=== PATIENT | female | born 1940 | race African-American/Black ===

== ENCOUNTER → 2016-06-04 | Outpatient (CLI) | payer OTHER, MEDICARE ==
[2015-01-16 18:00] VITALS: BP 141/81
[~2016-06-04] MED LIST: ASPI-482 PO; CLON0.1T PO; DILT120T3 PO; LOSA1TAB17 PO; METF10002 PO; METO200T3 PO; NIFE30TA7 PO; SULF1TAB24 PO
--- NOTE | 2016-06-04 10:54 | RAD ---
EXAM: MAMMO HEATH SCREENING BILATERAL. HISTORY: Screening. History of left breast cancer with lumpectomy and radiation 16 years earlier. COMPARISON: 05/17/2015 and 05/10/2014. FINDINGS: 2-D and 3-D tomosynthesis mammograms were obtained of both breasts in the CC and MLO projections. Computer-aided detection (CAD) was utilized. Postsurgical and posttreatment change can be seen involving the left breast, similar to previous study. The breast parenchyma demonstrate scattered fibroglandular densities (tissue density B). No dominant suspicious mass, suspicious microcalcifications, or new architectural distortion is identified. IMPRESSION: No mammographic evidence of malignancy. BI-RADS CATEGORY: 2 BENIGN FINDING RECOMMENDED FOLLOW-UP: 12M 12 MONTH FOLLOW-UP PQRS compliance statement: Patient information was entered into a reminder system with a target due date for the next mammogram. Mammography is a sensitive method for finding small breast cancers, but it does not detect them all and is not a substitute for careful clinical examination. A negative mammogram does not negate a clinically suspicious finding and should not result in delay in biopsying a clinically suspicious abnormality. "Our facility is accredited by the [employer] Mammography Program."
== END | disposition home or self-care (01) ==
LOC: MAMMO 08:52
PROVIDERS: ATTEND Physician Assistant
DX: Z12.31 Encounter for screening mammogram for malignant neoplasm of breast (principal); Z85.3 Personal history of malignant neoplasm of breast
CPT/HCPCS: 77063; G0202; 77067

== ENCOUNTER → 2016-06-17 | Outpatient (CLI) | payer OTHER, MEDICARE ==
[2015-01-16 18:00] VITALS: BP 141/81
--- NOTE | 2016-06-17 16:40 | RAD ---
Exam performed: Left fifth toe including foot 3 views. Clinical Indication: Pain in the left fifth toe while walking, no injury. Date of Service:06/17/16. Comparison :None available Findings: PA, oblique and lateral radiographs of the left fifth toe including x-ray foot reveal the osseous structures to be intact and well aligned. The joint spaces are well preserved and the articular margins are smooth. Impression: No acute abnormality seen in the left fifth toe.
== END | disposition home or self-care (01) ==
LOC: DXRAD 15:56
PROVIDERS: ATTEND Physician Assistant
DX: M79.675 Pain in left toe(s) (principal)
CPT/HCPCS: 73660

== ENCOUNTER → 2016-06-20 | Outpatient (CLI) | payer OTHER, MEDICARE ==
[2015-01-16 18:00] VITALS: BP 141/81
--- NOTE | 2016-06-20 10:09 | RAD ---
Exam performed: Complete abdominal ultrasound. History: Elevated amylase and weight loss. Date of service: 06/20/16. Comparison: None available Technique: Real-time grayscale imaging of the complete abdomen is performed and images are obtained. Findings: The liver is normal in size and echogenicity and measures 14.1 cm in length. There are punctate calcifications in the liver and spleen probably related to remote granulomatous infection. No intra or extrahepatic biliary ductal dilatation is seen. The common bile duct is nondilated and measures 3.7 mm. Bilateral kidneys and spleen appear normal. The right kidney measures 10.4 x 5.4 x 4.97 cm the left kidney measures 10.3 x 5.0 x 3.9 cm. The right kidney appears somewhat malrotated containing 2 simple cysts up to 2 cm. Pancreas, IVC and aorta appear normal. Mild dilation of the pancreatic duct is seen measuring up to 2.4 mm. No free fluid. Impression: 1. 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 2. Prominence of pancreatic duct measuring 2.4 mm. Given absence of additional findings, this is of unknown clinical significance. Further evaluation with CT or MRI of the abdomen with pancreatic protocol may be obtained if clinically indicated.
== END | disposition home or self-care (01) ==
LOC: US 07:53
PROVIDERS: ATTEND Physician Assistant
DX: N28.1 Cyst of kidney, acquired (principal); Q63.2 Ectopic kidney; R94.8 Abnormal results of function studies of other organs and systems
CPT/HCPCS: 76700

== ENCOUNTER 2016-06-27 16:36 | Emergency (ER) | payer OTHER, MEDICARE ==
[~2016-06-27] VITALS: Ht 160 cm; Wt 55.3 kg
[2016-06-27 17:01] VITALS: BP 143/71
--- NOTE | 2016-06-27 18:41 | RAD ---
PROCEDURE Single-view chest and bilateral ribs dated 06/27/2016. HISTORY Back and rib pain. TECHNIQUE Single view of chest performed along with single-view bilateral ribs. Flat. COMPARISON 11/19/2011. FINDINGS Heart and mediastinal contours are stable. There is scattered calcified granuloma, unchanged. Lungs are clear without focal consolidation. No pleural effusion or pneumothorax. Images of the bilateral ribs show no evidence of displaced right or left rib fracture. No acute bony abnormality. IMPRESSION - No acute radiographic abnormality. No evidence of displaced rib fracture. - Old granulomas disease. Electronically signed by: Hermilo Villarreal (June 27, 2016 18:40:49)
--- NOTE | 2016-06-27 18:46 | PHYS DOC ---
General Chief Complaint: BACK PAIN OR INJURY Stated Complaint: BACK PAIN Time Seen by MD: 18:18 Source: patient Exam Limitations: no limitations Problems: History of Present Illness Initial Comments Pt is 76/F to ED c/o b/l rib and upper back pain. Pt denies trauma/exertion, past few days nonspecific rib/back pain. No leg/ bowel/bladder/saddle sx, pain worse with certain movements/reproducible. No cp/ sob/n/v/d, OTC not helping. Sx described as mild to moderate, no midline or bony pain. Timing/Duration: unsure Severity: moderate Modifying Factors: worse with movement, improves with rest Associated Symptoms: other Allergies: Coded Allergies: No Known Drug Allergies (Unverified , 03/24/14) Past Medical History Medical History: diabetes, hypertension Surgical History: noncontributory Family History Significant Family History: hypertension Social History Smoker: non-smoker Alcohol: none Drugs: none Review of Systems Constitutional: denies chills, denies fever Respiratory: see HPI, denies cough, denies shortness of breath Cardiovascular: see HPI, denies chest pain, denies palpitations, denies syncope Gastrointestinal: denies nausea, denies vomiting Genitourinary: denies dysuria, denies frequency, denies hematuria Musculoskeletal: see HPI Psychiatric/Neurological: denies headache, denies numbness, denies paresthesia , denies weakness Physical Exam General Appearance: WD/WN, no apparent distress Ear, Nose, Throat: hearing grossly normal, normal ENT inspection Neck: non-tender, supple Respiratory: normal breath sounds, no respiratory distress, other (rib pain reproducible) Cardiovascular: normal peripheral pulses, regular rate, rhythm Gastrointestinal: non tender, soft Back: no CVA tenderness, no vertebral tenderness Extremities: non-tender, normal inspection Neurologic/Psychiatric: drapery head former II-XII nml as tested, no motor/sensory deficits, alert, normal mood/affect, oriented x 3 Skin: normal color, warm/dry Orders, Labs, Meds PATIENT: ERNA FRENCH ACCOUNT: [id number] : 1940 LOCATION: ER AGE: 76 SEX: F EXAM STATUS: REG ER ORD. PHYSICIAN: SHERIDAN PETERS DO REASON: back /rib pain PROCEDURE: RIBS BILAT & PA CXR 4+V PROCEDURE Single-view chest and bilateral ribs dated 06/27/2016. HISTORY Back and rib pain. TECHNIQUE Single view of chest performed along with single-view bilateral ribs. Flat. COMPARISON 11/19/2011. FINDINGS Heart and mediastinal contours are stable. There is scattered calcified granuloma, unchanged. Lungs are clear without focal consolidation. No pleural effusion or pneumothorax. Images of the bilateral ribs show no evidence of displaced right or left rib fracture. No acute bony abnormality. IMPRESSION - No acute radiographic abnormality. No evidence of displaced rib fracture. - Old granulomas disease. Electronically signed by: Hermilo Villarreal (June 27, 2016 18:40:49) DICTATED AND SIGNED BY: HERMILO VILLARREAL MD DATE: 06/27/16 1840 CC: SHERIDAN PETERS DO; KANCHAN MG; KHADIJAH AGUIRRE DO ~ UA negative Departure Time of Disposition: 19:18 Disposition: 01 HOME, SELF-CARE Diagnosis: costochondritis Condition: GOOD Patient Instructions: Costochondritis, [id number] Additional Instructions: Off work tomorrow. Keep activity to "pain-free." Heating pad to affected area 20 minutes, 4-6 times daily followed by gentle stretching. Follow up with your doctor in 1-2 weeks if no better. Return to ED with new or changing symptoms. KHADIJAH AGUIRRE DO June 27, 2016 18:46
[2016-06-27] MEDS ORDERED: HYDR-971 PO (19:18)
[2016-06-27] MEDS ORDERED: NAPR500T PO (19:18)
[2016-06-27 19:33] LABS: BILIRUBIN,URINE NEG (NEG); CLARITY,URINE CLEAR; COLOR,URINE YELLOW; NITRITE,URINE NEG (NEG); UROBILINOGEN,URINE 2 mg/dL (0.2 mg/dL)
[2016-06-27 19:34] LABS: GLUCOSE,URINE NEG (NEG)
== END 2016-06-27 19:35 | disposition home or self-care (01) ==
LOC: ER 16:36
DX: M94.0 Chondrocostal junction syndrome [Tietze] (principal); E11.9 Type 2 diabetes mellitus without complications; I10 Essential (primary) hypertension
CPT/HCPCS: 71111; 81003; 99284-25

== ENCOUNTER → 2016-07-11 | Outpatient (CLI) | payer OTHER, MEDICARE ==
[2016-06-27 17:01] VITALS: BP 143/71
[~2016-07-11] MED LIST changes: +HYDR-971 PO; +IOHEXOL 300 MG/ML 75 ML VIAL. IV ONE; +NAPR500T PO
[2016-07-11 09:02] LABS: CREATININE 0.8 mg/dL (0.6-1.0); GFR 84.8
--- NOTE | 2016-07-11 10:31 | RAD ---
Indication slightly prominent pancreatic duct. Multiphase imaging through the abdomen was performed. Initially noncontrast images were obtained. This was followed by arterial phase imaging, portal venous phase imaging and final delayed images. Approximately 75 cc of Omnipaque 300 was administered. No oral contrast was administered. Note is made of the abdominal ultrasound examination the accompanying report 06/20/2016. The lung bases are clear. There are scattered granulomas in the liver and spleen. No adrenal anomalies are seen. There are 2 right renal cysts. There is no significant adenopathy seen. No acute finding is apparent in the abdomen. The pancreas appears unremarkable. No pancreatic mass is seen. Atherosclerotic plaquing associated with the abdominal aorta is noted. A duodenal diverticulum is noted IMPRESSION: No acute finding seen in the abdomen. No pancreatic mass seen. Right renal cysts . PQRS Compliance Statement: One or more of the following individualized dose reduction techniques were utilized for this examination: 1. Automated exposure control 2. Adjustment of the mA and/or kV according to patient size 3. Use of iterative reconstruction technique
== END | disposition home or self-care (01) ==
LOC: CT 08:26
PROVIDERS: ATTEND Physician Assistant
DX: K86.89 Other specified diseases of pancreas (principal); N28.1 Cyst of kidney, acquired; J44.9 Chronic obstructive pulmonary disease, unspecified; I10 Essential (primary) hypertension; Z79.01 Long term (current) use of anticoagulants
CPT/HCPCS: 36415; 74170; 82565; Q9967

== ENCOUNTER 2017-01-09 14:55 | Inpatient (IN) | payer OTHER, MEDICARE ==
[~2017-01-09] VITALS: Ht 160 cm; Wt 52.2 kg
[~2017-01-09 14:55] MED LIST changes: -IOHEXOL 300 MG/ML 75 ML VIAL. IV ONE; -LOSA1TAB17 PO; +LOSA1TAB22 PO; -METO200T3 PO; +METO200T5 PO
--- NOTE | 2017-01-09 14:56 | PHYS DOC ---
Past History Past Medical History: Diabetes, Hypertension Past Surgical History: No Surgical History Smoking: Non-smoker Alcohol Use: None Drug Use: None Adult General Chief Complaint Chief Complaint: chest tightness HPI HPI Patient is a 76 year old female who presents with tightness since 3 AM this morning. She states it feels worse when she twists and turns and try to tile picker heavy objects, otherwise she states nothing makes the discomfort better or worse. She feels a little short of breath. She denies any fevers chills nausea or vomiting. She does have a history of diabetes, she is a previous smoker smoke for approximately 20 years and stopped about 20 years ago. 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 Review of Systems Review of Systems Constitutional: Denies fever or chills [] Eyes: Denies change in visual acuity, redness, or eye pain [] HENT: Denies nasal congestion or sore throat [] Respiratory: Denies cough or shortness of breath [] Cardiovascular: No additional information not addressed in HPI [] GI: Denies abdominal pain, nausea, vomiting, bloody stools or diarrhea [] : Denies dysuria or hematuria [] Musculoskeletal: Denies back pain or joint pain [] Integument: Denies rash or skin lesions [] Neurologic: Denies headache, focal weakness or sensory changes [] Endocrine: Denies polyuria or polydipsia [] All other systems were reviewed and found to be within normal limits, except as documented in this note. Allergies Allergies Allergies Coded Allergies Type Severity Reaction Last Updated Verified No Known Drug Allergies 03/24/14 No Physical Exam Physical Exam Constitutional: Well developed, well nourished, no acute distress, non-toxic appearance. [] HENT: Normocephalic, atraumatic, bilateral external ears normal, oropharynx moist, no oral exudates, nose normal. [] Eyes: PERRLA, EOMI, conjunctiva normal, no discharge. [] Neck: Normal range of motion, no tenderness, supple, no stridor. [] Cardiovascular:Heart rate regular rhythm, no murmur [] Lungs & Thorax: Bilateral breath sounds clear to auscultation [] Abdomen: Bowel sounds normal, soft, no tenderness, no masses, no pulsatile masses. [] Skin: Warm, dry, no erythema, no rash. [] Back: No tenderness, no CVA tenderness. [] Extremities: No tenderness, no cyanosis, no clubbing, ROM intact, no edema. [] Neurologic: Alert and oriented X 3, normal motor function, normal sensory function, no focal deficits noted. [] Psychologic: Affect normal, judgement normal, mood normal. [] EKG EKG EKG shows sinus rhythm with rate of [address] elevations, T-wave inversion in lead V3, normal axis, QTC 83 ms, as interpreted by me. Radiology/Procedures Radiology/Procedures [address] [address] IMAGING REPORT Signed PATIENT: ERNA FRENCH ACCOUNT: [id number] : 1940 LOCATION: ER AGE: 76 SEX: F EXAM STATUS: REG ER ORD. PHYSICIAN: JEFF ESCOBAR MD REASON: chest pain PROCEDURE: CHEST PA & LATERAL CHEST PA LATERAL Clinical Indication: chest pain Comparison: Chest radiograph and rib series dated 06/27/2016 Findings: Normal lung volume. Remote granulomatous disease. No focal consolidation. Normal pulmonary vasculature. No pleural effusion or pneumothorax. The cardiomediastinal silhouette and great vessels are normal. Left posterior rib fracture, new from prior exam. IMPRESSION: 1. No focal consolidation. 2. Left fourth posterior rib fracture, new from prior exam. These findings were discussed with Dr. Escobar at 4:15 PM on 01/09/2017. DICTATED AND SIGNED BY: KARI ANNE MD DATE: 01/09/17 9404 CC: JEFF ESCOBAR MD; KANCHAN MG ~ Impressions: Chest pain Left posterior rib fracture Course & Med Decision Making Course & Med Decision Making Pertinent Labs and Imaging studies reviewed. (See chart for details) EKG shows T-wave inversion in V3 which is isolated, chest x-ray shows fourth posterior left-sided rib fracture however this is not where she is having pain, her pain is on the right side. Her labs show slightly elevated CK and CK-MB. Her pain did improve somewhat with nitroglycerin. Her troponin is negative. D- dimer is pending at this time. She's being admitted to the hospitalist in stable condition. She did receive a full dose aspirin. Dragon Disclaimer Dragon Disclaimer This electronic medical record was generated, in whole or in part, using a voice recognition dictation system. Departure Departure: Impression: Primary Impression: Chest pain Disposition: ADMITTED INPATIENT Admitting Physician: Garrett Jung Condition: STABLE Referrals: KANCHAN MG (PCP) JEFF ESCOBAR MD Jan 09, 2017 14:56
[2017-01-09] MEDS ORDERED: NITROGLYCERIN SUBLINGUAL 0.4 MG BOTTLE OF 25. SL PRN (15:15)
[2017-01-09 15:33] LABS: BASO % 1 % (0-3); EOS # 0.1 x10^3/uL (0.0-0.7); EOS % 1 % (0-3); HEMATOCRIT 39.4 % (36.0-47.0); HEMOGLOBIN 13.3 g/dL (12.0-15.5); LYMPH # 1.3 x10^3/uL (1.0-4.8); LYMPH % 27 % (24-48); MEAN CORPUSCULAR HEMOGLOBIN 29 pg (25-35); MEAN CORPUSCULAR HGB CONC 34 g/dL (31-37); MEAN CORPUSCULAR VOLUME 85 fL (79-100); MONO # 0.3 x10^3/uL (0.0-1.1); MONO % 7 % (0-9); NEUT # 3.2 x10^3uL (1.8-7.7); NEUT % 65 % (31-73); PLATELET COUNT 201 x10^3/uL (140-400); RED BLOOD COUNT 4.67 x10^6/uL (3.50-5.40); RED CELL DISTRIBUTION WIDTH 14.6 % (11.5-14.5)
[2017-01-09 15:55] LABS: ALBUMIN 3.6 g/dL (3.4-5.0); CALCIUM 9.1 mg/dL (8.5-10.1); CREATININE 0.8 mg/dL (0.6-1.0); DIRECT BILIRUBIN 0.1 mg/dL (0.0-0.2); GFR 84.8; MAGNESIUM 1.8 mg/dL (1.8-2.4); POTASSIUM 3.9 mmol/L (3.5-5.1); TOTAL BILIRUBIN 0.2 mg/dL (0.2-1.0); TOTAL PROTEIN 7.5 g/dL (6.4-8.2)
[2017-01-09 16:06] LABS: BILIRUBIN,URINE NEG (NEG); CLARITY,URINE HAZY; COLOR,URINE YELLOW; GLUCOSE,URINE NEG (NEG)
[2017-01-09 16:07] LABS: BACTERIA,URINE 0 /HPF (0-FEW); NITRITE,URINE NEG (NEG); SQUAMOUS EPITHELIAL CELL,UR MOD /LPF; UROBILINOGEN,URINE 1 mg/dL (0.2 mg/dL)
--- NOTE | 2017-01-09 16:22 | RAD ---
CHEST PA LATERAL Clinical Indication: chest pain Comparison: Chest radiograph and rib series dated 06/27/2016 Findings: Normal lung volume. Remote granulomatous disease. No focal consolidation. Normal pulmonary vasculature. No pleural effusion or pneumothorax. The cardiomediastinal silhouette and great vessels are normal. Left posterior rib fracture, new from prior exam. IMPRESSION: 1. No focal consolidation. 2. Left fourth posterior rib fracture, new from prior exam. These findings were discussed with Dr. Oh at 4:15 PM on 01/09/2017.
--- NOTE | 2017-01-09 16:24 | EKG ---
[address] [address] Test Date: 2017-01-09 Test Time: 15:41:14 Pat Name: ERNA FRENCH Department: Room: Gender: F Music Video Director: BRANDI : 1940 Requested By: JEFF ESCOBAR Order Number: [id number] Reading MD: Drew Miller MD Measurements Intervals Reading Rate: 83 P: 51 MS: 134 QRS: 20 QRSD: 78 T: 36 QT: 350 QTc: 412 Interpretive Statements SINUS RHYTHM Electronically Signed On 01-14-2017 15:23:06 TICKET COLLECTOR OR USHER by Drew Miller MD
[2017-01-09] MEDS: MORPHINE SULFATE 2 MG/ML DISP.SYRIN. IV/SQ PRN ×2 (17:05→17:55)
[2017-01-09] MEDS ORDERED: ASPIRIN 325 MG TABLET PO ONE (17:30)
[2017-01-09] MEDS ORDERED: ONDANSETRON PF 4 MG/2 ML VIAL. IV PRN (17:30)
[2017-01-09] MEDS ORDERED: IOHEXOL 300 MG/ML 75 ML VIAL. IV ONE (17:45)
[2017-01-09] MEDS ORDERED: CONTRAST GIVEN MC PRN (17:45)
--- NOTE | 2017-01-09 18:19 | RAD ---
CTA Chest with contrast: Clinical History: SHORT OF AIR, ELEVATED D-DIMER
75MLS OMNI 300 IV CONTRAST
NO PRIORS Shortness of breath. Axial helical images of the chest were obtained after the administration of 75 cc of IV Omni 300 and timed appropriately for a pulmonary arterial study. Conventional axial reconstruction was performed in addition to coronal, sagittal and bilateral oblique MIP (maximum intensity projection). This study was ordered to detect possible pulmonary embolism. There are no filling defects to suggest pulmonary embolism. Description There is a compression fracture of the T5 vertebral body with mild loss of stature and with paravertebral soft tissue mass. Linear opacities lung bases are likely discoid atelectasis or scar. There is no mediastinal or hilar lymphadenopathy. There is a moderately large lymph node in the left axilla measures 1.8 cm in its short axis. The thoracic aorta appears normal. Impression: 1. No evidence of pulmonary embolism. 2. Compression fracture of T5 with a perivertebral process left worse than right. This suggests a pathologic fracture with hematoma or soft tissue extension. 3. Moderately large lymph node in the left axilla. Consider possible metastatic breast cancer. PQRS Compliance Statement: One or more of the following individualized dose reduction techniques were utilized for this examination: 1. Automated exposure control 2. Adjustment of the mA and/or kV according to patient size 3. Use of iterative reconstruction technique Electronically signed by: Dannie Guerra III, MD (01/09/2017 6:15 PM) [facility]
[2017-01-09 18:59] VITALS: BP 154/76
[2017-01-09] MEDS ORDERED: DILT240C32 PO (19:17)
[2017-01-09] MEDS ORDERED: LABE200T2 PO (19:17)
[2017-01-09] MEDS ORDERED: LOSA50TA6 PO (19:17)
[2017-01-09] MEDS ORDERED: MONT10TA9 PO (19:17)
[2017-01-09] MEDS ORDERED: CHOL10003 PO (19:18)
[2017-01-09] MEDS: MORPHINE SULFATE 2 MG/ML DISP.SYRIN. IV PRN (20:26)
[2017-01-09 20:37] VITALS: BP 135/69
[2017-01-09 23:01] VITALS: BP 131/66
[2017-01-09] MEDS ORDERED: ALBU8.5H8 IH (23:04)
[2017-01-10] MEDS: MORPHINE SULFATE 2 MG/ML DISP.SYRIN. IV PRN (00:24)
[2017-01-10 04:47] LABS: BASO % 1 % (0-3); EOS # 0.1 x10^3/uL (0.0-0.7); EOS % 1 % (0-3); HEMATOCRIT 39.3 % (36.0-47.0); HEMOGLOBIN 13.4 g/dL (12.0-15.5); LYMPH # 1.5 x10^3/uL (1.0-4.8); LYMPH % 27 % (24-48); MEAN CORPUSCULAR HEMOGLOBIN 29 pg (25-35); MEAN CORPUSCULAR HGB CONC 34 g/dL (31-37); MEAN CORPUSCULAR VOLUME 85 fL (79-100); MONO # 0.5 x10^3/uL (0.0-1.1); MONO % 8 % (0-9); NEUT # 3.4 x10^3uL (1.8-7.7); NEUT % 62 % (31-73); PLATELET COUNT 197 x10^3/uL (140-400); RED CELL DISTRIBUTION WIDTH 14.4 % (11.5-14.5); WHITE BLOOD COUNT 5.4 x10^3/uL (4.0-11.0)
[2017-01-10 04:55] LABS: CREATININE 0.8 mg/dL (0.6-1.0); GFR 84.8; POTASSIUM 4.3 mmol/L (3.5-5.1)
[2017-01-10 05:19] VITALS: BP 154/69
[2017-01-10] MEDS ORDERED: ALBUTEROL SULFATE 8GM INHALER. IH PRN (07:15)
--- NOTE | 2017-01-10 07:24 | PDOC1 ---
History of Present Illness Reason for Visit: Right chest pain History of Present Illness Pt came to ER last night due to chest pain. She reports that it was severe, right sided, and mostly posterior with some radiation around to the front. She denies SOA, dizziness, radiation to arm/neck. Denies MILLAN. Normally sees Dr. Lewis for cardiology. Denies n/v, abd pain, rash, fever, cough. No recent travel. 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 Has a hx of DM, HTN, osteoporosis, and left breast cancer treated w/ lumpectomy and radiation in 2000. Last mammogram was May 2016, was benign. Denies recent night sweats or gland swelling. Pt states she feels about the same. Pain worsens with certain trunk movements, and improves w/ lying still as well as IV morphine. Was able to eat fried chicken last night without problems. Chief Complaint: CHEST PAIN Allergies: Coded Allergies: No Known Drug Allergies (Unverified , 03/24/14) Past Medical History Cardiac: HTN Endocrine: Diabetes, Osteoporosis Past Surgical History: Other (Left breast lumpectomy) Family History: No pertinent hx Past Social History Smoke: No Alcohol: none Drugs: None Lives: with Family Review of Systems Review Of Systems Fourteen system , review of systems has been reviewed. See HPI for pertinent positives and negative responses, other mendez all other systems are negative, non pertinent or non contributory Allergies: Coded Allergies: No Known Drug Allergies (Unverified , 03/24/14) Medications Current Medications Nitroglycerin (Nitrostat) 0.4 mg PRN Q5MIN PRN SL CP RATING > 1/10 Last administered on 01/09/17 15:29; Start 01/09/17 at 15:15; Stop 01/10/17 at 15: 14 Morphine Sulfate (Morphine 2mg Syringe) 2 mg PRN Q15MIN PRN IV/SQ PAIN GREATER THAN 3/10 Last administered on 01/09/17 17:55; Start 01/09/17 at 17:00; Stop 01/09/17 at 18:39; Status DC Aspirin (Manju Aspirin) 325 mg 1X ONCE PO Last administered on 01/09/17 18: 07; Start 01/09/17 at 17:30; Stop 01/09/17 at 17:31; Status DC Ondansetron HCl (Zofran) 4 mg PRN Q4HRS PRN IV NAUSEA/VOMITING; Start at 17:30; Stop 01/10/17 at 17:29 Morphine Sulfate (Morphine 2mg Syringe) 2 mg PRN Q2HR PRN IV PAIN Last administered on 01/10/17 00:24; Start 01/09/17 at 17:30; Stop 01/10/17 at 17: 29 Iohexol (Omnipaque 300 Mg/ml) 75 ml 1X ONCE IV Last administered on 17:44; Start 01/09/17 at 17:45; Stop 01/09/17 at 17:46; Status DC Info (Do NOT chart on this entry -- for MONITORING) 1 each PRN DAILY PRN MC SEE COMMENTS; Start 01/09/17 at 17:45; Stop 01/11/17 at 17:44 Albuterol Sulfate (Ventolin Hfa) 2 puff PRN Q6HRS PRN IH WHEEZING; Start at 07:15; Status UNV Aspirin (Aspirin Enteric Coated) 81 mg DAILY PO ; Start 01/10/17 at 09:00; Status UNV Vitamin D (Vitamin D3) 2,000 unit DAILY PO ; Start 01/10/17 at 09:00; Status UNV Diltiazem HCl (Cardizem 24hr Cd) 480 mg DAILY PO ; Start 01/10/17 at 09:00; Status UNV Labetalol HCl (Trandate) 200 mg BID PO ; Start 01/10/17 at 09:00; Status UNV Losartan Potassium (Cozaar) 50 mg DAILY PO ; Start 01/10/17 at 09:00; Status UNV Montelukast Sodium (Singulair) 10 mg DAILY PO ; Start 01/10/17 at 09:00; Status UNV Active Scripts Active Reported Proair Hfa Inhaler (Albuterol Sulfate) 8.5 Gm Hfa.aer.ad 2 Puff IH PRN Q6HRS PRN Vitamin D3 (Cholecalciferol (Vitamin D3)) 1,000 Unit Tablet 2,000 Unit PO DAILY Losartan Potassium 50 Mg Tablet 50 Mg PO DAILY Montelukast Sodium Tablet (Montelukast Sodium) 10 Mg Tablet 10 Mg PO DAILY Labetalol Hcl 200 Mg Tablet 200 Mg PO BID Diltiazem 24HR Cd (Diltiazem Hcl) 240 Mg Cap.er.24h 2 Cap PO DAILY Aspir 81 (Aspirin) 81 Mg Tablet.dr 81 Mg PO DAILY Metformin Hcl 1,000 Mg Tablet 1,000 Mg PO BIDWMEALS Exam Vital Signs Vital Signs Date Time Temp Pulse Resp B/P (MAP) Pulse Ox O2 Delivery O2 Flow Rate FiO2 01/10/17 05:19 97.8 68 20 154/69 (97) 98 Room Air General Appearance: Alert, Oriented X3, Cooperative, No acute distress HEENT: Atraumatic, PERRLA, EOMI, Mucous membr. moist/pink, Other (Neck supple, full ROM, no JVD, no LAD, no thyromegaly) Respiratory: Clear to auscultation, Normal air movement Heart: Regular rate, Normal S1, Normal S2, No murmurs Abdominal: Normal bowel sounds, Soft, No tenderness, No hepatospenomegaly, No masses Extremities: No edema, Normal pulses, No tenderness/swelling, Other (Left axilla w/ 2 cm lymph node that is rubbery and NTTP) Skin: No breakdown Neuro: Normal speech, Strength at 5/5 X4 ext, Normal tone, Sensation intact, Cranial nerves 3-12 NL, Reflexes 2+, Other (+TTP in the T5 area and surrounding soft tissue. ) Psych/Mental Status: Mental status NL, Mood NL Assessment/Plan Assessment/Plan 1. Chest pain, atypical: EKG shows NSR, troponin neg x 3. Cardiology consulted. I doubt this is cardiac. 2. Elevated d-dimer: CTA negative for PE. 3. Pathologic thoracic compression fracture, T5: Pt does not remember when she started feeling the pain, but I think this is the main source. I am concerned about possible metastatic recurrent breast cancer. I will get a bone scan. Pt has no neurologic findings to suggest spinal cord involvement. 4. Axillary lymphadenopathy: Check u/s, concern for recurrent breast CA. Mammogram done in May 2016 was benign. 5. DM: Hold metformin due to CTA, restart in 72 hrs. 6. HTN: COntinue home meds. 7. DVT proph: Pt fully ambulatory and walks frequently. Low risk. Will do SCD's while in bed. 8. Elevated alk phos: Pt has had w/u with CT and u/s, but I suspect the alk phos is due to the bony abnormalities, not her liver/pancreas. COURSE Allergies Coded Allergies Type Severity Reaction Last Updated Verified No Known Drug Allergies 03/24/14 No Laboratory Tests Test 01/09/17 15:20 01/09/17 15:35 01/09/17 21:45 01/10/17 04:30 White Blood Count 5.0 x10^3/uL (4.0-11.0) 5.4 x10^3/uL (4.0-11.0) Red Blood Count 4.67 x10^6/uL (3.50-5.40) 4.60 x10^6/uL (3.50-5.40) Hemoglobin 13.3 g/dL (12.0-15.5) 13.4 g/dL (12.0-15.5) Hematocrit 39.4 % (36.0-47.0) 39.3 % (36.0-47.0) Mean Corpuscular Volume 85 fL (79-100) 85 fL (79-100) Mean Corpuscular Hemoglobin 29 pg (25-35) 29 pg (25-35) Mean Corpuscular Hemoglobin Concent 34 g/dL (31-37) 34 g/dL (31-37) Red Cell Distribution Width 14.6 % (11.5-14.5) 14.4 % (11.5-14.5) Platelet Count 201 x10^3/uL (140-400) 197 x10^3/uL (140-400) Neutrophils (%) (Auto) 65 % (31-73) 62 % (31-73) Lymphocytes (%) (Auto) 27 % (24-48) 27 % (24-48) Monocytes (%) (Auto) 7 % (0-9) 8 % (0-9) Eosinophils (%) (Auto) 1 % (0-3) 1 % (0-3) Basophils (%) (Auto) 1 % (0-3) 1 % (0-3) Neutrophils # (Auto) 3.2 x10^3uL (1.8-7.7) 3.4 x10^3uL (1.8-7.7) Lymphocytes # (Auto) 1.3 x10^3/uL (1.0-4.8) 1.5 x10^3/uL (1.0-4.8) Monocytes # (Auto) 0.3 x10^3/uL (0.0-1.1) 0.5 x10^3/uL (0.0-1.1) Eosinophils # (Auto) 0.1 x10^3/uL (0.0-0.7) 0.1 x10^3/uL (0.0-0.7) Basophils # (Auto) 0.0 x10^3/uL (0.0-0.2) 0.0 x10^3/uL (0.0-0.2) Prothrombin Time 10.5 SEC (9.4-11.4) Prothromb Time International Ratio 1.0 (0.9-1.1) Activated Partial Thromboplast Time 24 SEC (23-33) D-Dimer (Laura) 1.84 mg/L (0.00-0.50) Sodium Level 143 mmol/L (136-145) 145 mmol/L (136-145) Potassium Level 3.9 mmol/L (3.5-5.1) 4.3 mmol/L (3.5-5.1) Chloride Level 106 mmol/L (98-107) 106 mmol/L (98-107) Carbon Dioxide Level 27 mmol/L (21-32) 31 mmol/L (21-32) Anion Gap 10 (6-14) 8 (6-14) Blood Urea Nitrogen 19 mg/dL (7-20) 19 mg/dL (7-20) Creatinine 0.8 mg/dL (0.6-1.0) 0.8 mg/dL (0.6-1.0) Estimated GFR (Cockcroft-Gault) 84.8 84.8 Glucose Level 94 mg/dL (70-99) 106 mg/dL (70-99) Calcium Level 9.1 mg/dL (8.5-10.1) 9.0 mg/dL (8.5-10.1) Magnesium Level 1.8 mg/dL (1.8-2.4) Total Bilirubin 0.2 mg/dL (0.2-1.0) Direct Bilirubin 0.1 mg/dL (0.0-0.2) Aspartate Amino Transf (AST/SGOT) 27 U/L (15-37) Alanine Aminotransferase (ALT/SGPT) 33 U/L (14-59) Alkaline Phosphatase 135 U/L (46-116) Creatine Kinase 304 U/L (26-192) Creatine Kinase MB (Mass) 8.9 ng/mL (0.0-3.6) Creatine Kinase MB Relative Index 2.9 % (0-4) Troponin I Quantitative < 0.017 ng/mL (0-0.055) < 0.017 ng/mL (0-0.055) < 0.017 ng/mL (0-0.055) ZI-Vla-S-Type Natriuretic Peptide 112 pg/mL (0-124) Total Protein 7.5 g/dL (6.4-8.2) Albumin 3.6 g/dL (3.4-5.0) Lipase 184 U/L (73-393) Urine Collection Type Unknown Urine Color Yellow Urine Clarity Hazy Urine pH 6.5 Urine Specific [place] 1.025 Urine Protein Trace (NEG-TRACE) Urine Glucose (UA) Neg mg/dL (NEG) Urine Ketones (Stick) Neg mg/dL (NEG) Urine Blood Trace (NEG) Urine Nitrite Neg (NEG) Urine Bilirubin Neg (NEG) Urine Urobilinogen Dipstick 1 mg/dL (0.2 mg/dL) Urine Leukocyte Esterase Trace (NEG) Urine RBC 1-2 /HPF (0-2) Urine WBC 1-4 /HPF (0-4) Urine Squamous Epithelial Cells Mod /LPF Urine Bacteria 0 /HPF (0-FEW) Current Medications Medications (Trade) Dose Ordered Sig/Julio Route PRN Reason Start Time Stop Time Status Last Admin Dose Admin Nitroglycerin (Nitrostat) 0.4 mg PRN Q5MIN PRN SL CP RATING > 1/10 01/09/17 15:15 01/10/17 15:14 01/09/17 15:29 Morphine Sulfate (Morphine 2mg Syringe) 2 mg PRN Q15MIN PRN IV/SQ PAIN GREATER THAN 3/10 01/09/17 17:00 01/09/17 18:39 DC 01/09/17 17:55 Aspirin (Manju Aspirin) 325 mg 1X ONCE PO 01/09/17 17:30 01/09/17 17:31 DC 01/09/17 18:07 Ondansetron HCl (Zofran) 4 mg PRN Q4HRS PRN IV NAUSEA/VOMITING 01/09/17 17:30 01/10/17 17:29 Morphine Sulfate (Morphine 2mg Syringe) 2 mg PRN Q2HR PRN IV PAIN 01/09/17 17:30 01/10/17 17:29 01/10/17 00:24 Iohexol (Omnipaque 300 Mg/ml) 75 ml 1X ONCE IV 01/09/17 17:45 01/09/17 17:46 DC 01/09/17 17:44 Info (Do NOT chart on this entry -- for MONITORING) 1 each PRN DAILY PRN MC SEE COMMENTS 01/09/17 17:45 01/11/17 17:44 Albuterol Sulfate (Ventolin Hfa) 2 puff PRN Q6HRS PRN IH WHEEZING 01/10/17 07:15 UNV Aspirin (Aspirin Enteric Coated) 81 mg DAILY PO 01/10/17 09:00 UNV Vitamin D (Vitamin D3) 2,000 unit DAILY PO 01/10/17 09:00 UNV Diltiazem HCl (Cardizem 24hr Cd) 480 mg DAILY PO 01/10/17 09:00 UNV Labetalol HCl (Trandate) 200 mg BID PO 01/10/17 09:00 UNV Losartan Potassium (Cozaar) 50 mg DAILY PO 01/10/17 09:00 UNV Montelukast Sodium (Singulair) 10 mg DAILY PO 01/10/17 09:00 UNV I & O 01/10/17 00:00 Intake Total 240 ml Balance 240 ml Vital Signs Date Time Temp Pulse Resp B/P (MAP) Pulse Ox O2 Delivery O2 Flow Rate FiO2 01/10/17 05:19 97.8 68 20 154/69 (97) 98 Room Air CHEST PA LATERAL Clinical Indication: chest pain Comparison: Chest radiograph and rib series dated 06/27/2016 Findings: Normal lung volume. Remote granulomatous disease. No focal consolidation. Normal pulmonary vasculature. No pleural effusion or pneumothorax. The cardiomediastinal silhouette and great vessels are normal. Left posterior rib fracture, new from prior exam. IMPRESSION: 1. No focal consolidation. 2. Left fourth posterior rib fracture, new from prior exam. CTA Chest with contrast: Clinical History: SHORT OF AIR, ELEVATED D-DIMER
75MLS OMNI 300 IV CONTRAST
NO PRIORS Shortness of breath. Axial helical images of the chest were obtained after the administration of 75 cc of IV Omni 300 and timed appropriately for a pulmonary arterial study. Conventional axial reconstruction was performed in addition to coronal, sagittal and bilateral oblique MIP (maximum intensity projection). This study was ordered to detect possible pulmonary embolism. There are no filling defects to suggest pulmonary embolism. Description There is a compression fracture of the T5 vertebral body with mild loss of stature and with paravertebral soft tissue mass. Linear opacities lung bases are likely discoid atelectasis or scar. There is no mediastinal or hilar lymphadenopathy. There is a moderately large lymph node in the left axilla measures 1.8 cm in its short axis. The thoracic aorta appears normal. Impression: 1. No evidence of pulmonary embolism. 2. Compression fracture of T5 with a perivertebral process left worse than right. This suggests a pathologic fracture with hematoma or soft tissue extension. 3. Moderately large lymph node in the left axilla. Consider possible metastatic breast cancer. PQRS Compliance Statement: One or more of the following individualized dose reduction techniques were utilized for this examination: 1. Automated exposure control 2. Adjustment of the mA and/or kV according to patient size 3. Use of iterative reconstruction technique MANJU CLAY MD Jan 10, 2017 07:24
[2017-01-10] MEDS ORDERED: ALBUTEROL SULFATE 2.5 MG/3 ML NEBU. NEB PRN (07:30)
[2017-01-10] MEDS ORDERED: LOSARTAN 50 MG TABLET. PO SCH (09:00)
[2017-01-10] MEDS ORDERED: LABETALOL HCL 200 MG TABLET PO SCH (09:00)
[2017-01-10] MEDS ORDERED: ASPIRIN ENTERIC COATED 81 MG TABLET.DR. PO SCH (09:00)
[2017-01-10] MEDS ORDERED: MONTELUKAST 10 MG TABLET. PO SCH (09:00)
[2017-01-10] MEDS ORDERED: CHOLECALCIFEROL (VITAMIN D3) 1,000 UNIT TABLET PO SCH (09:00)
--- NOTE | 2017-01-10 09:16 | PDOC2 ---
CONSULT Date of Admission DATE: 01/10/17 TIME: 09:00 Reason for Consult: chest pain Problem List Problems Medical Problems: (1) Chest pain Status: Acute History of Present Illness Ms Melgoza is a 76 year old female with history of hypertension, hyperlipidemia and diabetes mellitus. She reports waking from sleep yesterday morning with discomfort in her left subscapular region with pressure radiating to her chest. She worked her normal shift in housekeeping and reports some increased discomfort with upper body movements but otherwise steady level of discomfort all day. She denies any associated symptoms. She denies any limitations in her functional capacity. She denies dyspnea, palpitations, lightheadedness or syncope. She denies congestive symptoms. She is currently free from discomfort. Past Medical History ECHO 02/06/2016 Left ventricle systolic function is normal. The Ejection Fraction is 60-65%. There is normal LV segmental wall motion. Trace to mild mitral regurgitation. Mild tricuspid regurgitation. The PA pressure was estimated at 25 mmHg. There is no evidence of significant pericardial effusion. Cardiovascular: HTN, hyperipidemia Heme/Onc: Other (breast cancer) Musculoskeletal: Other (osteoporosis ) Endocrine: Diabetes, Other (benign thyroid tumor) Past Surgical History lumpectomy and radiation therapy for breast CA benign thyroid tumor removal Family History no family history of CAD + history of cancer Social History non smoker, no ETOH, no illicit drugs, works in housekeeping at [employer] Current Medications Current Medications Nitroglycerin (Nitrostat) 0.4 mg PRN Q5MIN PRN SL CP RATING > 1/10 Last administered on 01/09/17 15:29; Start 01/09/17 at 15:15; Stop 01/10/17 at 15: 14 Morphine Sulfate (Morphine 2mg Syringe) 2 mg PRN Q15MIN PRN IV/SQ PAIN GREATER THAN 3/10 Last administered on 01/09/17 17:55; Start 01/09/17 at 17:00; Stop 01/09/17 at 18:39; Status DC Aspirin (Manju Aspirin) 325 mg 1X ONCE PO Last administered on 01/09/17 18: 07; Start 01/09/17 at 17:30; Stop 01/09/17 at 17:31; Status DC Ondansetron HCl (Zofran) 4 mg PRN Q4HRS PRN IV NAUSEA/VOMITING; Start at 17:30; Stop 01/10/17 at 17:29 Morphine Sulfate (Morphine 2mg Syringe) 2 mg PRN Q2HR PRN IV PAIN Last administered on 01/10/17 00:24; Start 01/09/17 at 17:30; Stop 01/10/17 at 17: 29 Iohexol (Omnipaque 300 Mg/ml) 75 ml 1X ONCE IV Last administered on 17:44; Start 01/09/17 at 17:45; Stop 01/09/17 at 17:46; Status DC Info (Do NOT chart on this entry -- for MONITORING) 1 each PRN DAILY PRN MC SEE COMMENTS; Start 01/09/17 at 17:45; Stop 01/11/17 at 17:44 Albuterol Sulfate (Ventolin Hfa) 2 puff PRN Q6HRS PRN IH WHEEZING; Start at 07:15; Stop 01/10/17 at 07:18; Status DC Aspirin (Aspirin Enteric Coated) 81 mg DAILY PO Last administered on 01/10/17 08:27; Start 01/10/17 at 09:00 Vitamin D (Vitamin D3) 2,000 unit DAILY PO Last administered on 01/10/17 08:26 ; Start 01/10/17 at 09:00 Diltiazem HCl (Cardizem 24hr Cd) 480 mg DAILY PO Last administered on 08:27; Start 01/10/17 at 09:00 Labetalol HCl (Trandate) 200 mg BID PO Last administered on 01/10/17 08:27; Start 01/10/17 at 09:00 Losartan Potassium (Cozaar) 50 mg DAILY PO Last administered on 01/10/17 08:27 ; Start 01/10/17 at 09:00 Montelukast Sodium (Singulair) 10 mg DAILY PO Last administered on 01/10/17 08 :27; Start 01/10/17 at 09:00 Albuterol Sulfate (Ventolin) 2.5 mg PRN Q6HRS PRN NEB SHORTNESS OF BREATH; Start 01/10/17 at 07:30 Active Scripts Active Reported Proair Hfa Inhaler (Albuterol Sulfate) 8.5 Gm Hfa.aer.ad 2 Puff IH PRN Q6HRS PRN Vitamin D3 (Cholecalciferol (Vitamin D3)) 1,000 Unit Tablet 2,000 Unit PO DAILY Losartan Potassium 50 Mg Tablet 50 Mg PO DAILY Montelukast Sodium Tablet (Montelukast Sodium) 10 Mg Tablet 10 Mg PO DAILY Labetalol Hcl 200 Mg Tablet 200 Mg PO BID Diltiazem 24HR Cd (Diltiazem Hcl) 240 Mg Cap.er.24h 2 Cap PO DAILY Aspir 81 (Aspirin) 81 Mg Tablet.dr 81 Mg PO DAILY Metformin Hcl 1,000 Mg Tablet 1,000 Mg PO BIDWMEALS Allergies: Coded Allergies: No Known Drug Allergies (Unverified , 03/24/14) Review of System as per HPI or negative General: Alert, Oriented X3, Cooperative, No acute distress HEENT: Atraumatic, EOMI, Mucous membr. moist/pink Lungs: Clear to auscultation, Normal air movement Heart: Regular rate, Normal S1, Normal S2, No murmurs, Other (no gallops, clicks or rubs) Abdomen: Normal bowel sounds, Soft, No tenderness Extremities: No cyanosis, No edema, Normal pulses Neuro: Normal speech, Strength at 5/5 X4 ext Psych/Mental Status: Mental status NL, Mood NL VITALS Vital Signs Date Time Temp Pulse Resp B/P (MAP) Pulse Ox O2 Delivery O2 Flow Rate FiO2 01/10/17 08:27 68 154/69 01/10/17 05:19 97.8 20 98 Room Air Labs Laboratory Tests Test 01/09/17 15:20 01/09/17 15:35 01/09/17 21:45 01/10/17 04:30 White Blood Count 5.0 x10^3/uL (4.0-11.0) 5.4 x10^3/uL (4.0-11.0) Red Blood Count 4.67 x10^6/uL (3.50-5.40) 4.60 x10^6/uL (3.50-5.40) Hemoglobin 13.3 g/dL (12.0-15.5) 13.4 g/dL (12.0-15.5) Hematocrit 39.4 % (36.0-47.0) 39.3 % (36.0-47.0) Mean Corpuscular Volume 85 fL (79-100) 85 fL (79-100) Mean Corpuscular Hemoglobin 29 pg (25-35) 29 pg (25-35) Mean Corpuscular Hemoglobin Concent 34 g/dL (31-37) 34 g/dL (31-37) Red Cell Distribution Width 14.6 % (11.5-14.5) 14.4 % (11.5-14.5) Platelet Count 201 x10^3/uL (140-400) 197 x10^3/uL (140-400) Neutrophils (%) (Auto) 65 % (31-73) 62 % (31-73) Lymphocytes (%) (Auto) 27 % (24-48) 27 % (24-48) Monocytes (%) (Auto) 7 % (0-9) 8 % (0-9) Eosinophils (%) (Auto) 1 % (0-3) 1 % (0-3) Basophils (%) (Auto) 1 % (0-3) 1 % (0-3) Neutrophils # (Auto) 3.2 x10^3uL (1.8-7.7) 3.4 x10^3uL (1.8-7.7) Lymphocytes # (Auto) 1.3 x10^3/uL (1.0-4.8) 1.5 x10^3/uL (1.0-4.8) Monocytes # (Auto) 0.3 x10^3/uL (0.0-1.1) 0.5 x10^3/uL (0.0-1.1) Eosinophils # (Auto) 0.1 x10^3/uL (0.0-0.7) 0.1 x10^3/uL (0.0-0.7) Basophils # (Auto) 0.0 x10^3/uL (0.0-0.2) 0.0 x10^3/uL (0.0-0.2) Prothrombin Time 10.5 SEC (9.4-11.4) Prothromb Time International Ratio 1.0 (0.9-1.1) Activated Partial Thromboplast Time 24 SEC (23-33) D-Dimer (Laura) 1.84 mg/L (0.00-0.50) Sodium Level 143 mmol/L (136-145) 145 mmol/L (136-145) Potassium Level 3.9 mmol/L (3.5-5.1) 4.3 mmol/L (3.5-5.1) Chloride Level 106 mmol/L (98-107) 106 mmol/L (98-107) Carbon Dioxide Level 27 mmol/L (21-32) 31 mmol/L (21-32) Anion Gap 10 (6-14) 8 (6-14) Blood Urea Nitrogen 19 mg/dL (7-20) 19 mg/dL (7-20) Creatinine 0.8 mg/dL (0.6-1.0) 0.8 mg/dL (0.6-1.0) Estimated GFR (Cockcroft-Gault) 84.8 84.8 Glucose Level 94 mg/dL (70-99) 106 mg/dL (70-99) Calcium Level 9.1 mg/dL (8.5-10.1) 9.0 mg/dL (8.5-10.1) Magnesium Level 1.8 mg/dL (1.8-2.4) Total Bilirubin 0.2 mg/dL (0.2-1.0) Direct Bilirubin 0.1 mg/dL (0.0-0.2) Aspartate Amino Transf (AST/SGOT) 27 U/L (15-37) Alanine Aminotransferase (ALT/SGPT) 33 U/L (14-59) Alkaline Phosphatase 135 U/L (46-116) Creatine Kinase 304 U/L (26-192) Creatine Kinase MB (Mass) 8.9 ng/mL (0.0-3.6) Creatine Kinase MB Relative Index 2.9 % (0-4) Troponin I Quantitative < 0.017 ng/mL (0-0.055) < 0.017 ng/mL (0-0.055) < 0.017 ng/mL (0-0.055) KP-[id number]-U-Type Natriuretic Peptide 112 pg/mL (0-124) Total Protein 7.5 g/dL (6.4-8.2) Albumin 3.6 g/dL (3.4-5.0) Lipase 184 U/L (73-393) Urine Collection Type Unknown Urine Color Yellow Urine Clarity Hazy Urine pH 6.5 Urine Specific [place] 1.025 Urine Protein Trace (NEG-TRACE) Urine Glucose (UA) Neg mg/dL (NEG) Urine Ketones (Stick) Neg mg/dL (NEG) Urine Blood Trace (NEG) Urine Nitrite Neg (NEG) Urine Bilirubin Neg (NEG) Urine Urobilinogen Dipstick 1 mg/dL (0.2 mg/dL) Urine Leukocyte Esterase Trace (NEG) Urine RBC 1-2 /HPF (0-2) Urine WBC 1-4 /HPF (0-4) Urine Squamous Epithelial Cells Mod /LPF Urine Bacteria 0 /HPF (0-FEW) Test 01/10/17 07:46 Glucose (Fingerstick) 124 mg/dL (70-99) Images EKG - sinus rhythm without ischemic changes CTA - Impression: 1. No evidence of pulmonary embolism. 2. Compression fracture of T5 with a perivertebral process left worse than right. This suggests a pathologic fracture with hematoma or soft tissue extension. 3. Moderately large lymph node in the left axilla. Consider possible metastatic breast cancer. Assessment/Plan 1. Chest pain, atypical - NH ruled out. Suspect musculoskeletal in nature. As she does have risk factors including resistant hypertension, hyperlipidemia and diabetes, I believe a stress test would not be unreasonable but could be achieved outpatient. Continue current medications to include labetalol and aspirin. check lipids and add statin as indicated. Last echo was completed in Jan 2016 and revealed normal LV function and wall motion. 2. hypertension - fair control on multiple medications. Increase Losartan. Could consider renal duplex for LOGAN. 3. hyperlipidemia - check lipids. 4. elevated d dimer - CT negative for PE 5. Pathologic thoracic compression fracture, T - per IM 6. lymphadenopathy with history of breast cancer - bone scan today, per IM 7. Diabetes mellitus - per IM Problems: SILVIA STRAUSS APRN Jan 10, 2017 09:16
[2017-01-10 11:24] VITALS: BP 159/71
[2017-01-10 16:11] VITALS: BP 147/69
--- NOTE | 2017-01-10 16:13 | RAD ---
Bone scan Indication: Pathologic T5 fractures and right posterior rib fractures Technique: Nuclear medicine bone scan would 25 mCi of technetium 99m MDP with anterior and posterior planar images of the whole body and spot images of the right and left ribs. Comparison: CT chest from 01/09/2017 Findings: Focal uptake is noted in the left first rib, 12th and 10th rib. Focal uptake also noted in the T5, T8 and L1 vertebral body. Focal uptake also noted in the right superior aspect of the skull. Symmetric shoulder, knee and SI joint uptake most likely degenerative. Impression: Multifocal uptake of the radiopharmaceutical as described above concerning for osteoblastic process most likely blastic metastasis if patient has history of known malignancy.
--- NOTE | 2017-01-10 16:18 | RAD ---
Ultrasound of the left axilla Indication: History of left breast cancer in 2000. Enlarged lymph nodes seen on CT angiography. History of left lumpectomy. Technique: Grayscale and color Doppler ultrasound images of the left axilla. Comparison: CT chest from 01/09/2017 Findings: Lobulated hypoechoic mass measuring 2.8 x 2.7 x 1.5 cm seen in the left axilla which corresponds to the enlarged lymph node seen on the CT chest. There is some internal vascularity noted in this lesion. Additional small satellite lymph nodes are seen adjacent to the dominant lymph node as described above. Impression: Mass in the left axilla which corresponds to the enlarged lymph node seen on previous CT concerning for metastasis in the setting of known history of breast cancer. Biopsy recommended.
[2017-01-10 18:29] VITALS: BP 156/75
[2017-01-10] MEDS ORDERED: TRAM50TA PO ×2 (19:16→19:32)
--- NOTE | 2017-01-10 19:19 | DISCH ---
DISCHARGE INSTRUCTIONS-DC Condition on Discharge Condition on Discharge: Stable Problems: Activity after Discharge Activity Instructions for Disc: Activity as tolerated (No heavy lifting) Diet after Discharge Diet after Discharge: Cardiac, Diabetic No Calorie Level Checks after Discharge Checks after discharge: Check blood sugar, ac/hs Contacting the DRAbdulkadir after DC Call your doctor for: If your condition worsens Follow-Up Follow up with: Oncology next week (Dr. Gil) Follow up with: PCP in 2 weeks MANJU CLAY MD Jan 10, 2017 19:19
--- NOTE | 2017-01-10 19:25 | PDOC3 ---
Discharge Summary Discharge Summary Date of Admission Date of Admission: Jan 09, 2017 at 17:10 Admitting Diagnosis Chest pain T5 compression fracture HTN DM2 Date of Discharge: Jan 10, 2017 Discharge Diagnosis Chest pain T5 compression fracture HTN DM2 Metastatic breast cancer Laboratory Findings Laboratory Tests Test 01/09/17 15:20 01/09/17 15:35 01/09/17 21:45 01/10/17 04:30 White Blood Count 5.0 x10^3/uL (4.0-11.0) 5.4 x10^3/uL (4.0-11.0) Red Blood Count 4.67 x10^6/uL (3.50-5.40) 4.60 x10^6/uL (3.50-5.40) Hemoglobin 13.3 g/dL (12.0-15.5) 13.4 g/dL (12.0-15.5) Hematocrit 39.4 % (36.0-47.0) 39.3 % (36.0-47.0) Mean Corpuscular Volume 85 fL (79-100) 85 fL (79-100) Mean Corpuscular Hemoglobin 29 pg (25-35) 29 pg (25-35) Mean Corpuscular Hemoglobin Concent 34 g/dL (31-37) 34 g/dL (31-37) Red Cell Distribution Width 14.6 % (11.5-14.5) 14.4 % (11.5-14.5) Platelet Count 201 x10^3/uL (140-400) 197 x10^3/uL (140-400) Neutrophils (%) (Auto) 65 % (31-73) 62 % (31-73) Lymphocytes (%) (Auto) 27 % (24-48) 27 % (24-48) Monocytes (%) (Auto) 7 % (0-9) 8 % (0-9) Eosinophils (%) (Auto) 1 % (0-3) 1 % (0-3) Basophils (%) (Auto) 1 % (0-3) 1 % (0-3) Neutrophils # (Auto) 3.2 x10^3uL (1.8-7.7) 3.4 x10^3uL (1.8-7.7) Lymphocytes # (Auto) 1.3 x10^3/uL (1.0-4.8) 1.5 x10^3/uL (1.0-4.8) Monocytes # (Auto) 0.3 x10^3/uL (0.0-1.1) 0.5 x10^3/uL (0.0-1.1) Eosinophils # (Auto) 0.1 x10^3/uL (0.0-0.7) 0.1 x10^3/uL (0.0-0.7) Basophils # (Auto) 0.0 x10^3/uL (0.0-0.2) 0.0 x10^3/uL (0.0-0.2) Prothrombin Time 10.5 SEC (9.4-11.4) Prothromb Time International Ratio 1.0 (0.9-1.1) Activated Partial Thromboplast Time 24 SEC (23-33) D-Dimer (Laura) 1.84 mg/L (0.00-0.50) Sodium Level 143 mmol/L (136-145) 145 mmol/L (136-145) Potassium Level 3.9 mmol/L (3.5-5.1) 4.3 mmol/L (3.5-5.1) Chloride Level 106 mmol/L (98-107) 106 mmol/L (98-107) Carbon Dioxide Level 27 mmol/L (21-32) 31 mmol/L (21-32) Anion Gap 10 (6-14) 8 (6-14) Blood Urea Nitrogen 19 mg/dL (7-20) 19 mg/dL (7-20) Creatinine 0.8 mg/dL (0.6-1.0) 0.8 mg/dL (0.6-1.0) Estimated GFR (Cockcroft-Gault) 84.8 84.8 Glucose Level 94 mg/dL (70-99) 106 mg/dL (70-99) Calcium Level 9.1 mg/dL (8.5-10.1) 9.0 mg/dL (8.5-10.1) Magnesium Level 1.8 mg/dL (1.8-2.4) Total Bilirubin 0.2 mg/dL (0.2-1.0) Direct Bilirubin 0.1 mg/dL (0.0-0.2) Aspartate Amino Transf (AST/SGOT) 27 U/L (15-37) Alanine Aminotransferase (ALT/SGPT) 33 U/L (14-59) Alkaline Phosphatase 135 U/L (46-116) Creatine Kinase 304 U/L (26-192) Creatine Kinase MB (Mass) 8.9 ng/mL (0.0-3.6) Creatine Kinase MB Relative Index 2.9 % (0-4) Troponin I Quantitative < 0.017 ng/mL (0-0.055) < 0.017 ng/mL (0-0.055) < 0.017 ng/mL (0-0.055) YF-Cel-W-Type Natriuretic Peptide 112 pg/mL (0-124) Total Protein 7.5 g/dL (6.4-8.2) Albumin 3.6 g/dL (3.4-5.0) Lipase 184 U/L (73-393) Thyroid Stimulating Hormone (TSH) 2.222 uIU/mL (0.358-3.740) Urine Collection Type Unknown Urine Color Yellow Urine Clarity Hazy Urine pH 6.5 Urine Specific [place] 1.025 Urine Protein Trace (NEG-TRACE) Urine Glucose (UA) Neg mg/dL (NEG) Urine Ketones (Stick) Neg mg/dL (NEG) Urine Blood Trace (NEG) Urine Nitrite Neg (NEG) Urine Bilirubin Neg (NEG) Urine Urobilinogen Dipstick 1 mg/dL (0.2 mg/dL) Urine Leukocyte Esterase Trace (NEG) Urine RBC 1-2 /HPF (0-2) Urine WBC 1-4 /HPF (0-4) Urine Squamous Epithelial Cells Mod /LPF Urine Bacteria 0 /HPF (0-FEW) Triglycerides Level 28 mg/dL (0-150) Cholesterol Level 170 mg/dL (0-200) LDL Cholesterol, Calculated 107 mg/dL (0-100) VLDL Cholesterol, Calculated 5 mg/dL (0-40) Non-HDL Cholesterol Calculated 112 mg/dL (0-129) HDL Cholesterol 58 mg/dL (40-60) Cholesterol/HDL Ratio 2.0 Test 01/10/17 07:46 01/10/17 11:45 01/10/17 16:37 Glucose (Fingerstick) 124 mg/dL (70-99) 132 mg/dL (70-99) 105 mg/dL (70-99) Hospital Course Pt presented to ER w/ chest pain, which was actually reported as back pain by pt. CT of chest ruled out PE, but showed pathologic compression fracture at T5 , a rib fracture, and abnormal lymph node in left axilla. Subsequent bone scan showed scattered osteoblastic lesions c/w metastatic disease. The sonogram of the left axilla also showed likely metastatic disease, presumably from the breast since the left breast is where she had cancer 16 years ago. Cardiology was consulted about her chest pain, but this was felt to be non-cardiac. Echo is pending at time of discharge. Metformin is held until Saturday 01/13 due to CTA and IV contrast. Pt will be given some tramadol to go home with pending appt w/ oncology next week. I had a long discussion w/ pt and her son about the findings. I suspect that her recent elevation of alk phos has been due to the bone lesions and not her pancreas. I have advised that she defer her GI referral for now until evaluated fully by oncology. She will likely need a biopsy of her lymph node. I have advised that she stay off work until she has received more information about her prognosis. We will attempt to get her in [place] with oncology at [facility] early next week. Pt instructed to f/u with PCP after that. I did tell pt that although this does look like stage IV metastatic cancer, we will not know for sure until she has a biopsy of the lymph node. She v/u. Condition at Discharge: Stable Home Meds Active Scripts Tramadol Hcl (TRAMADOL HCL) 50 Mg Tablet, 50 MG PO PRN Q6HRS Y for PAIN, #30 TAB Prov:MANJU CLAY MD 01/10/17 Reported Medications Albuterol Sulfate (PROAIR HFA INHALER) 8.5 Gm Hfa.aer.ad, 2 PUFF IH PRN Q6HRS Y for WHEEZING 01/09/17 Cholecalciferol (Vitamin D3) (VITAMIN D3) 1,000 Unit Tablet, 2000 UNIT PO DAILY for SUPPLEMENT, TAB 01/09/17 Losartan Potassium (LOSARTAN POTASSIUM) 50 Mg Tablet, 50 MG PO DAILY for HYPERTENSION, SEE COMMENTS 01/09/17 Montelukast Sodium (MONTELUKAST SODIUM TABLET) 10 Mg Tablet, 10 MG PO DAILY for ASTHMA 01/09/17 Labetalol Hcl (LABETALOL HCL) 200 Mg Tablet, 200 MG PO BID for HYPERTENSION, SEE COMMENTS 01/09/17 Diltiazem Hcl (DILTIAZEM 24HR CD) 240 Mg Cap.er.24h, 2 CAP PO DAILY for HYPERTENSION, SEE COMMENTS, CAP.SR 01/09/17 Aspirin (ASPIR 81) 81 Mg Tablet.dr, 81 MG PO DAILY 03/24/14 Metformin Hcl (METFORMIN HCL) 1,000 Mg Tablet, 1000 MG PO BIDWMEALS for ANTI- DIABETIC, TAB 0 Refills 03/24/14 Discontinued Reported Medications Diltiazem Hcl (DILTIAZEM HCL TABLET) 120 Mg Tablet, 120 MG PO QID for FOR HYPERTENSION, #30 TAB 0 Refills 07/19/14 Losartan/Hydrochlorothiazide (LOSARTAN-HCTZ 100-25 MG TAB) 1 Each Tablet, 1 TAB PO DAILY, #30 TAB 5 Refills 07/19/14 Metoprolol Succinate (METOPROLOL SUCCINATE ( XL )) 200 Mg Tab.er.24h, 200 MG PO DAILY for FOR HYPERTENSION, #30 TAB 0 Refills 03/24/14 Inpatient Meds Current Medications Nitroglycerin (Nitrostat) 0.4 mg PRN Q5MIN PRN SL CP RATING > 1/10 Last administered on 01/09/17 15:29; Start 01/09/17 at 15:15; Stop 01/10/17 at 15: 14; Status DC Morphine Sulfate (Morphine 2mg Syringe) 2 mg PRN Q15MIN PRN IV/SQ PAIN GREATER THAN 3/10 Last administered on 01/09/17 17:55; Start 01/09/17 at 17:00; Stop 01/09/17 at 18:39; Status DC Aspirin (Manju Aspirin) 325 mg 1X ONCE PO Last administered on 01/09/17 18: 07; Start 01/09/17 at 17:30; Stop 01/09/17 at 17:31; Status DC Ondansetron HCl (Zofran) 4 mg PRN Q4HRS PRN IV NAUSEA/VOMITING; Start at 17:30; Stop 01/10/17 at 17:29; Status DC Morphine Sulfate (Morphine 2mg Syringe) 2 mg PRN Q2HR PRN IV PAIN Last administered on 01/10/17 00:24; Start 01/09/17 at 17:30; Stop 01/10/17 at 17: 29; Status DC Iohexol (Omnipaque 300 Mg/ml) 75 ml 1X ONCE IV Last administered on 17:44; Start 01/09/17 at 17:45; Stop 01/09/17 at 17:46; Status DC Info (Do NOT chart on this entry -- for MONITORING) 1 each PRN DAILY PRN MC SEE COMMENTS; Start 01/09/17 at 17:45; Stop 01/11/17 at 17:44 Albuterol Sulfate (Ventolin Hfa) 2 puff PRN Q6HRS PRN IH WHEEZING; Start at 07:15; Stop 01/10/17 at 07:18; Status DC Aspirin (Aspirin Enteric Coated) 81 mg DAILY PO Last administered on 01/10/17 08:27; Start 01/10/17 at 09:00 Vitamin D (Vitamin D3) 2,000 unit DAILY PO Last administered on 01/10/17 08:26 ; Start 01/10/17 at 09:00 Diltiazem HCl (Cardizem 24hr Cd) 480 mg DAILY PO Last administered on 08:27; Start 01/10/17 at 09:00 Labetalol HCl (Trandate) 200 mg BID PO Last administered on 01/10/17 08:27; Start 01/10/17 at 09:00 Losartan Potassium (Cozaar) 50 mg DAILY PO Last administered on 01/10/17 08:27 ; Start 01/10/17 at 09:00; Stop 01/10/17 at 09:18; Status DC Montelukast Sodium (Singulair) 10 mg DAILY PO Last administered on 01/10/17 08 :27; Start 01/10/17 at 09:00 Albuterol Sulfate (Ventolin) 2.5 mg PRN Q6HRS PRN NEB SHORTNESS OF BREATH; Start 01/10/17 at 07:30 Losartan Potassium (Cozaar) 100 mg DAILY PO ; Start 01/11/17 at 09:00 Active Scripts Active Tramadol Hcl (Tramadol HCl) 50 Mg Tablet 50 Mg PO PRN Q6HRS PRN Reported Proair Hfa Inhaler (Albuterol Sulfate) 8.5 Gm Hfa.aer.ad 2 Puff IH PRN Q6HRS PRN Vitamin D3 (Cholecalciferol (Vitamin D3)) 1,000 Unit Tablet 2,000 Unit PO DAILY Losartan Potassium 50 Mg Tablet 50 Mg PO DAILY Montelukast Sodium Tablet (Montelukast Sodium) 10 Mg Tablet 10 Mg PO DAILY Labetalol Hcl 200 Mg Tablet 200 Mg PO BID Diltiazem 24HR Cd (Diltiazem Hcl) 240 Mg Cap.er.24h 2 Cap PO DAILY Aspir 81 (Aspirin) 81 Mg Tablet.dr 81 Mg PO DAILY Metformin Hcl 1,000 Mg Tablet 1,000 Mg PO BIDWMEALS Activity: as tolerated Diet: Cardiac, Consistent Carbohydrate Consulting Physician: JUAN ANTONIO HAQUE MD Consulting Speciality: Cardiac Follow-up Plan Oncology next week PCP in 1-2 weeks MANJU CLAY MD Jan 10, 2017 19:25
--- NOTE | 2017-01-11 04:50 | CARD ---
APPROVED REPORT EXAM: Two-dimensional and M-mode echocardiogram with Doppler and color Doppler. Other Information Quality : Good INDICATION Chest Pain Chest pressure 2D DIMENSIONS Left Atrium(2D)3.1 (1.6-4.0cm)IVSd1.1 (0.7-1.1cm) Aortic Root(2D)2.7 (2.0-3.7cm)LVDd4.2 (3.9-5.9cm) LVOT Diameter1.9 (1.8-2.4cm)PWd1.1 (0.7-1.1cm) LVDs2.6 (2.5-4.0cm)FS (%) 39.5 % SV56.6 mlLVEF(%)70.4 (>50%) Aortic Valve AoV Peak Michael.129.3cm/sAoV VTI27.5cm AO Peak GR.6.7mmHgLVOT Peak Michael.116.4cm/s LVOT VTI 24.51cmAO Mean GR.4mmHg NADREA (VMAX)2.19kx4PJB (VTI)2.66cm2 Mitral Valve MV E Icjqomtj69.5cm/sMV DECEL [id number] MV A Dipzjbpc18.1cm/sE/A Ratio0.8 Tricuspid Valve TR P. Kzunblnj943kl/sRAP IJGFSVPT2czAy TR Peak Gr.09xyFuTLXV81qyPj LEFT VENTRICLE The left ventricle is normal size. There is normal left ventricular wall thickness. Left ventricle sy stolic function is normal. The Ejection Fraction is 55-60%. There is normal LV segmental wall motion. Transmitral Doppler flow pattern is normal for age. RIGHT VENTRICLE The right ventricle is normal size. The right ventricular systolic function is normal. ATRIA The left atrium size is normal. The right atrium size is normal. The interatrial septum is intact wit h no evidence for an atrial septal defect or patent foramen ovale as noted on 2-D or Doppler imaging. AORTIC VALVE The aortic valve is mildly thickened but opens well. Doppler and Color Flow revealed no significant a ortic regurgitation. There is no significant aortic valvular stenosis. MITRAL VALVE The mitral valve is thickened but opens well. There is no evidence of mitral valve prolapse. There is no mitral valve stenosis. Doppler and Color-flow revealed trace to mild mitral regurgitation. TRICUSPID VALVE The tricuspid valve is normal in structure and function. Doppler and Color Flow revealed trace tricus pid regurgitation. There is no pulmonary hypertension. The PA pressure was estimated at 13 mmHg. Ther e is no tricuspid valve prolapse or vegetation. There is no tricuspid valve stenosis. PULMONIC VALVE Doppler and Color Flow revealed no pulmonic valvular regurgitation. There is no pulmonic valvular mechelle nosis. GREAT VESSELS The aortic root is normal in size. The ascending aorta is normal in size. The IVC is normal in size a nd collapses >50% with inspiration. PERICARDIAL EFFUSION There is no pleural effusion. There is no evidence of significant pericardial effusion. Critical Notification Critical Value: No <Conclusion> Left ventricle systolic function is normal. The Ejection Fraction is 55-60%. There is normal LV segmental wall motion. No significant valvular disease.
[2017-01-11] MEDS ORDERED: LOSARTAN 50 MG TABLET. PO SCH (09:00)
== END 2017-01-10 19:35 | disposition home or self-care (01) | DRG 313 ==
LOC: ER 14:55 → 1 SOUTH 17:10
PROVIDERS: ADMIT Family Medicine; ATTEND Family Medicine
DX: R07.89 Other chest pain (principal); C50.919 Malignant neoplasm of unspecified site of unspecified female breast; M48.54XA Collapsed vertebra, not elsewhere classified, thoracic region, initial encounter for fracture; E11.9 Type 2 diabetes mellitus without complications; E78.5 Hyperlipidemia, unspecified; I10 Essential (primary) hypertension; R59.1 Generalized enlarged lymph nodes; J45.909 Unspecified asthma, uncomplicated; M81.0 Age-related osteoporosis without current pathological fracture; Z85.3 Personal history of malignant neoplasm of breast; Z87.891 Personal history of nicotine dependence; Z92.3 Personal history of irradiation
CPT/HCPCS: 36415; 71020; 71275; 76641; 78306; 80048; 80061; 80076; 81001; 82553; 82947; 83690; 83735; 83880; 84443; 84484; 85025; 85379; 85610; 85730; 87086; 93005; 93306; 96374; 96376; A9503; J2270; Q9967; 99285-25

== ENCOUNTER → 2017-02-19 | Outpatient (CLI) | payer OTHER, MEDICARE ==
[~2017-02-19] MED LIST changes: +ALBU8.5H8 IH; +CHOL10003 PO; +DILT240C32 PO; +LABE200T2 PO; +LOSA50TA6 PO; +MONT10TA9 PO; +NAPR-683 PO; -NAPR500T PO; +TRAM50TA PO
--- NOTE | 2017-02-20 08:13 | RAD ---
Indication: Productive cough for one week. Technique: Two-view chest radiograph was obtained. Comparison is from January 09, 2017. Findings: The lungs are clear. The heart is not enlarged and there is no heart failure. Calcified granuloma on the right and calcified right hilar lymph nodes again are noted. There is no pleural effusion. There are minimal degenerative changes in the spine. Impression: No acute thoracic findings.
== END | disposition home or self-care (01) ==
LOC: RAD 16:58
PROVIDERS: ATTEND Physician Assistant
DX: R05 Cough (principal); E11.9 Type 2 diabetes mellitus without complications; I10 Essential (primary) hypertension; E78.5 Hyperlipidemia, unspecified; Z79.01 Long term (current) use of anticoagulants; Z87.891 Personal history of nicotine dependence
CPT/HCPCS: 71046

== ENCOUNTER → 2017-04-08 | Outpatient (CLI) | payer OTHER, MEDICARE ==
[~2017-04-08] MED LIST changes: +METO200T46 PO; -METO200T5 PO
--- NOTE | 2017-04-08 13:28 | RAD ---
EXAM: Dual energy x-ray absorptiometry (DEXA). 04/08/2017 HISTORY: Post menopausal screening. Comparison: DEXA scan 12/06/2014 TECHNIQUE: Dual energy x-ray absorptiometry of the lumbar spine and right hip was performed. Calculation of bone mineral density based on standard deviations above or below the expected young adult normal value (T-score) was completed. FINDINGS: The average bone mineral density associated with L1-L4 is 0.914 g/cm^2, corresponding with a T-score of -2.2. The average total bone mineral density associated with right hip is 0.824 g/cm^2, corresponding with a T-score of -1.5. IMPRESSION: 1. No significant change in findings of osteopenia in the lumbar spine and right hip. Note: Definitions established by the World Health Organization: 1. Normal: T-score is -1.0 or above the expected mean for a young adult. 2. Osteopenia: T-score is between -1.0 and -2.5. 3. Osteoporosis: T-score is -2.5 or below.
== END | disposition home or self-care (01) ==
LOC: DXRAD 11:06
PROVIDERS: ATTEND Internal Medicine Hematology & Oncology
DX: C50.919 Malignant neoplasm of unspecified site of unspecified female breast (principal); M85.88 Other specified disorders of bone density and structure, other site; M81.0 Age-related osteoporosis without current pathological fracture
CPT/HCPCS: 77080

== ENCOUNTER → 2017-04-09 | Outpatient (CLI) | payer OTHER, MEDICARE ==
[2017-04-09 10:40] LABS: BASO % 2 % (0-3); EOS % 0 % (0-3); HEMATOCRIT 32.2 % (36.0-47.0); LYMPH # 0.4 x10^3/uL (1.0-4.8); LYMPH % 33 % (24-48); MEAN CORPUSCULAR HEMOGLOBIN 30 pg (25-35); MEAN CORPUSCULAR HGB CONC 34 g/dL (31-37); MEAN CORPUSCULAR VOLUME 87 fL (79-100); MONO # 0.2 x10^3/uL (0.0-1.1); MONO % 14 % (0-9); NEUT # 0.6 x10^3uL (1.8-7.7); NEUT % 51 % (31-73); PLATELET COUNT 194 x10^3/uL (140-400); RED BLOOD COUNT 3.69 x10^6/uL (3.50-5.40)
[2017-04-09 10:57] LABS: ALBUMIN 3.4 g/dL (3.4-5.0); ALBUMIN/GLOBULIN RATIO 0.9 (1.0-1.7); CALCIUM 8.7 mg/dL (8.5-10.1); CREATININE 0.7 mg/dL (0.6-1.0); GFR 98.7; POTASSIUM 3.6 mmol/L (3.5-5.1); TOTAL BILIRUBIN 0.3 mg/dL (0.2-1.0); TOTAL PROTEIN 7.2 g/dL (6.4-8.2)
[2017-04-09 11:01] LABS: WHITE BLOOD COUNT 1.3 x10^3/uL (4.0-11.0)
[2017-04-09 12:17] LABS: % BANDS 1 % (0-9); % BASOS 2 % (0-3); % LYMPHS 37 % (24-48); % MONOS 7 % (0-10); % SEGS 53 % (35-66); ANISOCYTOSIS SLIGHT; HYPOCHROMIA SLIGHT; PLT ESTIMATE ADEQUATE (ADEQUATE); POLYCHROMASIA SLIGHT
[2017-04-09 17:31] LABS: FREE T4 0.93 ng/dL (0.76-1.46); THYROID STIM HORMONE (TSH) 1.096 uIU/mL (0.358-3.740)
== END | disposition home or self-care (01) ==
LOC: LAB 10:18
PROVIDERS: ATTEND Internal Medicine Hematology & Oncology
DX: C50.919 Malignant neoplasm of unspecified site of unspecified female breast (principal); C79.51 Secondary malignant neoplasm of bone; R79.89 Other specified abnormal findings of blood chemistry; Z79.01 Long term (current) use of anticoagulants
CPT/HCPCS: 36415; 80053; 80061; 84439; 84443; 85007; 85025; 86300

== ENCOUNTER → 2017-05-01 | Outpatient (CLI) | payer OTHER, MEDICARE ==
[2017-05-01 12:10] LABS: BASO % 0 % (0-3); EOS % 1 % (0-3); HEMATOCRIT 32.9 % (36.0-47.0); HEMOGLOBIN 11.2 g/dL (12.0-15.5); LYMPH # 0.4 x10^3/uL (1.0-4.8); LYMPH % 29 % (24-48); MEAN CORPUSCULAR HEMOGLOBIN 30 pg (25-35); MEAN CORPUSCULAR HGB CONC 34 g/dL (31-37); MEAN CORPUSCULAR VOLUME 89 fL (79-100); MONO # 0.1 x10^3/uL (0.0-1.1); MONO % 8 % (0-9); NEUT # 0.9 x10^3uL (1.8-7.7); NEUT % 62 % (31-73); PLATELET COUNT 173 x10^3/uL (140-400); RED BLOOD COUNT 3.71 x10^6/uL (3.50-5.40); RED CELL DISTRIBUTION WIDTH 20.4 % (11.5-14.5)
[2017-05-01 12:21] LABS: WHITE BLOOD COUNT 1.4 x10^3/uL (4.0-11.0)
[2017-05-01 12:57] LABS: % BASOS 1 % (0-3); % LYMPHS 39 % (24-48); % MONOS 2 % (0-10); % SEGS 58 % (35-66)
[2017-05-01 12:59] LABS: PLT ESTIMATE ADEQUATE (ADEQUATE)
== END | disposition home or self-care (01) ==
LOC: LAB 11:11
PROVIDERS: ATTEND Internal Medicine Hematology & Oncology
DX: C50.919 Malignant neoplasm of unspecified site of unspecified female breast (principal)
CPT/HCPCS: 36415; 85007; 85025

== ENCOUNTER → 2017-05-08 | Outpatient (CLI) | payer OTHER, MEDICARE ==
[2017-05-08 13:49] LABS: BASO % 1 % (0-3); EOS % 1 % (0-3); HEMATOCRIT 30.1 % (36.0-47.0); HEMOGLOBIN 10.5 g/dL (12.0-15.5); LYMPH # 0.5 x10^3/uL (1.0-4.8); LYMPH % 30 % (24-48); MEAN CORPUSCULAR HEMOGLOBIN 31 pg (25-35); MEAN CORPUSCULAR HGB CONC 35 g/dL (31-37); MEAN CORPUSCULAR VOLUME 89 fL (79-100); MONO # 0.1 x10^3/uL (0.0-1.1); MONO % 5 % (0-9); NEUT % 63 % (31-73); PLATELET COUNT 89 x10^3/uL (140-400); RED BLOOD COUNT 3.37 x10^6/uL (3.50-5.40); RED CELL DISTRIBUTION WIDTH 20.6 % (11.5-14.5)
[2017-05-08 13:53] LABS: ALBUMIN 3.7 g/dL (3.4-5.0); CREATININE 0.8 mg/dL (0.6-1.0); GFR 84.6; TOTAL BILIRUBIN 0.3 mg/dL (0.2-1.0); TOTAL PROTEIN 7.3 g/dL (6.4-8.2)
[2017-05-08 13:58] LABS: WHITE BLOOD COUNT 1.5 x10^3/uL (4.0-11.0)
[2017-05-08 14:30] LABS: % BASOS 2 % (0-3); % EOS 1 % (0-5); % LYMPHS 32 % (24-48); % MONOS 6 % (0-10); % SEGS 59 % (35-66); ANISOCYTOSIS SLIGHT; PLT ESTIMATE DECREASED (ADEQUATE)
[2017-05-08 14:31] LABS: POLYCHROMASIA SLIGHT
[2017-05-09 14:00] LABS: THYROID STIM HORMONE (TSH) 2.204 uIU/mL (0.358-3.740)
== END | disposition home or self-care (01) ==
LOC: PMG 11:52
PROVIDERS: ATTEND Physician Assistant
DX: I10 Essential (primary) hypertension (principal); E11.9 Type 2 diabetes mellitus without complications; E78.5 Hyperlipidemia, unspecified; C50.919 Malignant neoplasm of unspecified site of unspecified female breast
CPT/HCPCS: 36415; 80053; 80061; 83036; 84439; 84443; 85007; 85025

== ENCOUNTER → 2017-10-30 | Outpatient (CLI) | payer OTHER, MEDICARE ==
[~2017-10-30] MED LIST changes: -LABE200T2 PO; +LABE200T4 PO; -LOSA50TA6 PO; +LOSA50TA7 PO; -METF10002 PO; +METF10007 PO
--- NOTE | 2017-10-30 13:13 | RAD ---
DATE: 10/30/2017 EXAM: MAMMO HEATH SCREENING BILATERAL HISTORY: Remote left breast cancer, metastatic disease COMPARISON: 06/04/2016 This study was interpreted with the benefit of Computerized Aided Detection (CAD). Breast Density: HETERO The breast parenchyma is heterogenously dense, which could reduce sensitivity of mammography. Breast parenchyma level C. FINDINGS: 2-D and 3-D tomosynthesis imaging was performed in CC and MLO projections. There is skin thickening on the left and unchanged architectural distortion in the axillary region on the oblique view compatible with post therapeutic change. No breast mass is evident. Numerous microcalcifications in both breasts are unchanged. No suspicious microcalcifications have developed. IMPRESSION: 1. Post therapeutic changes in the left breast. 2. No new breast abnormality is detected. BI-RADS CATEGORY: 2 BENIGN FINDING(S) RECOMMENDED FOLLOW-UP: 12M 12 MONTH FOLLOW-UP PQRS compliance statement: Patient information was entered into a reminder system with a target due date for the next mammogram. Mammography is a sensitive method for finding small breast cancers, but it does not detect them all and is not a substitute for careful clinical examination. A negative mammogram does not negate a clinically suspicious finding and should not result in delay in biopsying a clinically suspicious abnormality. "Our facility is accredited by the [employer] Mammography Program."
== END | disposition home or self-care (01) ==
LOC: MAMMO 10:38
PROVIDERS: ATTEND Physician Assistant
DX: Z12.31 Encounter for screening mammogram for malignant neoplasm of breast (principal); N64.89 Other specified disorders of breast; I10 Essential (primary) hypertension; E78.5 Hyperlipidemia, unspecified; E11.9 Type 2 diabetes mellitus without complications; J44.9 Chronic obstructive pulmonary disease, unspecified; Z87.891 Personal history of nicotine dependence; Z85.3 Personal history of malignant neoplasm of breast; Z92.3 Personal history of irradiation
CPT/HCPCS: 77063; 77067

== ENCOUNTER → 2017-11-18 | Outpatient (CLI) | payer OTHER, MEDICARE ==
[2017-11-18 11:49] LABS: BASO % 2 % (0-3); EOS % 1 % (0-3); HEMATOCRIT 31.3 % (36.0-47.0); HEMOGLOBIN 10.8 g/dL (12.0-15.5); LYMPH # 0.4 x10^3/uL (1.0-4.8); LYMPH % 24 % (24-48); MEAN CORPUSCULAR HEMOGLOBIN 34 pg (25-35); MEAN CORPUSCULAR HGB CONC 35 g/dL (31-37); MEAN CORPUSCULAR VOLUME 97 fL (79-100); MONO # 0.1 x10^3/uL (0.0-1.1); MONO % 6 % (0-9); NEUT # 1.1 x10^3uL (1.8-7.7); NEUT % 68 % (31-73); PLATELET COUNT 213 x10^3/uL (140-400); RED BLOOD COUNT 3.21 x10^6/uL (3.50-5.40); RED CELL DISTRIBUTION WIDTH 19.6 % (11.5-14.5)
[2017-11-18 11:58] LABS: ALBUMIN 3.5 g/dL (3.4-5.0); C REACTIVE PROTEIN 1.5 mg/L (0-3.3); CALCIUM 9.1 mg/dL (8.5-10.1); CREATININE 0.8 mg/dL (0.6-1.0); GFR 84.6; POTASSIUM 3.9 mmol/L (3.5-5.1); TOTAL BILIRUBIN 0.4 mg/dL (0.2-1.0); TOTAL PROTEIN 6.9 g/dL (6.4-8.2)
[2017-11-18 12:05] LABS: WHITE BLOOD COUNT 1.6 x10^3/uL (4.0-11.0)
[2017-11-18 12:24] LABS: % BANDS 3 % (0-9); % BASOS 1 % (0-3); % EOS 1 % (0-5); % LYMPHS 23 % (24-48); % MONOS 6 % (0-10); % SEGS 66 % (35-66); PLT ESTIMATE ADEQUATE (ADEQUATE)
[2017-11-18 12:27] LABS: OVALOCYTES OCC; POLYCHROMASIA PRESENT
[2017-11-18 12:28] LABS: ANISOCYTOSIS PRESENT
[2017-11-18 14:08] LABS: FREE T4 1.03 ng/dL (0.76-1.46); THYROID STIM HORMONE (TSH) 1.339 uIU/mL (0.358-3.740)
== END | disposition home or self-care (01) ==
LOC: LAB 11:13
PROVIDERS: ATTEND Physician Assistant
DX: C50.912 Malignant neoplasm of unspecified site of left female breast (principal); I10 Essential (primary) hypertension; E78.5 Hyperlipidemia, unspecified; C79.51 Secondary malignant neoplasm of bone
CPT/HCPCS: 36415; 80053; 80061; 84439; 84443; 85007; 85025; 86140

== ENCOUNTER → 2018-01-13 | Outpatient (CLI) | payer OTHER, MEDICARE ==
[~2018-01-13] MED LIST changes: +HYDR-3165 PO; -HYDR-971 PO; -LOSA50TA7 PO; +LOSA50TA86 PO
[2018-01-13 11:22] LABS: BASO % 1 % (0-3); EOS % 1 % (0-3); HEMATOCRIT 33.1 % (36.0-47.0); HEMOGLOBIN 11.4 g/dL (12.0-15.5); LYMPH # 0.4 x10^3/uL (1.0-4.8); LYMPH % 23 % (24-48); MEAN CORPUSCULAR HEMOGLOBIN 34 pg (25-35); MEAN CORPUSCULAR HGB CONC 34 g/dL (31-37); MEAN CORPUSCULAR VOLUME 99 fL (79-100); MONO # 0.2 x10^3/uL (0.0-1.1); MONO % 11 % (0-9); NEUT # 1.1 x10^3uL (1.8-7.7); NEUT % 64 % (31-73); PLATELET COUNT 147 x10^3/uL (140-400); RED BLOOD COUNT 3.36 x10^6/uL (3.50-5.40); RED CELL DISTRIBUTION WIDTH 16.8 % (11.5-14.5)
[2018-01-13 11:56] LABS: WHITE BLOOD COUNT 1.7 x10^3/uL (4.0-11.0)
[2018-01-13 12:34] LABS: % BASOS 2 % (0-3); % EOS 1 % (0-5); % LYMPHS 23 % (24-48); % MONOS 8 % (0-10); % SEGS 65 % (35-66); PLATELET CLUMP PRESENT; PLT ESTIMATE ADEQUATE (ADEQUATE); POLYCHROMASIA SLIGHT
[2018-01-13 12:35] LABS: SCHISTOCYTES OCC
== END | disposition home or self-care (01) ==
LOC: LAB 10:48
PROVIDERS: ATTEND Nurse Practitioner Adult Health
DX: C50.912 Malignant neoplasm of unspecified site of left female breast (principal)
CPT/HCPCS: 36415; 85007; 85025

== ENCOUNTER → 2018-02-04 | Outpatient (CLI) | payer OTHER, MEDICARE ==
[~2018-02-04] MED LIST changes: +ALBU2.5V8 IH; -ALBU8.5H8 IH
--- NOTE | 2018-02-04 13:38 | RAD ---
Chest radiograph 02/04/2018 12:46 PM INDICATION: Shortness of air COMPARISON: February 19, 2017 TECHNIQUE: Frontal and lateral views of the chest are provided. FINDINGS: The cardiomediastinal silhouette is within normal limits. There are no pleural effusions. There is no pulmonary vascular congestion. There is no pneumothorax. The lungs are clear. 13 mm calcified granulomas identified in the right midlung. Calcified right hilar lymphadenopathy is identified. Diffuse sclerosis of a mid to lower lumbar vertebral body is noted. IMPRESSION: No acute cardiopulmonary process. Diffuse sclerosis of a mid to lower lumbar vertebral body is noted. Further evaluation with a dedicated lumbar spine radiograph may be of benefit. Electronically signed by: Salima Kenny MD (02/04/2018 1:35 PM) [id number]
== END | disposition home or self-care (01) ==
LOC: PMG 12:20
PROVIDERS: ATTEND Physician Assistant
DX: C50.919 Malignant neoplasm of unspecified site of unspecified female breast (principal); R59.1 Generalized enlarged lymph nodes; Z87.891 Personal history of nicotine dependence
CPT/HCPCS: 71046

== ENCOUNTER → 2018-02-09 | Outpatient (CLI) | payer OTHER, MEDICARE ==
--- NOTE | 2018-02-09 09:13 | RAD ---
EXAM: Right lower extremity venous Doppler sonogram. HISTORY: Pain and swelling. TECHNIQUE: Hollingsworth scale and color Doppler sonographic evaluation of the right lower extremity veins with spectral waveform analysis was performed. FINDINGS: There is normal color flow, normal compressibility and there are normal spectral waveforms in the common femoral, superficial femoral, popliteal, posterior tibial and greater saphenous veins. There is a 2.8 cm right popliteal cyst. IMPRESSION: 1. No Doppler evidence of lower extremity deep venous thrombosis. 2. 2.8 cm right Coppola's cyst. Electronically signed by: Laury Huang MD (02/09/2018 9:09 AM) [place] [id number]
== END | disposition home or self-care (01) ==
LOC: US 07:59
DX: M71.21 Synovial cyst of popliteal space [Baker], right knee (principal); M79.89 Other specified soft tissue disorders
CPT/HCPCS: 93971

== ENCOUNTER → 2018-03-03 | Outpatient (CLI) | payer OTHER, MEDICARE ==
[~2018-03-03] MED LIST changes: +METR-84 PO
--- NOTE | 2018-03-03 12:11 | CARD ---
MR#: [id number] Date of Study: 03/03/2018 Ordering Physician: JUAN ANTONIO HAQUE, Referring Physician: JUAN ANTONIO HAQUE Tech: Tiffany Woodard RDCS APPROVED REPORT EXAM: Two-dimensional and M-mode echocardiogram with Doppler and color Doppler. Other Information Quality : Good INDICATION Hypertension/HCVD 2D DIMENSIONS RVDd2.7 (2.9-3.5cm)Left Atrium(2D)3.3 (1.6-4.0cm) IVSd0.7 (0.7-1.1cm)Aortic Root(2D)2.5 (2.0-3.7cm) LVDd4.4 (3.9-5.9cm)LVOT Diameter2.0 (1.8-2.4cm) PWd0.7 (0.7-1.1cm)LVDs2.5 (2.5-4.0cm) FS (%) 30.0 %SV65.7 ml LVEF(%)60.0 (>50%) Aortic Valve AoV Peak Michael.128.1cm/sAoV VTI24.3cm AO Peak GR.6.6mmHgLVOT Peak Michael.112.1cm/s LVOT VTI 24.87cmAO Mean GR.4mmHg ANDREA (VMAX)2.61ej1PYC (VTI)3.06cm2 Mitral Valve MV E Rmlggpnl02.6cm/sMV DECEL [id number] MV A Vwbwifbf459.0cm/sE/A Ratio0.6 Tricuspid Valve TR P. Ixewvukm827qe/sRAP WWMTJHQH1zdIz TR Peak Gr.10seOwKLSP37seEb Pulmonary Vein S1 Iiolquwr19.9cm/sD2 Skjhobnh12.9cm/s LEFT VENTRICLE The left ventricle is normal size. There is normal left ventricular wall thickness. The left ventricu lar systolic function is normal. The Ejection Fraction is 60-65%. There is normal LV segmental wall m otion. Transmitral Doppler flow pattern is Grade I-abnormal relaxation pattern. RIGHT VENTRICLE The right ventricle is normal size. The right ventricular systolic function is normal. ATRIA The left atrium size is normal. The right atrium size is normal. The atrial septum is aneurysmal. The re is a questionable, small PFO noted on Doppler imaging, agitated contrast saline was not performed on this study. AORTIC VALVE The aortic valve is normal in structure and function. Doppler and Color Flow revealed no significant aortic regurgitation. There is no significant aortic valvular stenosis. MITRAL VALVE The mitral valve is calcified but opens well. Mitral annular calcification is mild. There is no evide nce of mitral valve prolapse. There is no mitral valve stenosis. Doppler and Color-flow revealed trac e mitral regurgitation. TRICUSPID VALVE The tricuspid valve is normal in structure and function. Doppler and Color Flow revealed trace tricus pid regurgitation. The PA pressure was estimated at 24 mmHg. There is no tricuspid valve stenosis. PULMONIC VALVE The pulmonary valve is normal in structure and function. Doppler and Color Flow revealed trace pulmon ic valvular regurgitation. There is no pulmonic valvular stenosis. GREAT VESSELS The aortic root is normal in size. The ascending aorta is normal in size. The IVC is normal in size a nd collapses >50% with inspiration. PERICARDIAL EFFUSION There is no evidence of significant pericardial effusion. Critical Notification Critical Value: No <Conclusion> The left ventricular systolic function is normal. The Ejection Fraction is 60-65%. There is normal LV segmental wall motion. Transmitral Doppler flow pattern is Grade I-abnormal relaxation pattern. Trace mitral regurgitation. Trace tricuspid regurgitation. The PA pressure was estimated at 24 mmHg. There is no evidence of significant pericardial effusion. Signed by : Juan Antonio Haque, Electronically Approved : 03/03/2018 12:09:45
== END | disposition home or self-care (01) ==
LOC: ECHO 10:52
PROVIDERS: ATTEND Internal Medicine Cardiovascular Disease
DX: I10 Essential (primary) hypertension (principal); R00.8 Other abnormalities of heart beat
CPT/HCPCS: 93306

== ENCOUNTER 2018-03-05 04:16 | Emergency (ER) | payer OTHER, MEDICARE ==
[~2018-03-05] VITALS: Ht 160 cm; Wt 52.8 kg
[~2018-03-05 04:16] MED LIST changes: -METR-84 PO
[2018-03-05 04:24] VITALS: BP 150/67
--- NOTE | 2018-03-05 04:45 | PHYS DOC ---
Past History Past Medical History: Diabetes, Hypertension Past Surgical History: Other Smoking: Non-smoker Alcohol Use: None Drug Use: None Adult General Chief Complaint Chief Complaint: VAGINAL BLEEDING HPI HPI 78-year-old female presents with single episode of vaginal bleeding. The patient got up around 3:30 AM to the restroom she noticed about a 2 inch strip of blood on her underwear. The patient has been postmenopausal for many years. She denies any vaginal or abdominal pain. She denies dysuria, but admits to increased urinary frequency. The patient has had diarrhea yesterday, but did not notice any blood in the stool. She denies shortness of breath, dizziness, chest pain, or abdominal pain. She denies fever or chills. Review of Systems Review of Systems Constitutional: Denies fever or chills [] Eyes: Denies change in visual acuity, redness, or eye pain [] HENT: Denies nasal congestion or sore throat [] Respiratory: Denies cough or shortness of breath [] Cardiovascular: No additional information not addressed in HPI [] GI: Denies abdominal pain, nausea, vomiting, bloody stools or diarrhea [] : Vaginal bleeding, increased urinary frequency[] Musculoskeletal: Denies back pain or joint pain [] Integument: Denies rash or skin lesions [] Neurologic: Denies headache, focal weakness or sensory changes [] Endocrine: Denies polyuria or polydipsia [] All other systems were reviewed and found to be within normal limits, except as documented in this note. Current Medications Current Medications Current Medications Medications (Trade) Dose Ordered Sig/Julio Start Time Stop Time Status Last Admin Dose Admin Sodium Chloride 1,000 ml @ 1,000 mls/hr 1X ONCE 03/05/18 04:45 03/05/18 05:44 UNV Allergies Allergies Allergies Coded Allergies Type Severity Reaction Last Updated Verified No Known Drug Allergies 03/24/14 No Physical Exam Physical Exam Constitutional: Well developed, well nourished, no acute distress, non-toxic appearance. [] HENT: Normocephalic, atraumatic, bilateral external ears normal, oropharynx moist, no oral exudates, nose normal. [] Eyes: PERRLA, EOMI, conjunctiva normal, no discharge. [] Neck: Normal range of motion, no tenderness, supple, no stridor. [] Cardiovascular:Heart rate regular rhythm, no murmur [] Lungs & Thorax: Bilateral breath sounds clear to auscultation [] Abdomen: Bowel sounds normal, soft, no tenderness, no masses, no pulsatile masses. [] Skin: Warm, dry, no erythema, no rash. [] Back: No tenderness, no CVA tenderness. [] Extremities: No tenderness, no cyanosis, no clubbing, ROM intact, no edema. [] Neurologic: Alert and oriented X 3, normal motor function, normal sensory function, no focal deficits noted. [] Psychologic: Affect normal, judgement normal, mood normal. : Normal external exam, no obvious source of bleeding in the vagina. There was a small area of irritated tissue at about the 2 o'clock position. Moderate white discharge. No obvious rectal bleeding. [] Current Patient Data Vital Signs Vital Signs Date Time Temp Pulse Resp B/P (MAP) Pulse Ox O2 Delivery O2 Flow Rate FiO2 03/05/18 04:24 98.3 94 18 99 Room Air EKG EKG [] Radiology/Procedures Radiology/Procedures [] Course & Med Decision Making Course & Med Decision Making Pertinent Labs and Imaging studies reviewed. (See chart for details) Patient's labs significant for mild anemia. Urinalysis is negative for infection. The patient's wet prep was negative for clue cells, but the microbiology stated that the floor was abnormal suggesting bacterial vaginosis. I will treat her with metronidazole for 7 days. [] Dragon Disclaimer Dragon Disclaimer This electronic medical record was generated, in whole or in part, using a voice recognition dictation system. Departure Departure: Impression: Primary Impression: Vaginal bleeding, abnormal Additional Impression: Bacterial vaginosis Disposition: 01 HOME, SELF-CARE Condition: STABLE Referrals: KANCHAN MG (PCP) Additional Instructions: If you have additional bleeding that you believe is coming from the vagina, you should contact her PCP about a possible CIRCULATION DIRECTOR referral for further evaluation. If you have large amounts of bleeding, please return to emergency room. Scripts Metronidazole (METRONIDAZOLE) 500 Mg Tablet 1 TAB PO BID for infection, #14 TAB Prov: SHERIDAN OH DO 03/05/18 Problem Qualifiers SHERIDAN OH DO Mar 05, 2018 04:45
[2018-03-05] MEDS ORDERED: IV NORMAL SALINE 1,000ML 1,000 ML IV ONE (05:00)
[2018-03-05 05:15] LABS: BASO % 1 % (0-3); EOS # 0.1 x10^3/uL (0.0-0.7); EOS % 3 % (0-3); HEMATOCRIT 31.3 % (36.0-47.0); HEMOGLOBIN 10.4 g/dL (12.0-15.5); LYMPH # 0.5 x10^3/uL (1.0-4.8); LYMPH % 16 % (24-48); MEAN CORPUSCULAR HEMOGLOBIN 32 pg (25-35); MEAN CORPUSCULAR HGB CONC 33 g/dL (31-37); MEAN CORPUSCULAR VOLUME 96 fL (79-100); MONO # 0.6 x10^3/uL (0.0-1.1); MONO % 18 % (0-9); NEUT % 62 % (31-73); PLATELET COUNT 250 x10^3/uL (140-400); RED BLOOD COUNT 3.26 x10^6/uL (3.50-5.40); RED CELL DISTRIBUTION WIDTH 14.9 % (11.5-14.5); WHITE BLOOD COUNT 3.3 x10^3/uL (4.0-11.0)
[2018-03-05 05:19] LABS: BACTERIA,URINE 0 /HPF (0-FEW); BILIRUBIN,URINE NEG (NEG); CLARITY,URINE CLEAR; COLOR,URINE YELLOW; GLUCOSE,URINE NEG (NEG); NITRITE,URINE NEG (NEG); RBC,URINE 0 /HPF (0-2); SQUAMOUS EPITHELIAL CELL,UR OCC /LPF; UROBILINOGEN,URINE 1 mg/dL (0.2 mg/dL)
[2018-03-05 05:28] LABS: ALBUMIN 3.2 g/dL (3.4-5.0); ALBUMIN/GLOBULIN RATIO 0.9 (1.0-1.7); CALCIUM 9.4 mg/dL (8.5-10.1); CREATININE 0.7 mg/dL (0.6-1.0); GFR 98.4; POTASSIUM 3.7 mmol/L (3.5-5.1); TOTAL BILIRUBIN 0.2 mg/dL (0.2-1.0); TOTAL PROTEIN 6.9 g/dL (6.4-8.2)
[2018-03-05] MEDS ORDERED: METR-84 PO (05:47)
== END 2018-03-05 06:00 | disposition home or self-care (01) ==
LOC: ER 04:16
DX: N76.0 Acute vaginitis (principal); N93.8 Other specified abnormal uterine and vaginal bleeding; B96.89 Other specified bacterial agents as the cause of diseases classified elsewhere; R19.7 Diarrhea, unspecified; E11.9 Type 2 diabetes mellitus without complications; I10 Essential (primary) hypertension
CPT/HCPCS: 36415; 80053; 81001; 85025; 87086; 96360; 99283; Q0111; 96361; J7030

== ENCOUNTER 2018-05-03 15:32 | Inpatient (IN) | payer OTHER, MEDICARE ==
[~2018-05-03] VITALS: Ht 160 cm; Wt 51.3 kg
[~2018-05-03 15:32] MED LIST changes: +METR-34 PO
--- NOTE | 2018-05-03 16:11 | PHYS DOC ---
Past History Past Medical History: Diabetes, Hypertension Past Surgical History: Other Smoking: Non-smoker Alcohol Use: None Drug Use: None Adult General Chief Complaint Chief Complaint: FOOT INJURY PAIN HPI HPI 78-year-old female presents with increased lower extremity swelling. Patient states that her right ankle is much more swollen than normal. She also feels that her left ankle is more swollen than normal but less than the right. It is not especially painful. She just noticed it today. She denies any increased sodium intake. She is not on any blood thinners. She has no history of blood clots. She had this ankle swell up 3 months ago and ultrasound was negative. Patient further admits to some mild shortness of breath. She states that she had used her breathing treatment today. She denies fever or chills. Review of Systems Review of Systems Constitutional: Denies fever or chills [] Eyes: Denies change in visual acuity, redness, or eye pain [] HENT: Denies nasal congestion or sore throat [] Respiratory: Denies cough or shortness of breath [] Cardiovascular: No additional information not addressed in HPI [] GI: Denies abdominal pain, nausea, vomiting, bloody stools or diarrhea [] : Denies dysuria or hematuria [] Musculoskeletal: lower extremity swelling [] Integument: Denies rash or skin lesions [] Neurologic: Denies headache, focal weakness or sensory changes [] Endocrine: Denies polyuria or polydipsia [] All other systems were reviewed and found to be within normal limits, except as documented in this note. Allergies Allergies Allergies Coded Allergies Type Severity Reaction Last Updated Verified No Known Drug Allergies 03/24/14 No Physical Exam Physical Exam Constitutional: Well developed, well nourished, no acute distress, non-toxic appearance. [] HENT: Normocephalic, atraumatic, bilateral external ears normal, oropharynx moist, no oral exudates, nose normal. [] Eyes: PERRLA, EOMI, conjunctiva normal, no discharge. [] Neck: Normal range of motion, no tenderness, supple, no stridor. [] Cardiovascular:Heart rate regular rhythm, no murmur [] Lungs & Thorax: Bilateral breath sounds clear to auscultation [] Abdomen: Bowel sounds normal, soft, no tenderness, no masses, no pulsatile masses. [] Skin: Warm, dry, no erythema, no rash. [] Back: No tenderness, no CVA tenderness. [] Extremities: No tenderness, no cyanosis, no clubbing, ROM intact. 3+ pitting edema of the right foot, ankle, and lower leg below the knee. 2+ pitting edema left ankle to mid calf. [] Neurologic: Alert and oriented X 3, normal motor function, normal sensory function, no focal deficits noted. [] Psychologic: Affect normal, judgement normal, mood normal. [] EKG EKG Sinus rhythm, rate 100, normal axis, no ST elevations or depressions.[] Radiology/Procedures Radiology/Procedures [] Impressions: CHEST AP ONLY Clinical Indication: left lower leg swelling Comparison: 02/04/2018 two-view chest x-ray exam. Findings: Portable frontal view chest was obtained. Calcified right hilar lymph node noted. Calcified granuloma involves the right mid lung region. The cardiomediastinal silhouette is normal. Minimal bibasilar discoid atelectasis is present.. There is no pneumothorax. Blunting of costophrenic angles noted.. Old left fourth rib fracture posteriorly is evident.. IMPRESSION: Small pleural effusions. Electronically signed by: Jose Manuel Sousa MD (05/03/2018 4:15 PM) [facility] DICTATED AND SIGNED BY: JOSE MANUEL SOUSA MD DATE: 05/03/18 0120 CC: SHERIDAN OH DO; KANCHAN MG PA Course & Med Decision Making Course & Med Decision Making Pertinent Labs and Imaging studies reviewed. (See chart for details) Patient's labs are significant for anemia with hemoglobin of 9.5 which is 1g lower than her previous of 10.4. She also has an elevated creatinine of 1.3 versus her normal 0.7. Her chest x-ray does show small pleural effusions. I discussed patient with Dr. Vazquez and he has agreed to admit the patient. He has requested that we do a right lower extremity ultrasound and a 24-hour urine. Her UA is pending. [] Dragon Disclaimer Dragon Disclaimer This electronic medical record was generated, in whole or in part, using a voice recognition dictation system. Departure Departure: Impression: Primary Impression: Elevated serum creatinine Additional Impressions: Pleural effusion Bilateral lower extremity edema Anemia Disposition: ADMITTED INPATIENT Admitting Physician: Chase Vazquez Condition: STABLE Referrals: KANCHAN MG (PCP) Problem Qualifiers Additional Impressions: Anemia Anemia type: unspecified type Qualified Codes: D64.9 - Anemia, unspecified SHERIDAN OH DO May 03, 2018 16:11
--- NOTE | 2018-05-03 16:18 | RAD ---
CHEST AP ONLY Clinical Indication: left lower leg swelling Comparison: 02/04/2018 two-view chest x-ray exam. Findings: Portable frontal view chest was obtained. Calcified right hilar lymph node noted. Calcified granuloma involves the right mid lung region. The cardiomediastinal silhouette is normal. Minimal bibasilar discoid atelectasis is present.. There is no pneumothorax. Blunting of costophrenic angles noted.. Old left fourth rib fracture posteriorly is evident.. IMPRESSION: Small pleural effusions. Electronically signed by: Jose Manuel Hannah MD (05/03/2018 4:15 PM) [facility]
[2018-05-03 16:26] LABS: BASO % 0 % (0-3); EOS % 1 % (0-3); HEMATOCRIT 28.8 % (36.0-47.0); HEMOGLOBIN 9.5 g/dL (12.0-15.5); LYMPH # 0.3 x10^3/uL (1.0-4.8); LYMPH % 10 % (24-48); MEAN CORPUSCULAR HEMOGLOBIN 28 pg (25-35); MEAN CORPUSCULAR HGB CONC 33 g/dL (31-37); MEAN CORPUSCULAR VOLUME 84 fL (79-100); MONO # 0.4 x10^3/uL (0.0-1.1); MONO % 14 % (0-9); NEUT # 2.4 x10^3uL (1.8-7.7); NEUT % 75 % (31-73); PLATELET COUNT 189 x10^3/uL (140-400); RED BLOOD COUNT 3.41 x10^6/uL (3.50-5.40); RED CELL DISTRIBUTION WIDTH 17.8 % (11.5-14.5); WHITE BLOOD COUNT 3.2 x10^3/uL (4.0-11.0)
[2018-05-03 16:46] LABS: ALBUMIN 2.8 g/dL (3.4-5.0); ALBUMIN/GLOBULIN RATIO 0.8 (1.0-1.7); CALCIUM 8.9 mg/dL (8.5-10.1); CREATININE 1.3 mg/dL (0.6-1.0); GFR 48.2; POTASSIUM 4.1 mmol/L (3.5-5.1); TOTAL BILIRUBIN 0.3 mg/dL (0.2-1.0); TOTAL PROTEIN 6.4 g/dL (6.4-8.2)
[2018-05-03] MEDS: IV NORMAL SALINE 500ML 500 ML IV ONE ×2 (17:06→17:15)
[2018-05-03 17:35] LABS: BILIRUBIN,URINE NEG (NEG); CLARITY,URINE CLOUDY; COLOR,URINE YELLOW; GLUCOSE,URINE NEG (NEG)
[2018-05-03 17:36] LABS: NITRITE,URINE NEG (NEG); UROBILINOGEN,URINE 0.2 mg/dL (0.2 mg/dL)
[2018-05-03 17:37] LABS: BACTERIA,URINE FEW /HPF (0-FEW); HYALINE CASTS, URINE MOD /HPF; SQUAMOUS EPITHELIAL CELL,UR FEW /LPF
--- NOTE | 2018-05-03 17:50 | NUR ---
Admit to room 107 via cart accompanied by staff. Alert and oriented, vs stable, no c/o pain at this time. Lungs with wheezed kathi throughout, o2 sat 95%. Right leg edema noted on foot and up to knee +2. Started 24 hr urine and instructed pt on saving all urine. Oriented to room and explained all procedures.
[2018-05-03 18:15] VITALS: BP 139/55
[2018-05-03] MEDS ORDERED: DEXTROSE 50% 25 GM / 50ML DISP.SYRIN. IV PRN (19:15)
[2018-05-03] MEDS ORDERED: METF10007 PO (19:18)
[2018-05-03 19:40] VITALS: BP 132/65
--- NOTE | 2018-05-03 20:19 | RAD ---
RIGHT LOWER EXTREMITY ULTRASOUND WITH DOPPLER 05/03/2018 7:37 PM Clinical Information: Right leg swelling. Comparison: None. Technique: Multiple grayscale, color Doppler, and spectral Doppler sonographic images of the lower extremity venous structures were obtained. Findings: The right common femoral, femoral, and popliteal veins exhibit normal compression, respiratory phasicity, and augmentation. No intraluminal thrombi are identified. Color Doppler flow is demonstrated in the right peroneal veins. 2.1 x 0.8 x 1.8 cm popliteal cyst is identified. Impression: 1. No evidence of deep venous thrombosis. 2. There is a 2.1 cm popliteal cyst. Electronically signed by: Salima Kenny MD (05/03/2018 8:16 PM) [facility]
[2018-05-03] MEDS ORDERED: ATOR20TA58 PO (20:37)
[2018-05-03] MEDS ORDERED: [UNRECOGNIZED DRUG - CODE] PO (20:40)
[2018-05-03] MEDS ORDERED: EXEM25TA2 PO (20:41)
[2018-05-03] MEDS ORDERED: LINA5TAB4 PO (20:43)
[2018-05-03] MEDS ORDERED: CALC-157 PO (20:45)
[2018-05-03] MEDS ORDERED: NON FORMULARY ITEM (Metformin Hcl 1 TAB) PO SCH (21:00)
[2018-05-03] MEDS ORDERED: ALBUTEROL SULFATE 2.5 MG/3 ML NEBU. IH PRN (21:00)
[2018-05-03] MEDS ORDERED: LABETALOL HCL 200 MG PO SCH (21:00)
[2018-05-03] MEDS: ATORVASTATIN CALCIUM 20 MG TABLET PO SCH (21:05)
[2018-05-03 23:28] VITALS: BP 129/62
[2018-05-04 03:10] VITALS: BP 142/62
[2018-05-04 05:52] LABS: BASO % 0 % (0-3); EOS % 2 % (0-3); HEMATOCRIT 24.9 % (36.0-47.0); HEMOGLOBIN 8.2 g/dL (12.0-15.5); LYMPH # 0.3 x10^3/uL (1.0-4.8); LYMPH % 10 % (24-48); MEAN CORPUSCULAR HEMOGLOBIN 28 pg (25-35); MEAN CORPUSCULAR HGB CONC 33 g/dL (31-37); MEAN CORPUSCULAR VOLUME 84 fL (79-100); MONO # 0.5 x10^3/uL (0.0-1.1); MONO % 20 % (0-9); NEUT # 1.8 x10^3uL (1.8-7.7); NEUT % 68 % (31-73); PLATELET COUNT 160 x10^3/uL (140-400); RED BLOOD COUNT 2.95 x10^6/uL (3.50-5.40); RED CELL DISTRIBUTION WIDTH 17.5 % (11.5-14.5); WHITE BLOOD COUNT 2.7 x10^3/uL (4.0-11.0)
[2018-05-04 06:06] LABS: ALBUMIN 2.3 g/dL (3.4-5.0); ALBUMIN/GLOBULIN RATIO 0.6 (1.0-1.7); CALCIUM 8.4 mg/dL (8.5-10.1); CREATININE 0.9 mg/dL (0.6-1.0); GFR 73.7; TOTAL BILIRUBIN 0.2 mg/dL (0.2-1.0); TOTAL PROTEIN 5.9 g/dL (6.4-8.2)
[2018-05-04 06:14] VITALS: BP 138/64
[2018-05-04] MEDS ORDERED: metFORMIN 500 MG TABLET PO SCH (08:00)
[2018-05-04] MEDS: LABETALOL HCL 200 MG TABLET PO SCH ×2 (08:11→20:07)
[2018-05-04] MEDS: MONTELUKAST 10 MG TABLET. PO SCH (08:12)
[2018-05-04] MEDS: LINAGLIPTIN 5 MG TABLET PO SCH (08:12)
[2018-05-04] MEDS: CHOLECALCIFEROL (VITAMIN D3) 1,000 UNIT TABLET PO SCH (08:12)
[2018-05-04] MEDS: CALCIUM CARB/VIT D3 500/200 TABLET PO SCH (08:12)
[2018-05-04] MEDS: EVEROLIMUS PO SCH (08:56)
[2018-05-04] MEDS: EXEMESTANE 25 MG TABLET PO SCH (08:59)
[2018-05-04] MEDS ORDERED: LOSARTAN 50 MG TABLET. PO SCH (09:00)
[2018-05-04 10:31] VITALS: BP 132/60
[2018-05-04] MEDS ORDERED: IOHEXOL 240 MG/ML 50ML VIAL. ONE (12:47)
[2018-05-04] MEDS ORDERED: CONTRAST GIVEN MC PRN (13:00)
[2018-05-04] MEDS ORDERED: IOHEXOL 300 MG/ML 75 ML VIAL. IV ONE (13:20)
[2018-05-04] MEDS: LOPERAMIDE 2 MG CAPSULE PO PRN ×3 (13:43→18:41)
[2018-05-04 14:11] VITALS: BP 159/64
--- NOTE | 2018-05-04 14:14 | HP ---
ADMIT DATE: 05/03/2018 HISTORY OF PRESENT ILLNESS: The patient is a 78-year-old -[place] female patient who came to the Emergency Room complaining of pain and swelling in her right lower extremity. She stated that her right ankle is much more swollen than normal. She also feels that her left ankle is also more swollen than normal, but less on the right. It is not especially painful. She just noticed it today. She has never had any blood clots before. There is no fall or trauma. She has an ultrasound done about 3 months ago, which shows negative for DVT. She did complain of shortness of breath, has been using her breathing treatments more often, but denied any chest pain, denied any orthopnea or paroxysmal nocturnal dyspnea. Denied any cough, phlegm, or hemoptysis. She was extensively investigated in the Emergency Room, found to have leukopenia and normochromic normocytic anemia. Her chemistry showed that she has severe protein calorie malnutrition with serum albumin of only 2.3. Her urinalysis showed that she has proteinuria. Given the swelling was more on the right side, we did order venous Doppler ultrasound of the right lower extremity, which basically showed that the right common femoral, femoral and popliteal veins exhibit normal compression, respiratory phasicity and augmentation. No intraluminal thrombi identified. Color Doppler flow is demonstrated in the right peroneal veins. She was found to have 2.1 x 0.8 x 1.2 cm ____ identified. The patient was admitted for further evaluation and treatment. PAST MEDICAL HISTORY: Significant for breast cancer that was diagnosed 17 years ago for which she underwent lumpectomy and radiation therapy, apparently has 1999. In 2017, she presented to the Emergency Room of [facility] with back pain, was diagnosed with metastatic breast cancer. She underwent left axillary lymph node twice, underwent resection of the sentinel lymph nodes and in 2018 she received treatment with radiation twice and was followed by Dr. Gil and has been on oral chemotherapy in the form of Afinitor as well as exemestane. Her other medical problems include bronchial asthma, hypertension, hyperlipidemia, type 2 diabetes, and thyroid nodule. PAST SURGICAL HISTORY: Significant for bilateral cataract extraction, tonsillectomy, left-sided lumpectomy and lymph node resection and also thyroid nodule resection. ALLERGIES: She has no known drug allergies. MEDICATIONS: She is currently on following medications: She is on Afinitor 2.5 mg daily, exemestane 25 mg once a day, albuterol sulfate for ProAir 2 puffs every 6 hours, atorvastatin calcium 20 mg at bedtime, labetalol 200 mg twice a day, diltiazem 240 mg daily, losartan potassium 50 mg daily, calcium carbonate with vitamin D one tablet once a day, Singulair 10 mg at bedtime, metformin 1000 mg p.o. b.i.d.,, ____ 5 mg once a day, and cholecalciferol 2000 international unit once a day. FAMILY HISTORY: She has one brother still alive and has prostate cancer. Two brothers are , one of prostate cancer and the other because of complication of diabetes. Her father at age of 79 because of prostate cancer. Mother at age of 44 because of stomach cancer. SOCIAL HISTORY: She is single. Quit smoking and drinking alcohol 20 years ago. She has been working at [employer] and quit working about 2 years ago. REVIEW OF SYSTEMS: She has bilateral cataract extraction, but denied any glaucoma or macular degeneration. Denied any earache, tinnitus, or sensorineural deafness. Denied any nosebleeds, stuffy nose, or postnasal drip. Denied any sore throat, sore tongue, toothache, hoarseness of voice, or difficulty swallowing. She does have sometimes nausea; however, she has diarrhea that has become worse after she was started on chemotherapy. Denied any hematemesis, melena, or hematochezia. She did have colonoscopy done recently about 2 weeks ago and also sigmoid biopsy. She has thickening of the sigmoid colon. Denied any dysuria, frequency, or hematuria. Denied any chest pain. Did complain of shortness of breath, but denied any orthopnea or paroxysmal nocturnal dyspnea. Denied any cough, phlegm, or hemoptysis. Denied any dizziness, lightheadedness, or vertigo. PHYSICAL EXAMINATION: GENERAL: On examining her, the patient looked somewhat pale, cachectic, but no jaundice, cyanosis, or thyromegaly. No jugular venous distention, but bilateral lower limb edema, more so on the right than left. VITAL SIGNS: Her heart rate was 93, blood pressure was 128/56, temperature was 98.1, respiratory rate was 16, and oxygen saturation was 97%. HEAD, EYES, EARS, NOSE, AND THROAT: Showed normocephalic, atraumatic. NECK: Supple. HEART: Showed normal first and second heart sounds. No gallop, rub, or murmur. CHEST: Clear to auscultation. No crepitation or rhonchi. ABDOMEN: Distended, soft, nontender. No guarding or rigidity. No organomegaly. All hernial orifice intact. Bowel sounds normal. NEUROLOGIC: She is awake, alert, responding appropriately. All cranial nerves intact. She moves extremities without difficulty. She ambulates without assistance or assistive devices. LABORATORY DATA: On arrival showed a white cell count of 3200, hemoglobin 9.5, hematocrit 28.8, MCV 84, and platelet count of 189,000 with normal manual differential. Her chemistry showed a serum sodium of 141, potassium 4.1, chloride 106, bicarbonate 24, anion gap of 11, BUN 28, creatinine 1.3, estimated GFR was 48 mL per minute. Her glucose 170, calcium was 8.9. Total bilirubin 0.3. AST, ALT, alkaline phosphatase were normal. Total protein was 6.4, albumin 2.8. Urinalysis showed the urine was yellow, cloudy with a pH of 5.5, specific gravity of 1.030. There was large amount of protein, negative for glucose. There was trace of ketones, trace of blood, negative for nitrite and leukocyte esterase. There was only 3-5 rbc's, 1-4 wbc's, and no bacteria. Her chest x-ray showed that she has calcified right hilar lymph nodes, calcified granuloma involving the right mid lung region. The cardiomediastinal silhouette is normal. Minimal bibasilar discoid atelectasis present. There is no pneumothorax. Blunting costophrenic angle is noted. Old left fourth rib fracture posteriorly is evident. Given that the swelling of her right lower extremity is more than the left, she did have right lower extremity Doppler ultrasound, which showed basically that there is no evidence of deep vein thrombosis in the veins of the right lower extremity. ASSESSMENT AND PLAN: The patient has severe hypoalbuminemia and her serum albumin has dropped dramatically so we will do a 24-hour urine collection to see whether the patient has nephrotic syndrome given that she has large amount of protein in the urine, although the swelling should have been symmetrical on both sides. I will hold her losartan as well as metformin and we will decide the further management accordingly. RENEE ROMAN MD DR: ANTOINE/mariela JOB#: [id number] / [id number]
--- NOTE | 2018-05-04 15:13 | RAD ---
CT of the abdomen and pelvis with contrast, 05/04/2018: HISTORY: Worsening cough, shortness of breath, right lower extremity swelling Multidetector CT imaging was performed following oral and IV administration of contrast. There are small to moderate size bilateral pleural effusions which are new since 07/11/2016. There is mild underlying atelectasis posteriorly in the lung bases. There are scattered calcified granulomata in the liver and spleen. No hepatic mass is evident. The gallbladder is not well distended. No dense calculi are seen. The pancreas cannot be clearly from partially opacified bowel. The spleen is of normal size. There are 2 cysts in the right kidney with the largest of these measuring just over 2 cm. The kidneys show no evidence of obstruction. There is moderate calcific plaquing of the abdominal aorta and its branches. No abdominal or pelvic adenopathy is seen. There are coarse pelvic calcifications on the right which are probably related to old necrotic uterine fibroids. The bladder is not well distended. Its celestin are thickened. The bowel loops are not dilated. There is increased density in the intra-abdominal fat compatible with generalized mesenteric edema. This results in suboptimal delineation of the intra-abdominal structures. There is also generalized subcutaneous edema compatible with anasarca. No free air is evident in the abdomen or pelvis. There are mixed lytic and sclerotic bony lesions best seen throughout the spine and in the pelvis. These were not evident on the study of 07/11/2016. The finding are compatible with osseous metastatic disease. IMPRESSION: 1. Small to moderated size bilateral pleural effusions have developed with mild associated bibasilar atelectasis. 2. Anasarca with generalized mesenteric edema and a small volume of ascites. 3. Mild diffuse bladder wall thickening. 4. New multifocal mixed lytic and blastic bony lesions compatible with metastatic disease. PQRS Compliance Statement: One or more of the following individualized dose reduction techniques were utilized for this examination: 1. Automated exposure control 2. Adjustment of the mA and/or kV according to patient size 3. Use of iterative reconstruction technique Electronically signed by: Yuriy Hammer MD (05/04/2018 3:10 PM) [facility]
[2018-05-04] MEDS: IPRATRPIUM/ALBUTEROL 0.5/2.5MG 3 ML NEBU. NEB SCH ×2 (15:33→20:31)
[2018-05-04 18:22] VITALS: BP 165/69
--- NOTE | 2018-05-04 18:27 | NUR ---
NURSING NOTE MEDICATION PT STATES SHE HAS BEEN ON HER METFORMIN FOR 20 YEARS AND TAKES IT BEFORE DINNER AND STATES SHE TOOK HER METFORMIN WITH THE MEDICATION SHE HAD BROUGHT FROM HOME SINCE THE MEDICATION WAS NOT BROUGHT TO HER. PT MEDICATION WAS ON HOLD FROM CT SCAN WITH CONTRAST UNTIL TOMORROW BUT PT HAD ALREADY TAKEN HER OWN. INSTRUCTED PT TO PLEASE LET US GIVE HER THE MEDICATION WHILE SHE IS HERE AT THE HOSPITAL. EDUARDO YOUNG.
[2018-05-04] MEDS ORDERED: IV NORMAL SALINE 1,000ML 1,000 ML IV SCH (18:45)
[2018-05-04] MEDS: ATORVASTATIN CALCIUM 20 MG TABLET PO SCH (20:07)
[2018-05-04 23:46] VITALS: BP 136/57
--- NOTE | 2018-05-05 02:08 | PN ---
DATE: 05/04/2018 SUBJECTIVE: The patient is sitting on the edge of the bed, eating her lunch comfortably, in no apparent distress. She continued to complain of swelling of her right leg, continued to have some shortness of breath and chest tightness and wheezing. Her ultrasound was negative for DVT; however, the swelling is more prominent on the right side and given that she has metastatic breast cancer, I did order a CT scan of the abdomen and pelvis with oral and IV contrast to see if there is any intraabdominal lymph nodes that is causing lymphatic obstruction, more so involving the right side more than the left. PHYSICAL EXAMINATION: GENERAL: When I examined her this afternoon, she looked pale, but no jaundice, cyanosis, or thyromegaly. No jugular venous distension. No limb edema. VITAL SIGNS: Her heart rate was 90, blood pressure was 132/60, temperature was 98.1, respiratory rate 20 and oxygen saturation was 98% on 2 liters of oxygen. HEAD, EYES, EARS, NOSE AND THROAT: Showed normocephalic, atraumatic. NECK: Supple. HEART: There is no lymphadenopathy, no thyromegaly, no jugular venous distension, no audible bruit. CARDIOVASCULAR: Showed normal first and second heart sounds. No gallop, rub or murmur. CHEST: Shows central trachea, equally reduced expansion, reduced air entry, vesicular sounds with bilateral diffuse scattered rhonchi. I could not appreciate any crepitation. ABDOMEN: Slightly distended, soft, nontender. No guarding or rigidity. No organomegaly. All hernial orifice intact. Bowel sounds normal. NEUROLOGIC: She was awake, alert, responding appropriately. All cranial nerves are intact. She moves extremities without difficulty. Her intake over the last 24 hours was 550, output was 450. LABORATORY DATA: Her lab work this morning showed a white cell count of 2700, hemoglobin 8.2, hematocrit 24.9, MCV 84 and platelet count of 160. Serum sodium 142, potassium 4, chloride 109, bicarbonate 23, anion gap of 10, BUN 22, creatinine 0.9. Estimated GFR was 74 mL per minute. Her glucose 170. Calcium was 8.4. Total bilirubin, AST, ALT, alkaline phosphatase were normal. Total protein was 5.9, albumin was 2.3. ASSESSMENT AND PLAN: 1. This is a 78-year-old female patient with metastatic breast cancer with marked deformed right lower extremity. The concern for enlarged intraabdominal lymph node that might be causing lymphatic obstruction as her venous Doppler ultrasound was negative. She has multiple other medical problems including bronchial asthma for which we started her on DuoNeb. 2. Hypertension, I did hold her losartan. 3. Hyperlipidemia. 4. Type 2 diabetes mellitus for which I held her metformin as she has a CT scan of the abdomen and pelvis with oral and IV contrast. We will repeat all her lab work tomorrow and decide on further management accordingly. 5. She has diarrhea that could be caused by Glucophage. I will switch her to extended release Glucophage once we resume it. Meanwhile, we can continue with loperamide. RENEE ROMAN MD DR: ANTOINE/mariela JOB#: [id number] / [id number]
[2018-05-05 03:07] LABS: UR PROTEIN 20.6 mg/dL (Not Estab.)
[2018-05-05] MEDS: IPRATRPIUM/ALBUTEROL 0.5/2.5MG 3 ML NEBU. NEB SCH ×4 (05:09→20:44)
[2018-05-05 05:15] VITALS: BP 133/67
[2018-05-05 06:14] LABS: HEMATOCRIT 24.1 % (36.0-47.0); RED BLOOD COUNT 2.89 x10^6/uL (3.50-5.40); RED CELL DISTRIBUTION WIDTH 18.1 % (11.5-14.5); WHITE BLOOD COUNT 2.7 x10^3/uL (4.0-11.0)
[2018-05-05 06:22] LABS: ALBUMIN 2.1 g/dL (3.4-5.0); ALBUMIN/GLOBULIN RATIO 0.6 (1.0-1.7); CALCIUM 8.4 mg/dL (8.5-10.1); CREATININE 0.8 mg/dL (0.6-1.0); GFR 84.4; POTASSIUM 3.6 mmol/L (3.5-5.1); TOTAL BILIRUBIN 0.2 mg/dL (0.2-1.0); TOTAL PROTEIN 5.6 g/dL (6.4-8.2)
[2018-05-05] MEDS: EVEROLIMUS PO SCH (08:12)
[2018-05-05] MEDS: EXEMESTANE 25 MG TABLET PO SCH (08:12)
[2018-05-05] MEDS: CHOLECALCIFEROL (VITAMIN D3) 1,000 UNIT TABLET PO SCH (08:14)
[2018-05-05] MEDS: MONTELUKAST 10 MG TABLET. PO SCH (08:14)
[2018-05-05] MEDS: LABETALOL HCL 200 MG TABLET PO SCH ×2 (08:14→20:07)
[2018-05-05] MEDS: LINAGLIPTIN 5 MG TABLET PO SCH (08:15)
[2018-05-05] MEDS: CALCIUM CARB/VIT D3 500/200 TABLET PO SCH (08:15)
[2018-05-05] MEDS: LOPERAMIDE 2 MG CAPSULE PO PRN (10:04)
[2018-05-05 10:44] VITALS: BP 127/51
[2018-05-05] MEDS ORDERED: DEXTROSE 50% 25 GM / 50ML DISP.SYRIN. IV PRN (12:45)
[2018-05-05] MEDS: FUROSEMIDE 20 MG/2 ML VIAL IVP SCH (13:44)
[2018-05-05] MEDS: ALBUMIN HUMAN 25% 50 ML IV SCH ×2 (13:45→22:22)
--- NOTE | 2018-05-05 14:05 | NUR ---
Maurilio GuilloryRn (ER nutritional yeast supervisor) call [facility] (talked with Rowan) and ask them to do their patients breathing treatments due to therapist being in a code in ER.
[2018-05-05 15:08] VITALS: BP 119/65
[2018-05-05] MEDS: DRONABINOL 2.5 MG CAPSULE PO SCH (16:40)
[2018-05-05] MEDS: INSULIN LISPRO 300 UNITS/3 ML INSULN.PEN. SQ SCH (16:51)
[2018-05-05 19:56] VITALS: BP 144/72
[2018-05-05] MEDS: ATORVASTATIN CALCIUM 20 MG TABLET PO SCH (20:06)
[2018-05-05 23:14] VITALS: BP 148/64
--- NOTE | 2018-05-05 23:14 | PN ---
DATE: 05/05/2018 SUBJECTIVE: The patient is resting slightly propped up in bed, in no apparent respiratory distress. She continued to complain of generalized swelling of the foot, more on the right lower extremity than the left. We did actually Doppler ultrasound of the right lower extremity which showed no evidence of deep vein thrombosis. CT scan of the abdomen and pelvis with oral and IV contrast showed that she has a small to moderate sized bilateral pleural effusion and has developed with mild associated bibasilar atelectasis, anasarca with generalized mesenteric edema and small volume of ascites, mild diffuse bladder wall thickening. She has no multifocal mixed lytic and blastic bony lesions compatible with metastatic disease. PHYSICAL EXAMINATION: GENERAL: When I examined her, she looked pale, but no jaundice, cyanosis, or thyromegaly. No jugular venous distention. No limb edema. VITAL SIGNS: Her heart rate was 96, blood pressure was 127/51, temperature was 97.3, respiratory rate 20, and oxygen saturation was 95% on room air. HEAD, EYES, EARS, NOSE AND THROAT: Showed normocephalic, atraumatic. NECK: Supple. HEART: Showed normal first and second heart sounds with no gallop or murmur. CHEST: Clear to auscultation. No crepitation or rhonchi. ABDOMEN: Distended, soft, nontender. No guarding or rigidity. No organomegaly. All hernial orifices intact. Bowel sounds normal. NEUROLOGIC: She was awake, alert, responding appropriately. All cranial nerves intact. She moves extremities without difficulty. EXTREMITIES: Showed no clubbing or cyanosis, but bilateral lower limb edema, more so on the right than the left. Her intake over the last 24 hours was 1550, output was 450. LABORATORY DATA: Her lab work this morning showed serum sodium 142, potassium 3.6, chloride 108, bicarbonate 22, anion gap of 12, BUN 14, creatinine 0.8, estimated GFR 84 mL per minute. Her glucose was 169, calcium was 8.4. Total bilirubin, AST, ALT, alkaline phosphatase were normal. Total protein of 5.6, albumin 2.1. Her white cell count was 2700, hemoglobin 8, hematocrit 24, MCV 84, and platelet count of 159,000. We did actually 24-hour urine collection that was only 185 mg, which does not really reach nephrotic range. PLAN: My plan is to discontinue the IV fluid, to start her on 25% human albumin with the IV Lasix and continue with all other medications and repeat her labs tomorrow and if she feels somewhat better, we can discharge her home tomorrow if she is feeling generally better. RENEE ROMAN MD DR: ANTOINE/mariela JOB#: [id number] / [id number]
[2018-05-06] MEDS: IPRATRPIUM/ALBUTEROL 0.5/2.5MG 3 ML NEBU. NEB SCH ×4 (05:25→20:57)
[2018-05-06 05:30] VITALS: BP 152/67
[2018-05-06 06:24] LABS: CALCIUM 8.4 mg/dL (8.5-10.1); CREATININE 0.8 mg/dL (0.6-1.0); GFR 84.4; POTASSIUM 3.4 mmol/L (3.5-5.1)
[2018-05-06] MEDS ORDERED: POTASSIUM CHLORIDE 20 MEQ TABLET.ER. PO ONE (08:00)
[2018-05-06] MEDS: CHOLECALCIFEROL (VITAMIN D3) 1,000 UNIT TABLET PO SCH (08:48)
[2018-05-06] MEDS: DRONABINOL 2.5 MG CAPSULE PO SCH ×2 (08:48→17:22)
[2018-05-06] MEDS: CALCIUM CARB/VIT D3 500/200 TABLET PO SCH (08:48)
[2018-05-06] MEDS: FUROSEMIDE 20 MG/2 ML VIAL IVP SCH ×2 (08:48→13:54)
[2018-05-06] MEDS: LABETALOL HCL 200 MG TABLET PO SCH ×2 (08:48→20:32)
[2018-05-06] MEDS: MONTELUKAST 10 MG TABLET. PO SCH (08:49)
[2018-05-06] MEDS: LINAGLIPTIN 5 MG TABLET PO SCH (08:49)
[2018-05-06] MEDS: EXEMESTANE 25 MG TABLET PO SCH (08:55)
[2018-05-06] MEDS: INSULIN LISPRO 300 UNITS/3 ML INSULN.PEN. SQ SCH ×3 (08:56→17:23)
[2018-05-06] MEDS: ALBUMIN HUMAN 25% 50 ML IV SCH ×3 (08:58→20:31)
[2018-05-06] MEDS: EVEROLIMUS PO SCH (08:58)
[2018-05-06 10:26] VITALS: BP 126/58
--- NOTE | 2018-05-06 12:33 | NUR ---
Patient doing well this morning, denies complaints except for having her legs being slightly swollen. Eliazar son applied this AM and encouraged patient to elevate legs throughout day. Patient on electrolyte protocol, potassium given this AM.
[2018-05-06] MEDS ORDERED: ALBUTEROL SULFATE 2.5 MG/3 ML NEBU. IH PRN (13:30)
--- NOTE | 2018-05-06 14:27 | EKG ---
[address] [address] Test Date: 2018-05-03 Test Time: 16:01:34 Pat Name: ERNA FRENCH Department: Room: 107 A Gender: F Instrument And Controls Technician: : 1940 Requested By: SHERIDAN OH Order Number: [id number] Reading MD: Drew Miller MD Measurements Intervals [place] Rate: 100 P: 28 NV: 138 QRS: 21 QRSD: 84 T: 36 QT: 328 QTc: 426 Interpretive Statements SINUS RHYTHM LOW LIMB LEAD VOLTAGE NON-SPECIFIC ST/T CHANGES Electronically Signed On 05-07-2018 14:40:02 CDT by Drew Miller MD
[2018-05-06 14:50] VITALS: BP 132/61
[2018-05-06] MEDS ORDERED: metFORMIN 500 MG TABLET PO SCH (17:00)
[2018-05-06] MEDS: metFORMIN XR 500 MG TAB.ER.24H PO SCH (17:22)
--- NOTE | 2018-05-06 18:40 | PN ---
DATE: 05/06/2018 SUBJECTIVE: The patient in sitting on the edge of the bed, eating lunch comfortably. She did complain of chest tightness and wheezing that is actually audible. Her legs are still slightly swollen and she seemed to be eating more. I explained to her that high blood sugar is not indication to stop eating. We can cover it with insulin and that her biggest problem is that she has malnutrition and severe low protein that caused the third spacing and swelling of her legs. She is also on Glucophage which is causing diarrhea and the Afinitor can cause a lot of these side effects also. PHYSICAL EXAMINATION: GENERAL: When I examined her, she looked pale, cachectic, but no jaundice, cyanosis or thyromegaly. No jugular venous distention. No lower limb edema. VITAL SIGNS: Her heart rate was 91, blood pressure was 126/58, temperature was 98, respiratory rate 20 and oxygen saturation was 97%. HEENT: Examination of the head, eyes, ears, nose and throat showed normocephalic, atraumatic. NECK: Supple. HEART: Showed normal first and second heart sounds. No gallop, rub or murmur. CHEST: Shows central trachea, equally reduced expansion, reduced air entry, vesicular sounds, scattered rhonchi bilaterally. ABDOMEN: Her abdomen was slightly soft, nontender. No guarding or rigidity. No organomegaly. All hernial orifices are intact. Bowel sounds normal. NEUROLOGIC: She was awake, alert, responding appropriately. All her cranial nerves are intact. She moves extremities without difficulty. Her intake over the last 24 hours was 1674, output was 800. LABORATORY DATA: Her lab work as of this morning showed a serum sodium 142, potassium 3.4, chloride 108, bicarbonate 23, anion gap of 11, BUN 14, creatinine 0.8, estimated GFR was 84 mL per minute. Her glucose was 141, calcium was 8.4. White cell count was 2700, hemoglobin 8, hematocrit 24, MCV was 84 and platelet count of 159,000. Her C. diff was negative. Urinalysis was unremarkable. ASSESSMENT AND PLAN: 1. Severe hypoalbuminemia and generalized anasarca causing bilateral lymphedema, ascites, and bilateral pleural effusion for which she is now on IV human albumin 25% together with IV Lasix. 2. Severe anorexia and poor oral intake for which we started her on Marinol 2.5 mg twice a day. 3. Stage 4 breast cancer with metastases to the bones, for which she is on 2 medications including Aromasin as well as Afinitor 2.5 mg daily. 4. Rate controlled type 2 diabetes mellitus for which she is on Glucophage as well as Tradjenta. I explained to the patient that sometimes short-acting metformin can cause severe diarrhea and recommended to trying Glucophage extended release and the patient was not eating when her blood sugar is high. I explained to her that she has to eat and we will cover her blood sugar with insulin, if necessary. She has an appointment to see an senior dot net developer on 06/06/2018. I recommended that she should keep the appointment. We will continue today with the 25% human albumin and IV Lasix for now. She probably would benefit from a protein supplement and to teach her to go on insulin to improve her blood sugar control and obviously assist with her nutritional status. RENEE ROMAN MD DR: ANTOINE/mariela JOB#: [id number] / [id number]
[2018-05-06 19:31] VITALS: BP 151/75
[2018-05-06] MEDS: ATORVASTATIN CALCIUM 20 MG TABLET PO SCH (20:32)
[2018-05-06 22:21] VITALS: BP 144/72
[2018-05-07] MEDS: IPRATRPIUM/ALBUTEROL 0.5/2.5MG 3 ML NEBU. NEB SCH ×4 (05:05→22:38)
[2018-05-07 05:12] VITALS: BP 157/71
[2018-05-07 06:25] LABS: CALCIUM 9.1 mg/dL (8.5-10.1); CREATININE 0.8 mg/dL (0.6-1.0); GFR 84.4; POTASSIUM 3.9 mmol/L (3.5-5.1)
[2018-05-07] MEDS: CALCIUM CARB/VIT D3 500/200 TABLET PO SCH (08:10)
[2018-05-07] MEDS: MONTELUKAST 10 MG TABLET. PO SCH ×2 (08:11→21:34)
[2018-05-07] MEDS: LINAGLIPTIN 5 MG TABLET PO SCH (08:12)
[2018-05-07] MEDS: metFORMIN XR 500 MG TAB.ER.24H PO SCH ×2 (08:12→17:06)
[2018-05-07] MEDS: CHOLECALCIFEROL (VITAMIN D3) 1,000 UNIT TABLET PO SCH (08:12)
[2018-05-07] MEDS: ALBUMIN HUMAN 25% 50 ML IV SCH ×3 (08:13→21:33)
[2018-05-07] MEDS: LABETALOL HCL 200 MG TABLET PO SCH ×2 (08:13→21:34)
[2018-05-07] MEDS: FUROSEMIDE 20 MG/2 ML VIAL IVP SCH ×2 (08:13→13:21)
[2018-05-07] MEDS: EXEMESTANE 25 MG TABLET PO SCH (08:14)
[2018-05-07] MEDS: INSULIN LISPRO 300 UNITS/3 ML INSULN.PEN. SQ SCH ×3 (08:14→17:13)
[2018-05-07] MEDS: EVEROLIMUS PO SCH (08:15)
[2018-05-07 10:45] VITALS: BP 140/61
[2018-05-07] MEDS: DRONABINOL 2.5 MG CAPSULE PO SCH ×2 (11:50→17:06)
[2018-05-07 15:02] VITALS: BP 154/70
[2018-05-07] MEDS ORDERED: MAGNESIUM SULFATE 2GM 50 ML IV ONE (15:45)
[2018-05-07] MEDS ORDERED: FURO20TA3 PO (17:26)
[2018-05-07] MEDS ORDERED: DRON2.5C PO (17:26)
[2018-05-07] MEDS ORDERED: MAGN400T22 PO (17:26)
--- NOTE | 2018-05-07 18:37 | DS ---
DATE OF DISCHARGE: 05/07/2018 HOSPITAL COURSE: The patient is a 78-year-old -[place] female patient who came to the Emergency Room complaining of this pain and swelling of both, especially her right leg. We did order a venous Doppler ultrasound, which was negative. Further investigation showed that she had severe hypoalbuminemia with serum albumin of only 2.3. We did a 24-hour urine, did not show any evidence of nephrotic range proteinuria. We did start her on 25% human albumin with IV Lasix. Further investigation showed that she had generalized anasarca. She had bilateral pleural effusion, mild small ascites and generalized anasarca. She has also had chronic diarrhea. She is on short acting metformin that can cause diarrhea. She is also on Afinitor, which apparently can cause also diarrhea and a lot of other findings including bilateral pleural effusion. We did treat her. I added Marinol and transpired that whenever her blood sugar is high, she stopped eating that has obviously compounded her malnutrition. I switched her to extended release metformin to help relieve at least that part of her diarrhea and also started her on insulin and we educated her and gave her a prescription for that. Magnesium was also extremely low, so we gave her 2 g of magnesium sulfate, started her on magnesium oxide. Her serum iron, total iron binding capacity and percent saturation were low, but serum ferritin was normal consistent with anemia of chronic disease. Her serum B12 was normal at 1555. She has also bronchial asthma and she continued treatment with her nebulized albuterol and Atrovent. PHYSICAL EXAMINATION: GENERAL: When I saw her today, she looked well and was clearly in no apparent respiratory distress. She was pale and definitely underweight, her body mass index only 22. However, there is no jugular venous distention. Mild bilateral lower limb edema. VITAL SIGNS: Her heart rate was 109, blood pressure was 154/70, temperature was 97.8, respiratory rate was 20, and oxygen saturation was 95% on room air. HEAD, EYES, EARS, NOSE AND THROAT: Showed she is normocephalic, atraumatic. NECK: Supple. HEART: Showed normal first and second sounds. No gallop or murmur. CHEST: Shows central trachea, equal bilateral expansion, air entry, vesicular sounds. I could not appreciate any crepitation. She has very few scattered rhonchi. ABDOMEN: Scaphoid, soft, nontender. NEUROLOGIC: She is awake, alert, responding appropriately. Extraocular movements intact. She moves extremities without difficulty. She ambulates with a walker. Her intake over the last 24 hours was 1674, output was 800. LABORATORY DATA: Showed that her serum sodium was 142, potassium 3.4, chloride 108, bicarbonate 23, anion gap of 11, BUN 14, creatinine 0.8, estimated GFR was 84 mL per minute. Her glucose was 141, calcium was 8.4. Serum iron is 11, TIBC was 138, percent iron saturation was 8, but serum ferritin was 138. Her vitamin B12 was 1554. Her total bilirubin, AST, ALT, alkaline phosphatase normal. Total protein was 5.6, albumin was 2.1. Her white cell count was 2700, hemoglobin 8, hematocrit 24, MCV 84 and platelet count of 159,000. DISCHARGE MEDICATIONS: The patient was discharged home to continue on Marinol 2.5 mg twice a day, furosemide 20 mg once a day, magnesium oxide 400 mg once a day, albuterol sulfate 2 puffs every 6 hours, atorvastatin 20 mg at bedtime, calcium carbonate with vitamin D 1 tablet daily, cholecalciferol 2000 International Units once a day, diltiazem 180 mg once a day, Afinitor 2.5 mg daily, exemestane 25 mg once a day, labetalol 200 mg twice a day, linagliptin for Tradjenta 5 mg daily, losartan potassium 50 mg once a day, metformin extended release 1000 mg twice a day, montelukast 10 mg once a day. FINAL DISCHARGE DIAGNOSES: 1. Generalized anasarca due to severe hypoalbuminemia with serum albumin of only 2.5 mg. The patient has bilateral lower limb edema, ascites, bilateral pleural effusion. 2. Severe anorexia and poor oral intake for which we started her on Marinol 2.5 mg twice a day. 3. Poorly controlled type 2 diabetes mellitus, which she is on Glucophage as well as Tradjenta. I started her on Humalog insulin as insulin sliding scale before meals. 4. Stage IV breast cancer, metastatic disease to the bones for which she is on two medications including Aromasin as well as Afinitor 2.5 mg daily, and their side effects might be contributing to her overall status. 5. Chronic diarrhea, likely due to her chemotherapy as well as short-acting Glucophage. I switched her to extended release metformin. The patient has an appointment to see her oncologist next week and to see an post office markup clerk on 06/06/2018, I asked them to keep the appointment. 6. For her hypomagnesemia, she was given 2 grams of magnesium sulfate and was discharged home on 400 mg twice a day. I also discharged her with a small dose of Lasix together with potassium supplement. I also advised her to use Glucerna as a supplement to improve her nutritional status. PLAN: We will discharge her home with home health with the nursing staff to teach her how to use insulin and physical and occupational therapist to assist with her to continue the process of rehabilitation. RENEE ROMAN MD DR: ANTOINE/mariela JOB#: [id number] / [id number]
[2018-05-07 18:54] LABS: ALBUMIN 3.2 g/dL (3.4-5.0); ALBUMIN/GLOBULIN RATIO 0.9 (1.0-1.7); CALCIUM 9.6 mg/dL (8.5-10.1); CREATININE 1.1 mg/dL (0.6-1.0); GFR 58.4; POTASSIUM 3.7 mmol/L (3.5-5.1); TOTAL BILIRUBIN 0.2 mg/dL (0.2-1.0); TOTAL PROTEIN 6.9 g/dL (6.4-8.2)
[2018-05-07 19:10] VITALS: BP 141/68
[2018-05-07] MEDS: ATORVASTATIN CALCIUM 20 MG TABLET PO SCH (21:34)
--- NOTE | 2018-05-07 21:44 | RAD ---
EXAM: Supine AP view of the abdomen DATE: 05/07/2018 6:25 PM INDICATION: constipation. pt had ct 05/04/18 COMPARISON: No Prior FINDINGS: No abnormal small or large bowel dilatation. Moderate colonic stool content. No abnormal soft tissue mass effect. No suspicious calcifications are seen. Evaluation for free intraperitoneal gas is limited on this supine exam. Subacute left posterior lateral left 11th rib fractures seen. Left acetabular sclerotic lesion is again seen. Other bony lesions are better assessed on prior CT. Minimal patchy lung base opacities, possibly atelectasis. IMPRESSION: 1. No evidence for bowel obstruction. 2. Moderate colonic stool content. Electronically signed by: Jean Faye MD (05/07/2018 9:41 PM) [employer]
--- NOTE | 2018-05-07 21:55 | NUR ---
KUB and BG Per MD George, order, called George with results from pt's KUB at approx 2155. Results were unremarkable. Asked George if he wanted any insulin coverage for pt given BG level of 261 and no coverage ordered for pt at HS. George stated no intervention necessary, continue with current POC. WCTM. Karen Nath RN
[2018-05-07 22:35] VITALS: BP 139/66
[2018-05-08] MEDS: IPRATRPIUM/ALBUTEROL 0.5/2.5MG 3 ML NEBU. NEB SCH ×4 (04:41→20:32)
[2018-05-08 04:53] VITALS: BP 131/64
[2018-05-08] MEDS: CALCIUM CARB/VIT D3 500/200 TABLET PO SCH (08:14)
[2018-05-08] MEDS: LABETALOL HCL 200 MG TABLET PO SCH ×2 (08:15→20:27)
[2018-05-08] MEDS: CHOLECALCIFEROL (VITAMIN D3) 1,000 UNIT TABLET PO SCH (08:15)
[2018-05-08] MEDS: MONTELUKAST 10 MG TABLET. PO SCH ×2 (08:15→20:27)
[2018-05-08] MEDS: LINAGLIPTIN 5 MG TABLET PO SCH (08:15)
[2018-05-08] MEDS: metFORMIN XR 500 MG TAB.ER.24H PO SCH (08:15)
[2018-05-08] MEDS: EVEROLIMUS PO SCH (08:16)
[2018-05-08] MEDS: EXEMESTANE 25 MG TABLET PO SCH (08:20)
[2018-05-08] MEDS: ALBUMIN HUMAN 25% 50 ML IV SCH ×3 (08:21→20:26)
[2018-05-08] MEDS: FUROSEMIDE 20 MG/2 ML VIAL IVP SCH ×2 (08:21→14:36)
[2018-05-08] MEDS: INSULIN LISPRO 300 UNITS/3 ML INSULN.PEN. SQ SCH ×3 (08:22→17:43)
[2018-05-08] MEDS: POLYETHYLENE GLYCOL 3350 17 GM PACKET. PO SCH (09:30)
[2018-05-08 10:02] LABS: BASO % 1 % (0-3); EOS # 0.1 x10^3/uL (0.0-0.7); EOS % 3 % (0-3); HEMATOCRIT 25.6 % (36.0-47.0); HEMOGLOBIN 8.5 g/dL (12.0-15.5); LYMPH # 0.2 x10^3/uL (1.0-4.8); LYMPH % 8 % (24-48); MEAN CORPUSCULAR HEMOGLOBIN 28 pg (25-35); MEAN CORPUSCULAR HGB CONC 33 g/dL (31-37); MEAN CORPUSCULAR VOLUME 83 fL (79-100); MONO # 0.3 x10^3/uL (0.0-1.1); MONO % 13 % (0-9); NEUT % 76 % (31-73); PLATELET COUNT 181 x10^3/uL (140-400); RED BLOOD COUNT 3.09 x10^6/uL (3.50-5.40); RED CELL DISTRIBUTION WIDTH 18.4 % (11.5-14.5); WHITE BLOOD COUNT 2.6 x10^3/uL (4.0-11.0)
[2018-05-08 10:14] LABS: ALBUMIN 2.9 g/dL (3.4-5.0); ALBUMIN/GLOBULIN RATIO 0.9 (1.0-1.7); CALCIUM 8.9 mg/dL (8.5-10.1); CREATININE 0.9 mg/dL (0.6-1.0); GFR 73.7; MAGNESIUM 1.8 mg/dL (1.8-2.4); POTASSIUM 3.8 mmol/L (3.5-5.1); TOTAL BILIRUBIN 0.3 mg/dL (0.2-1.0); TOTAL PROTEIN 6.2 g/dL (6.4-8.2)
[2018-05-08 10:27] VITALS: BP 136/71
[2018-05-08] MEDS: DRONABINOL 2.5 MG CAPSULE PO SCH ×2 (11:27→17:40)
[2018-05-08] MEDS ORDERED: BISACODYL 10 MG SUPP.RECT PR ONE (14:30)
[2018-05-08] MEDS ORDERED: MAGNESIUM CITRATE 296 ML SOLUTION. PO PRN (14:30)
[2018-05-08 15:50] VITALS: BP 129/62
[2018-05-08] MEDS: metFORMIN 500 MG TABLET PO SCH (17:40)
[2018-05-08 19:08] VITALS: BP 161/67
[2018-05-08] MEDS: ATORVASTATIN CALCIUM 20 MG TABLET PO SCH (20:26)
--- NOTE | 2018-05-09 00:31 | PN ---
DATE: 05/08/2018 SUBJECTIVE: The patient is resting slightly propped up in bed, continues to complain of marked abdominal bloating and constipation. So far, she has not had any bowel movement. We did switch her to metformin extended release and probably that is the cause of her constipation and therefore I discontinued that. She was given Dulcolax suppositories and also mag citrate as well as MiraLax and so far without much improvement. PHYSICAL EXAMINATION: GENERAL: When I saw her this afternoon, she looked well, slightly pale. No jaundice, cyanosis, or thyromegaly. No jugular venous distension. Mild bilateral lower limb edema. VITAL SIGNS: Her heart rate was 90, blood pressure was 129/62, temperature was 98.1, respiratory rate 24, and oxygen saturation was 96%. HEAD, EYES, EARS, NOSE, AND THROAT: Showed normocephalic, atraumatic. NECK: Supple. HEART: Showed normal first and second heart sounds with no gallop, rub, or murmur. CHEST: Clear to auscultation. No crepitation or rhonchi. ABDOMEN: Soft, nontender, definitely distended, the bowel sounds are normal. NEUROLOGIC: She was awake, alert, responding appropriately. All cranial nerves intact. She moved extremities without difficulty. Her intake over the last 24 hours was 1900, output was 900. LABORATORY DATA: As of this morning, her white cell count was 2600, hemoglobin 8.5, hematocrit 25.6, MCV 83, and platelet count of 181,000. Serum sodium was 140, potassium 3.8, chloride 105, bicarbonate 25, anion gap of 10, BUN 22, creatinine 0.9, estimated GFR was 74 mL per minute. Her glucose was 171, calcium was 8.9, magnesium was 1.8. Total bilirubin, AST, ALT, alkaline phosphatase were normal. Total protein was 6.2, albumin was 2.9. Urinalysis was unremarkable and her stool for C diff was negative. ASSESSMENT: 1. Abdominal bloating, likely secondary to extended release Glucophage that I discontinued, we will switch her back to short acting one. 2. Generalized anasarca due to severe hypoalbuminemia with serum albumin is only 2.5 g/dL. The patient has bilateral lower limb edema, ascites, and bilateral pleural effusions. She is on IV Lasix and IV 25% human albumin. 3. Severe anorexia and poor oral intake, for which we started her on Marinol 2.5 mg twice a day. 4. Poorly controlled type 2 diabetes mellitus, which she is on Glucophage as well as Tradjenta. We did start her on Humalog insulin as insulin sliding scale before meals. 5. Stage IV breast cancer, metastatic with metastatic disease to the bones, for which she is on Aromasin as well as Afinitor 2.5 mg daily. 6. Chronic diarrhea, likely due to chemotherapy as well as short-acting Glucophage. 7. Hypomagnesemia, for which she was given 2 grams of magnesium sulfate and was started on 400 mg twice a day. PLAN: My plan is to discontinue the long-acting metformin and we will switch her back to short-acting metformin. Continue with all other medications. If she had bowel movement tonight, she can be discharged home with home health tomorrow. RENEE ROMAN MD DR: ANTOINE/mariela JOB#: [id number] / [id number]
[2018-05-09 05:00] VITALS: BP 125/56
[2018-05-09] MEDS: IPRATRPIUM/ALBUTEROL 0.5/2.5MG 3 ML NEBU. NEB SCH ×3 (05:02→16:00)
[2018-05-09 07:04] LABS: CALCIUM 8.6 mg/dL (8.5-10.1); CREATININE 0.9 mg/dL (0.6-1.0); GFR 73.7; MAGNESIUM 1.9 mg/dL (1.8-2.4); POTASSIUM 3.8 mmol/L (3.5-5.1)
[2018-05-09] MEDS: INSULIN LISPRO 300 UNITS/3 ML INSULN.PEN. SQ SCH ×2 (08:00→12:57)
[2018-05-09 08:59] VITALS: BP 125/56
[2018-05-09] MEDS: CALCIUM CARB/VIT D3 500/200 TABLET PO SCH (08:59)
[2018-05-09] MEDS: LABETALOL HCL 200 MG TABLET PO SCH (08:59)
[2018-05-09] MEDS: CHOLECALCIFEROL (VITAMIN D3) 1,000 UNIT TABLET PO SCH (08:59)
[2018-05-09] MEDS: LINAGLIPTIN 5 MG TABLET PO SCH (08:59)
[2018-05-09] MEDS: metFORMIN 500 MG TABLET PO SCH (08:59)
[2018-05-09] MEDS: FUROSEMIDE 20 MG/2 ML VIAL IVP SCH (09:00)
[2018-05-09] MEDS: POLYETHYLENE GLYCOL 3350 17 GM PACKET. PO SCH (09:00)
[2018-05-09] MEDS: ALBUMIN HUMAN 25% 50 ML IV SCH (09:01)
[2018-05-09] MEDS: EVEROLIMUS PO SCH (09:01)
[2018-05-09] MEDS: EXEMESTANE 25 MG TABLET PO SCH (09:05)
[2018-05-09] MEDS: DRONABINOL 2.5 MG CAPSULE PO SCH (12:28)
--- NOTE | 2018-05-09 16:06 | NUR ---
Patient left unit in stable condition via wheelchair accompanied by family member and this nurse. All discharge, medication and follow up instructions given to patient and patient gave verbal understanding.
== END 2018-05-09 15:30 | disposition home health service (06) | DRG 555 ==
LOC: ER 15:32 → 1 SOUTH 17:35
PROVIDERS: ADMIT Internal Medicine; ATTEND Internal Medicine
DX: M79.89 Other specified soft tissue disorders (principal); E43 Unspecified severe protein-calorie malnutrition; J90 Pleural effusion, not elsewhere classified; R18.8 Other ascites; J98.11 Atelectasis; C79.51 Secondary malignant neoplasm of bone; I10 Essential (primary) hypertension; E78.5 Hyperlipidemia, unspecified; J45.909 Unspecified asthma, uncomplicated; T45.1X5A Adverse effect of antineoplastic and immunosuppressive drugs, initial encounter; C50.912 Malignant neoplasm of unspecified site of left female breast; E11.65 Type 2 diabetes mellitus with hyperglycemia; E83.42 Hypomagnesemia; K52.9 Noninfective gastroenteritis and colitis, unspecified; T38.3X5A Adverse effect of insulin and oral hypoglycemic [antidiabetic] drugs, initial encounter; D63.8 Anemia in other chronic diseases classified elsewhere; D72.819 Decreased white blood cell count, unspecified; I89.0 Lymphedema, not elsewhere classified; Z68.20 Body mass index [BMI] 20.0-20.9, adult; Z92.3 Personal history of irradiation; Z98.41 Cataract extraction status, right eye; Z98.42 Cataract extraction status, left eye; Z83.3 Family history of diabetes mellitus; Z80.0 Family history of malignant neoplasm of digestive organs; Z79.811 Long term (current) use of aromatase inhibitors; Z87.891 Personal history of nicotine dependence; Z79.84 Long term (current) use of oral hypoglycemic drugs; Y92.89 Other specified places as the place of occurrence of the external cause
CPT/HCPCS: 36415; 71045; 74018; 74177; 80048; 80053; 81001; 82607; 82728; 82947; 83540; 83550; 83690; 83735; 83880; 84156; 84484; 85025; 85027; 87493; 93005; 93971; 94640; J1815; J3475; J7040; J7613; J7620; P9046; Q0167; Q9967; 99285-25; J7030

== ENCOUNTER → 2018-05-19 | Outpatient (CLI) | payer OTHER, MEDICARE ==
[2018-05-09 08:59] VITALS: BP 125/56
[~2018-05-19] MED LIST changes: +ATOR20TA58 PO; +BUDE10.2 IH; +BUME2TAB PO; +CALC-157 PO; +DRON2.5C PO; +DRON5CAP2 PO; +EXEM25TA2 PO; +FURO20TA3 PO; +INSU100C SQ; +INSU100I13 SQ; +IPRA3AMP29 NEB; +LINA5TAB4 PO; +MAGN400T22 PO; +MESA1.2T PO; +ONDA8TAB9 PO; +PACL100V IV; +POLY17PO5 PO; +POTA10TA10 PO; +SIME80TA14 PO; +SPIR25TA5 PO; +ZOLP10TA PO; +[UNRECOGNIZED DRUG - CODE] PO
[2018-05-19 12:34] LABS: BASO % 1 % (0-3); EOS # 0.1 x10^3/uL (0.0-0.7); EOS % 2 % (0-3); HEMATOCRIT 28.6 % (36.0-47.0); HEMOGLOBIN 9.3 g/dL (12.0-15.5); LYMPH # 0.2 x10^3/uL (1.0-4.8); LYMPH % 7 % (24-48); MEAN CORPUSCULAR HEMOGLOBIN 26 pg (25-35); MEAN CORPUSCULAR HGB CONC 33 g/dL (31-37); MEAN CORPUSCULAR VOLUME 81 fL (79-100); MONO # 0.2 x10^3/uL (0.0-1.1); MONO % 9 % (0-9); NEUT # 2.1 x10^3uL (1.8-7.7); NEUT % 82 % (31-73); PLATELET COUNT 183 x10^3/uL (140-400); RED BLOOD COUNT 3.53 x10^6/uL (3.50-5.40); RED CELL DISTRIBUTION WIDTH 19.2 % (11.5-14.5); WHITE BLOOD COUNT 2.6 x10^3/uL (4.0-11.0)
[2018-05-19 12:49] LABS: CALCIUM 9.8 mg/dL (8.5-10.1); CREATININE 0.9 mg/dL (0.6-1.0); DIRECT BILIRUBIN 0.1 mg/dL (0.0-0.2); GFR 73.7; MAGNESIUM 1.5 mg/dL (1.8-2.4); POTASSIUM 3.8 mmol/L (3.5-5.1); TOTAL BILIRUBIN 0.4 mg/dL (0.2-1.0)
[2018-05-20 03:06] LABS: HEMOGLOBIN A1C 8.3 % (4.8-5.6)
[2018-05-20 13:06] LABS: FREE T4 1.42 ng/dL (0.76-1.46); THYROID STIM HORMONE (TSH) 3.06 uIU/mL (0.358-3.740)
[2018-05-20 14:55] LABS: BACTERIA,URINE MANY /HPF (0-FEW); BILIRUBIN,URINE NEG (NEG); CLARITY,URINE HAZY; COLOR,URINE STRAW; GLUCOSE,URINE NEG (NEG); NITRITE,URINE NEG (NEG); RBC,URINE 0 /HPF (0-2); SQUAMOUS EPITHELIAL CELL,UR FEW /LPF; UROBILINOGEN,URINE 0.2 mg/dL (0.2 mg/dL); WBC,URINE OCC /HPF (0-4)
== END | disposition home or self-care (01) ==
LOC: LAB 11:52
PROVIDERS: ATTEND Physician Assistant
DX: C50.919 Malignant neoplasm of unspecified site of unspecified female breast (principal); E88.09 Other disorders of plasma-protein metabolism, not elsewhere classified; E11.9 Type 2 diabetes mellitus without complications; R63.0 Anorexia; R18.8 Other ascites
CPT/HCPCS: 36415; 80048; 80076; 81001; 82150; 83036; 83690; 83735; 83880; 84439; 84443; 85025; 87086; 87186

== ENCOUNTER 2018-07-10 22:34 | Inpatient (IN) | payer OTHER, MEDICARE ==
[~2018-07-10] VITALS: Ht 160 cm; Wt 56.9 kg
[~2018-07-10 22:34] MED LIST changes: -BUDE10.2 IH; -BUME2TAB PO; -DRON5CAP2 PO; -INSU100C SQ; -INSU100I13 SQ; -IPRA3AMP29 NEB; -MESA1.2T PO; -ONDA8TAB9 PO; -PACL100V IV; -POLY17PO5 PO; -POTA10TA10 PO; -SIME80TA14 PO; -SPIR25TA5 PO; -ZOLP10TA PO
--- NOTE | 2018-07-10 22:36 | ED.ADGEN ---
Past History Past Medical History: Asthma, Cancer, CHF, Diabetes, Hypertension, Other Past Medical History Metastatic Breast CA- Surgery, Radiation, Chemo Past Surgical History: Cancer Surgery, Other Smoking: Non-smoker Alcohol Use: None Drug Use: None Adult General Chief Complaint Chief Complaint ".. I got my fourth tx for breast cancer to day... Dr. Gil is treating it.. and after wards I was short of breath... then went to Dr. Maher.. and it came up on oxygen... I went home..but the oxygen delivery people can't come until tomorrow...." HPI HPI Patient is a 78 year old female who presents with above hx and complaints of dyspnea with hypoxia. Pt. presents with Sat 83% on room air. Pt. has no home oxygen and her primary was unable to set up delivery until Friday. Pt. has know hx of Metastatic breast cancer. Pt. Dx with Breast cancer in 2000 with Lumpectomy, 2017, had recurrence of breast cancer that had metastatic lesions to bones. Pt. had radiation and oral chemotherapy. Recently started on IV chemo therapy every Friday. Pt. had her 4 th IV chemo treatment this Friday in Dr. Gil clinic. . Pt. afterwards became short of breath and seen in clinic [facility]. Pt. found to be hypoxic. Pt. sent home with plans for home oxygen delivery. However this could not be set up for this week end. Pt. Has had problems with pleural effusions- and had previous thoracentesis 1 month ago. Patient has past history of CHF, coronary artery disease, diabetes, hypertension, asthma, bronchitis, anemia , malnutrition and arthritis. Review of Systems Review of Systems Constitutional: Denies fever or chills [] Eyes: Denies change in visual acuity, redness, or eye pain [] HENT: Denies nasal congestion or sore throat [] Respiratory: Complailnts of shortness of breath and hypoxia Cardiovascular: No additional information not addressed in HPI [] GI: Denies abdominal pain, nausea, vomiting, bloody stools or diarrhea [] : Denies dysuria or hematuria [] Musculoskeletal: Denies back pain or joint pain [] Integument: Denies rash or skin lesions [] Neurologic: Denies headache, focal weakness or sensory changes [] Endocrine: Denies polyuria or polydipsia [] All other systems were reviewed and found to be within normal limits, except as documented in this note. Family History Family History Non-contributory Current Medications Current Medications Current Medications Medications (Trade) Dose Ordered Sig/Julio Start Time Stop Time Status Last Admin Dose Admin Albuterol/ Ipratropium (Duoneb) 3 ml 1X ONCE 07/10/18 23:00 07/10/18 23:01 DC 07/10/18 23:00 3 ML Lactated Ringer's 1,000 ml @ 100 mls/hr Q10H 07/10/18 22:39 07/11/18 08:38 07/11/18 00:11 100 MLS/HR Lidocaine/ Prilocaine (Emla) 5 allison STK-MED ONCE 07/10/18 23:00 07/10/18 23:01 DC Methylprednisolone Sodium Succinate (SOLU-Medrol 125MG VIAL) 125 mg 1X ONCE 07/10/18 23:00 07/10/18 23:01 DC 07/11/18 00:11 125 MG Allergies Allergies Allergies Coded Allergies Type Severity Reaction Last Updated Verified No Known Drug Allergies 03/24/14 No Physical Exam Physical Exam Constitutional:, mild distress, non-toxic appearance. [] HENT: Normocephalic, atraumatic, bilateral external ears normal, oropharynx moist, no oral exudates, nose normal. [] Eyes: PERRLA, EOMI, conjunctiva normal, no discharge. [] Neck: Normal range of motion, no tenderness, supple, no stridor. [] Cardiovascular: Tachycardia Heart rate regular rhythm, no murmur []PMI to the left Lungs & Thorax: Bilateral breath sounds equal apex with scattered wheezes on auscultation []basilar crackles. Port on right. Old surgical scars Abdomen: Bowel sounds normal, soft, no tenderness, no masses, no pulsatile masses. [] Skin: Warm, dry, no erythema, no rash. Poor turgor Back: No tenderness, no CVA tenderness. [] Extremities: No tenderness, no cyanosis, no clubbing, ROM intact, no edema. Trace ankle edema Neurologic: Alert and oriented X 3, normal motor function, normal sensory function, no focal deficits noted. [] Psychologic: Affect anxious, judgement normal, mood normal. [] Current Patient Data Vital Signs Vital Signs Date Time Temp Pulse Resp B/P (MAP) Pulse Ox O2 Delivery O2 Flow Rate FiO2 07/10/18 23:00 95 Nasal Cannula 2.0 07/10/18 22:40 112 22 141/61 (87) 07/10/18 22:35 98.3 Lab Results Laboratory Tests Test 07/10/18 22:54 07/10/18 22:57 Blood pH 7.41 (7.35-7.45) Blood Gas PCO2 39 mmHg (35-45) Blood Gas PO2 47 mmHg (71-100) *L Blood Gas HCO3 25 mmol/L (22-26) Arterial Bld O2 Saturation (Calc) 83 % (92-99) L FiO2 21 % POC Arterial pH 7.41 (7.35-7.45) POC Arterial pCO2 39 mmHg (35-45) POC Arterial pO2 47 mmHg (75-100) L Arterial Blood HCO3 25 mmol/L (21-28) POC Arterial Blood O2 Sat 83 % (95-99) L POC FiO2 21.0 EKG EKG My interpretation of EKG sinus tachycardia 105, low voltage[] Radiology/Procedures Radiology/Procedures My interpretation chest x-ray shows port on right. Has borderline cardiac silhouette. Bilateral pleural effusions. Some increased cephalization. Degenerative joint changes. CT of chest pending at time of admission Ultrasound of chest pending at time of admission[] Course & Med Decision Making Course & Med Decision Making Pertinent Labs and Imaging studies reviewed. (See chart for details). Patient admitted to for further eval . and tx. Hopefully oxygen can be set up this weekend. Will obtain CT chest to rule out large PE in proximal vessels. US of legs and arms in AM. Will started Lovenox until these studies completed. Will continue hold aspirin since this was held previously because of low platelet levels. Noted pt needed min. oxygen to bring sats above 96%. May need eventual repeat thoracentesis for bilateral pleural effusions. [] Final Impression Final Impression 1. Respiratory failure hypoxia- ( No home oxygen) 2. History of metastatic breast cancer fourth course of IV chemotherapy 3. Pulmonary edema and bilateral pleural effusions Rt> Lt. 4. CHF BNP 735-diastolic dysfunction 5. Elevated d-dimer 4.60 6. History of pancytopenia 7. Malnutrition albumin 2.7 8. DM 289 9. Anemia 8.5 Hgb. 10.Leukopenia 3.1 [] Dragon Disclaimer Dragon Disclaimer This electronic medical record was generated, in whole or in part, using a voice recognition dictation system. LUCIO WADSWORTH MD July 10, 2018 22:36
[2018-07-10] MEDS ORDERED: IV RINGERS SOLUTION,LACTATED 1,000 ML IV SCH (22:39)
[2018-07-10] MEDS ORDERED: IPRATRPIUM/ALBUTEROL 0.5/2.5MG 3 ML NEBU. NEB ONE (23:00)
[2018-07-10] MEDS ORDERED: methylPREDNISolone SOD SUCC PF 125 MG/2 ML VIAL. IV ONE (23:00)
[2018-07-10] MEDS ORDERED: LIDOCAINE/PRILOCAINE TOPICAL CREAM 5GM TUBE. TP ONE ×2 (23:00→23:30)
--- NOTE | 2018-07-10 23:36 | EKG ---
[address] [address] Test Date: 2018-07-10 Test Time: 23:10:27 Pat Name: ERNA FRENCH Department: Room: Gender: F Machinery Mover: : 1940 Requested By: LUCIO WADSWORTH Order Number: [id number] Reading MD: Measurements Intervals [place] Rate: 105 P: 31 [place]: 122 QRS: 26 QRSD: 78 T: 38 QT: 324 QTc: 432 Interpretive Statements SINUS TACHYCARDIA LOW LIMB LEAD VOLTAGE NO SPECIFIC ECG ABNORMALITIES RI6.01 No previous ECG available for comparison
[2018-07-10 23:41] LABS: BGAS PH 7.41 (7.35-7.45)
--- NOTE | 2018-07-11 00:12 | RAD ---
Indication:Dyspnea. TECHNIQUE:Portable AP chest X-ray COMPARISON: 05/03/2018 FINDINGS: Interval placement of right chest wall Chemo-Port with its tip in the SVC. Heart is normal in size. Diffuse interstitial opacities with bibasilar patchy opacities and blunting of the CP angles. No pneumothorax. Visualized bony thorax within normal limits. IMPRESSION: Interstitial pulmonary edema with small bilateral pleural effusions. Electronically signed by: Kevin Peña DO (07/11/2018 12:09 AM) [facility]
[2018-07-11 00:42] LABS: BASO % 0 % (0-3); EOS % 1 % (0-3); HEMATOCRIT 26.4 % (36.0-47.0); HEMOGLOBIN 8.5 g/dL (12.0-15.5); LYMPH # 0.4 x10^3/uL (1.0-4.8); LYMPH % 12 % (24-48); MEAN CORPUSCULAR HEMOGLOBIN 26 pg (25-35); MEAN CORPUSCULAR HGB CONC 32 g/dL (31-37); MEAN CORPUSCULAR VOLUME 81 fL (79-100); MONO # 0.4 x10^3/uL (0.0-1.1); MONO % 13 % (0-9); NEUT # 2.3 x10^3uL (1.8-7.7); NEUT % 74 % (31-73); PLATELET COUNT 202 x10^3/uL (140-400); RED BLOOD COUNT 3.25 x10^6/uL (3.50-5.40); RED CELL DISTRIBUTION WIDTH 24.9 % (11.5-14.5); WHITE BLOOD COUNT 3.1 x10^3/uL (4.0-11.0)
[2018-07-11] MEDS ORDERED: ONDANSETRON PF 4 MG/2 ML VIAL. IV PRN (00:45)
[2018-07-11 00:50] LABS: ALBUMIN 2.7 g/dL (3.4-5.0); CALCIUM 8.5 mg/dL (8.5-10.1); CREATININE 0.8 mg/dL (0.6-1.0); DIRECT BILIRUBIN 0.1 mg/dL (0.0-0.2); GFR 84.4; POTASSIUM 3.6 mmol/L (3.5-5.1); TOTAL BILIRUBIN 0.3 mg/dL (0.2-1.0); TOTAL PROTEIN 6.3 g/dL (6.4-8.2)
[2018-07-11] MEDS ORDERED: FUROSEMIDE 40 MG/4 ML VIAL IVP ONE ×2 (02:00→06:45)
[2018-07-11] MEDS ORDERED: ENOXAPARIN 40 MG/0.4 ML SYRINGE. SQ SCH (02:18)
[2018-07-11] MEDS ORDERED: ENOXAPARIN ** NOTE DOSE ** SYRINGE SQ ONE ×2 (02:22→02:30)
[2018-07-11] MEDS ORDERED: CONTRAST GIVEN MC PRN (02:45)
[2018-07-11] MEDS ORDERED: IOHEXOL 350 MG/ML 100 ML VIAL. IV ONE (02:45)
[2018-07-11 03:20] LABS: BILIRUBIN,URINE NEG (NEG); CLARITY,URINE HAZY; COLOR,URINE STRAW; GLUCOSE,URINE 100 mg/dL (NEG)
[2018-07-11 03:21] LABS: BACTERIA,URINE FEW /HPF (0-FEW); NITRITE,URINE NEG (NEG); RBC,URINE OCC /HPF (0-2); SQUAMOUS EPITHELIAL CELL,UR MOD /LPF; UROBILINOGEN,URINE 0.2 mg/dL (0.2 mg/dL); WBC,URINE OCC /HPF (0-4)
--- NOTE | 2018-07-11 03:44 | RAD ---
PQRS Compliance statement: One or more of the following individualized dose reduction techniques were utilized for this examination: 1. Automated exposure control. 2. Adjustment of the mA and/or kV according to patient size. 3. Use of iterative reconstruction technique. Indication:Hypoxia. Elevated d-dimer. TECHNIQUE: CT angiogram of the chest with IV contrast with multiplanar MIP reformats. COMPARISON: None FINDINGS: Slightly suboptimal PE study due to contrast bolus timing. There are no central, segmental or proximal subsegmental filling defects in the pulmonary arteries. Dilatation of distal subsegmental pulmonary arteries is limited. Heart is normal in size. No pericardial effusion. Moderate bilateral pleural effusions, right more than left. No enlarged axillary lymph nodes. No mediastinal adenopathy. Calcified right hilar lymph node seen. Subpleural bilateral groundglass opacities are seen. Consolidation seen in the bilateral lower lobes and right middle lobe. Interlobular septal thickening seen. Visualized sections through the liver, spleen, pancreas, kidneys within normal limits. Mildly prominent main pancreatic duct. Right chest wall Chemo-Port is seen with its tip in the SVC. Multifocal osseous metastasis are seen in the thoracic spine and ribs. IMPRESSION: 1. Slightly suboptimal PE study due to contrast bolus timing. No central, segmental or proximal segmental PE. Evaluation of distal subsegmental pulmonary arteries is limited. 2. Moderate bilateral pleural effusions with consolidations in the bilateral lower lobes which may be secondary to passive atelectasis or pneumonia. 3. Multifocal groundglass opacities may be secondary to pulmonary edema or infection. 4. Multifocal osseous metastasis. Electronically signed by: Kevin Peña DO (07/11/2018 3:41 AM) [email or web address]
--- NOTE | 2018-07-11 04:33 | RAD ---
Ultrasound venous Doppler INDICATION:Shortness of breath, hypoxia. TECHNIQUE: Grayscale, color Doppler and spectral waveform ultrasound images of the bilateral lower extremities deep veins obtained. COMPARISON: None FINDINGS: The interrogated deep veins are compressible and demonstrate evidence of blood flow with normal respiratory variation and response to augmentation. Oval-shaped anechoic lesion in the left popliteal fossa measuring 2.3 x 3.6 x 0.6 cm likely Coppola's cyst. IMPRESSION: No sonographic evidence of acute DVT of the bilateral lower extremity deep veins. Electronically signed by: Kevin Peña DO (07/11/2018 4:30 AM) [email or web address]
--- NOTE | 2018-07-11 04:35 | RAD ---
Ultrasound venous Doppler INDICATION:Shortness of breath, hypoxia. History of breast cancer. TECHNIQUE: Grayscale, color Doppler and spectral waveform ultrasound images of the bilateral upper extremities deep veins obtained. COMPARISON: None FINDINGS: The interrogated deep veins are compressible and demonstrate evidence of blood flow with normal respiratory variation and response to augmentation. Enlarged 1.0 x 1.6 x 0.9 cm lymph node is seen in the left supraclavicular fossa. IMPRESSION: 1. No sonographic evidence of acute DVT of the bilateral upper extremity deep veins. 2. Mildly enlarged abnormal appearing left supraclavicular lymph node may represent metastasis. Electronically signed by: Kevin Peña DO (07/11/2018 4:32 AM) [facility]
[2018-07-11] MEDS: IPRATRPIUM/ALBUTEROL 0.5/2.5MG 3 ML NEBU. NEB SCH ×4 (06:06→21:10)
[2018-07-11 06:24] VITALS: BP 157/67
[2018-07-11 07:17] LABS: BGAS PH 7.38 (7.35-7.45)
[2018-07-11 07:25] LABS: BASO % 0 % (0-3); EOS % 0 % (0-3); HEMATOCRIT 28.7 % (36.0-47.0); HEMOGLOBIN 9.3 g/dL (12.0-15.5); LYMPH # 0.2 x10^3/uL (1.0-4.8); LYMPH % 8 % (24-48); MEAN CORPUSCULAR HEMOGLOBIN 26 pg (25-35); MEAN CORPUSCULAR HGB CONC 33 g/dL (31-37); MEAN CORPUSCULAR VOLUME 81 fL (79-100); MONO # 0.1 x10^3/uL (0.0-1.1); MONO % 4 % (0-9); NEUT # 2.3 x10^3uL (1.8-7.7); NEUT % 88 % (31-73); PLATELET COUNT 199 x10^3/uL (140-400); RED BLOOD COUNT 3.55 x10^6/uL (3.50-5.40); WHITE BLOOD COUNT 2.6 x10^3/uL (4.0-11.0)
[2018-07-11 07:36] LABS: CALCIUM 8.4 mg/dL (8.5-10.1); CREATININE 0.8 mg/dL (0.6-1.0); GFR 84.4; POTASSIUM 3.8 mmol/L (3.5-5.1)
[2018-07-11] MEDS ORDERED: DRON5CAP2 PO (08:07)
[2018-07-11] MEDS ORDERED: BUME2TAB PO (08:10)
[2018-07-11] MEDS ORDERED: POTA10TA10 PO (08:10)
[2018-07-11] MEDS ORDERED: INSU100I13 SQ (08:11)
[2018-07-11] MEDS ORDERED: INSU100C SQ (08:12)
[2018-07-11] MEDS ORDERED: IPRA3AMP29 NEB (08:13)
[2018-07-11] MEDS ORDERED: ONDA8TAB9 PO (08:14)
[2018-07-11] MEDS ORDERED: SIME80TA14 PO (08:15)
[2018-07-11] MEDS ORDERED: SPIR25TA5 PO (08:16)
[2018-07-11] MEDS ORDERED: BUDE10.2 IH (08:17)
[2018-07-11] MEDS ORDERED: PACL100V IV (08:19)
[2018-07-11 08:26] LABS: ANISOCYTOSIS MOD; PLT ESTIMATE ADEQUATE (ADEQUATE)
[2018-07-11 08:27] LABS: HYPOCHROMIA SLIGHT; MICROCYTOSIS SLIGHT; OVALOCYTES FEW; TEAR DROP CELLS OCC
[2018-07-11] MEDS: INSULIN LISPRO 300 UNITS/3 ML INSULN.PEN. SQ SCH ×3 (09:41→17:16)
[2018-07-11] MEDS ORDERED: ALBUTEROL SULFATE 2.5 MG/3 ML NEBU. IH PRN (13:15)
[2018-07-11] MEDS ORDERED: PACLITAXEL PROTEIN BOUND IV SCH (13:15)
[2018-07-11] MEDS ORDERED: SIMETHICONE 80 MG TAB.CHEW PO PRN (13:15)
[2018-07-11] MEDS ORDERED: ONDANSETRON ODT 4 MG TAB.RAPDIS PO PRN (13:30)
[2018-07-11] MEDS ORDERED: POLY17PO5 PO (13:36)
[2018-07-11] MEDS ORDERED: ZOLP10TA PO (13:36)
[2018-07-11] MEDS ORDERED: MESA1.2T PO (13:36)
[2018-07-11] MEDS ORDERED: ALBUTEROL SULFATE 2.5 MG/3 ML NEBU. NEB PRN (13:45)
[2018-07-11] MEDS ORDERED: ZOLPIDEM 5 MG TABLET. PO PRN (13:45)
[2018-07-11 13:46] VITALS: BP 156/59
[2018-07-11] MEDS: CHOLECALCIFEROL (VITAMIN D3) 1,000 UNIT TABLET PO SCH (14:00)
[2018-07-11] MEDS: LABETALOL HCL 200 MG TABLET PO SCH ×2 (14:00→20:44)
[2018-07-11] MEDS: MESALAMINE 1.2 GM TABLET.DR PO SCH (14:33)
[2018-07-11] MEDS: BUMETANIDE 1 MG TABLET PO SCH (14:33)
[2018-07-11] MEDS: SPIRONOLACTONE 25 MG TABLET PO SCH (14:33)
[2018-07-11] MEDS: POTASSIUM CHLORIDE 10 MEQ TABLET.ER. PO SCH (14:35)
[2018-07-11] MEDS: LOSARTAN 50 MG TABLET. PO SCH (14:35)
[2018-07-11] MEDS: CALCIUM CARB/VIT D3 500/200 TABLET PO SCH (14:35)
[2018-07-11] MEDS: MAGNESIUM OXIDE 400 MG TABLET PO SCH ×2 (14:35→20:43)
[2018-07-11] MEDS: ENOXAPARIN 40 MG/0.4 ML SYRINGE. SQ SCH (14:38)
[2018-07-11] MEDS: POLYETHYLENE GLYCOL 3350 17 GM PACKET. PO SCH (14:41)
--- NOTE | 2018-07-11 15:37 | HP ---
ADMIT DATE: 07/10/2018 HISTORY OF PRESENT ILLNESS: The patient is a 78-year-old -[place] female patient who presented to the Emergency Room yesterday with a complaint of hypoxia, shortness of breath, feeling dizzy and lightheaded. She also has according to her family, increased confusion. She apparently received her 4th chemotherapy yesterday at Dr. Gil's office and according to her family, the first 3 injections did well, but yesterday the patient was extremely dizzy, lightheaded, confused and therefore, she was seen by her primary care physician and was found to be hypoxic. Attempt was made for him to have oxygen delivered to her house, did not materialize. The patient was taken home and apparently there she was also found to be hypoxic with an oxygen saturation down to 79. She was apparently unable to sleep and therefore she was evaluated in the Emergency Room and has had extensive investigation including a chest x-ray, CT angio of the chest and lab work, and was admitted with acute hypoxic respiratory failure; metastatic breast cancer for which she received the first course of IV chemotherapy and she has bilateral pleural effusion, right more than left; pancytopenia induced by chemotherapy; malnutrition; type 2 diabetes and anemia. She was treated with IV antibiotic. She received also Lovenox and IV Lasix together with steroids and nebulized treatment. PAST MEDICAL HISTORY: Significant for breast cancer, which was diagnosed 17 years ago for which she underwent lumpectomy and radiation therapy, apparently it was in the year 1999 and 2017 she presented to Emergency Room of [facility] with back pain, was diagnosed with metastatic breast cancer. She underwent left axillary lymph node twice and underwent resection of sentinel lymph nodes in 2018. She received treatment with radiation twice and was followed by Dr. Gil and has been on oral chemotherapy in the form of Afinitor as well as exemestane. Her other medical problems include bronchial asthma, hypertension, hyperlipidemia, type 2 diabetes, and thyroid nodule. PAST SURGICAL HISTORY: Significant for bilateral cataract extraction, tonsillectomy, left-sided lumpectomy and lymph node resection and also thyroid nodule resection. ALLERGIES: She has no known drug allergies. FAMILY HISTORY: She has one brother who is still alive and has prostate cancer. Two brothers , one of prostate cancer and the other because of complication of diabetes. Her father at the age of 79 because of prostate cancer. Mother at the age of 44 because of stomach cancer. SOCIAL HISTORY: She is single. Quit smoking and drinking alcohol about 20 years ago. She has been working at [employer], quit working about 3 years ago. MEDICATIONS: She is currently on following medications: 1. 150 mg IV every Friday. 2. Ipratropium bromide. 3. DuoNeb 0.5/3 mg in 3 mL by nebulizer 4 times a day. 4. Albuterol sulfate every 6 hours. 5. Atorvastatin calcium 20 mg at bedtime. 6. Labetalol 200 mg twice a day. 7. Diltiazem 240 mg once a day. 8. Losartan potassium 50 mg daily. 9. She is on spironolactone 25 mg once a day. 10. Calcium carbonate with vitamin D3 one tablet daily. 11. Potassium chloride 10 mEq once a day. 12. Bumetanide 2 mg once a day. 13. She is on Symbicort 160/4.5 two puffs twice a day. 14. Montelukast 10 mg at bedtime. 15. Magnesium oxide 400 mg twice a day. 16. Simethicone 80 mg 3 times a day. 17. Ondansetron 8 mg p.o. every 8 hours. 18. She is on 5 mg capsule 3 times a day. 19. She is on Lantus SoloSTAR 22 units at bedtime. 20. Insulin lispro 13 units before meals. 21. Cholecalciferol for vitamin D3 2000 international units once a day. PHYSICAL EXAMINATION: GENERAL: On arrival to the Emergency Room, the patient looked somewhat pale, but no jaundice, cyanosis, or thyromegaly. No jugular venous distension. No lower limb edema. VITAL SIGNS: Her heart rate was 107, blood pressure was 141/61, temperature was 98.3, respiratory rate 20, and oxygen saturation was only 78% on room air that has improved to 97% on 2 liters oxygen. HEAD, EYES, EARS, NOSE, AND THROAT: Showed normocephalic, atraumatic. NECK: Supple. HEART: Showed normal first and second heart sounds. No gallop, rub or murmur. CHEST: Clear to auscultation. No crepitation or rhonchi. Dull percussion noted on both sides posteriorly, more so on the right than the left. I could not really appreciate any rhonchi. ABDOMEN: Slightly distended, soft, nontender. NEUROLOGIC: She is awake, alert, responding appropriately. All cranial nerves are intact. EXTREMITIES: She moves extremities without difficulty. LABORATORY DATA: While in the Emergency Room, she had lab work done, which showed a white cell count of 3100, hemoglobin 8.5, hematocrit 26.4, MCV 81 and platelet count of 202,000. Her chemistry showed a serum sodium of 139, potassium 3.6, chloride 104, bicarbonate 29, anion gap of 6, BUN 26, creatinine 0.8, estimated GFR was 54 mL per minute. Her glucose was 289, calcium was 8.5, magnesium 2. Total bilirubin, AST, ALT, alkaline phosphatase were normal. Total protein 6.3, albumin was 2.7. Her lipase was 207. TSH was normal at 2.601. Her blood gases showed a pH of 7.41, pCO2 of 39, pO2 of 47, bicarbonate 25, and oxygen saturation was 83% on FiO2 of 21%. Her D-dimer was at 4.6. However, INR and aPTT were normal. Urinalysis showed the urine was straw colored, hazy with a pH of 5.5, specific gravity 1.010. The urine was negative for protein, large amount of glucose, negative for ketones, blood, nitrite, bilirubin and leukocyte esterase. There are occasional rbc's, occasional wbc's, and few bacteria. ASSESSMENT AND PLAN: 1. In summary, this is a 78-year-old -[place] female. She was admitted with acute hypoxic respiratory failure. 2. Bilateral pleural effusion. 3. Questionable atelectasis versus new pneumonia. She obviously has metastatic breast cancer for which she is receiving chemotherapy and received every fourth course on Friday. She has elevated D-dimer; however, CT angio of the chest was negative for pulmonary emboli. She has type 2 diabetes, anemia, leukopenia. I will switch her ceftriaxone to IV Levaquin. We will continue all her other medications and monitor her closely. If her pleural effusion has increased, she might have to transfer to [place]. RENEE ROMAN MD DR: ANTOINE/mariela JOB#: [id number] / [id number]
[2018-07-11] MEDS ORDERED: ALBUTEROL SULFATE 2.5 MG/3 ML NEBU. NEB SCH (16:00)
[2018-07-11] MEDS: BUDESONIDE 0.5 MG/2 ML NEBU NEB SCH ×2 (16:06→21:10)
[2018-07-11] MEDS: DRONABINOL 2.5 MG CAPSULE PO SCH (17:14)
[2018-07-11 19:15] VITALS: BP 105/45
[2018-07-11] MEDS: ATORVASTATIN CALCIUM 20 MG TABLET PO SCH (20:43)
[2018-07-11] MEDS: MONTELUKAST 10 MG TABLET. PO SCH (20:44)
[2018-07-11 21:00] VITALS: BP 140/68
[2018-07-11] MEDS ORDERED: NON FORMULARY ITEM (Budesonide/Formoterol Fumarate (Symbicort 160-4.5 Mcg Inhaler) 2 PUFF) IH SCH (21:00)
[2018-07-11] MEDS ORDERED: INSULIN GLARGINE 300 UNITS/3 ML INSULN.PEN. SQ SCH (21:00)
[2018-07-11 22:00] VITALS: BP 141/54
[2018-07-11 23:00] VITALS: BP 125/50
[2018-07-12] VITALS (16 sets, daily range): BP systolic 97–162; BP diastolic 45–59
[2018-07-12] MEDS: IPRATRPIUM/ALBUTEROL 0.5/2.5MG 3 ML NEBU. NEB SCH ×4 (05:10→19:45)
[2018-07-12 06:55] LABS: BASO % 0 % (0-3); EOS % 0 % (0-3); HEMOGLOBIN 8.5 g/dL (12.0-15.5); LYMPH # 0.2 x10^3/uL (1.0-4.8); LYMPH % 6 % (24-48); MEAN CORPUSCULAR HEMOGLOBIN 26 pg (25-35); MEAN CORPUSCULAR HGB CONC 33 g/dL (31-37); MEAN CORPUSCULAR VOLUME 81 fL (79-100); MONO # 0.2 x10^3/uL (0.0-1.1); MONO % 7 % (0-9); NEUT # 2.7 x10^3uL (1.8-7.7); NEUT % 87 % (31-73); PLATELET COUNT 184 x10^3/uL (140-400); RED CELL DISTRIBUTION WIDTH 24.5 % (11.5-14.5); WHITE BLOOD COUNT 3.1 x10^3/uL (4.0-11.0)
[2018-07-12 07:00] LABS: ALBUMIN 2.3 g/dL (3.4-5.0); ALBUMIN/GLOBULIN RATIO 0.6 (1.0-1.7); CALCIUM 8.3 mg/dL (8.5-10.1); CREATININE 0.8 mg/dL (0.6-1.0); GFR 84.4; POTASSIUM 3.8 mmol/L (3.5-5.1); TOTAL BILIRUBIN 0.2 mg/dL (0.2-1.0); TOTAL PROTEIN 5.9 g/dL (6.4-8.2)
[2018-07-12] MEDS: BUMETANIDE 1 MG TABLET PO SCH (08:08)
[2018-07-12] MEDS: POTASSIUM CHLORIDE 10 MEQ TABLET.ER. PO SCH (08:08)
[2018-07-12] MEDS: MESALAMINE 1.2 GM TABLET.DR PO SCH (08:08)
[2018-07-12] MEDS: LABETALOL HCL 200 MG TABLET PO SCH ×2 (08:09→20:45)
[2018-07-12] MEDS: MAGNESIUM OXIDE 400 MG TABLET PO SCH ×2 (08:09→20:44)
[2018-07-12] MEDS: SPIRONOLACTONE 25 MG TABLET PO SCH (08:09)
[2018-07-12] MEDS: CHOLECALCIFEROL (VITAMIN D3) 1,000 UNIT TABLET PO SCH (08:09)
[2018-07-12] MEDS: POLYETHYLENE GLYCOL 3350 17 GM PACKET. PO SCH (08:09)
[2018-07-12] MEDS: LOSARTAN 50 MG TABLET. PO SCH (08:10)
[2018-07-12] MEDS: CALCIUM CARB/VIT D3 500/200 TABLET PO SCH (08:10)
[2018-07-12] MEDS: INSULIN LISPRO 300 UNITS/3 ML INSULN.PEN. SQ SCH ×3 (08:10→17:03)
[2018-07-12] MEDS: BUDESONIDE 0.5 MG/2 ML NEBU NEB SCH ×2 (10:24→19:46)
[2018-07-12] MEDS: DRONABINOL 2.5 MG CAPSULE PO SCH ×2 (11:51→17:00)
[2018-07-12] MEDS: ENOXAPARIN 40 MG/0.4 ML SYRINGE. SQ SCH (14:36)
[2018-07-12] MEDS: ATORVASTATIN CALCIUM 20 MG TABLET PO SCH (20:44)
[2018-07-12] MEDS: MONTELUKAST 10 MG TABLET. PO SCH (20:45)
[2018-07-12] MEDS: INSULIN GLARGINE 300 UNITS/3 ML INSULN.PEN. SQ SCH (20:52)
[2018-07-13] VITALS (14 sets, daily range): BP systolic 115–162; BP diastolic 47–70
[2018-07-13] MEDS: IPRATRPIUM/ALBUTEROL 0.5/2.5MG 3 ML NEBU. NEB SCH ×4 (04:56→20:03)
[2018-07-13] MEDS: CALCIUM CARB/VIT D3 500/200 TABLET PO SCH (07:38)
[2018-07-13] MEDS: CHOLECALCIFEROL (VITAMIN D3) 1,000 UNIT TABLET PO SCH (07:38)
[2018-07-13] MEDS: BUMETANIDE 1 MG TABLET PO SCH (07:38)
[2018-07-13] MEDS: DRONABINOL 2.5 MG CAPSULE PO SCH ×2 (07:38→17:19)
[2018-07-13] MEDS: POLYETHYLENE GLYCOL 3350 17 GM PACKET. PO SCH (07:38)
[2018-07-13] MEDS: SPIRONOLACTONE 25 MG TABLET PO SCH (07:39)
[2018-07-13] MEDS: LOSARTAN 50 MG TABLET. PO SCH (07:39)
[2018-07-13] MEDS: POTASSIUM CHLORIDE 10 MEQ TABLET.ER. PO SCH (07:39)
[2018-07-13] MEDS: MAGNESIUM OXIDE 400 MG TABLET PO SCH ×2 (07:39→21:12)
[2018-07-13] MEDS: MESALAMINE 1.2 GM TABLET.DR PO SCH (07:40)
[2018-07-13] MEDS: LABETALOL HCL 200 MG TABLET PO SCH ×2 (07:41→21:13)
[2018-07-13] MEDS: INSULIN LISPRO 300 UNITS/3 ML INSULN.PEN. SQ SCH ×3 (07:45→17:18)
[2018-07-13] MEDS ORDERED: LIDOCAINE 1% Multi-Dose 20 ML VIAL. INJ ONE (09:00)
[2018-07-13] MEDS: BUDESONIDE 0.5 MG/2 ML NEBU NEB SCH ×2 (09:24→20:03)
[2018-07-13 10:45] LABS: BASO % 1 % (0-3); EOS # 0.1 x10^3/uL (0.0-0.7); EOS % 3 % (0-3); HEMATOCRIT 27.8 % (36.0-47.0); LYMPH # 0.3 x10^3/uL (1.0-4.8); LYMPH % 9 % (24-48); MEAN CORPUSCULAR HEMOGLOBIN 26 pg (25-35); MEAN CORPUSCULAR HGB CONC 32 g/dL (31-37); MEAN CORPUSCULAR VOLUME 81 fL (79-100); MONO # 0.1 x10^3/uL (0.0-1.1); MONO % 3 % (0-9); NEUT # 2.6 x10^3uL (1.8-7.7); NEUT % 86 % (31-73); PLATELET COUNT 204 x10^3/uL (140-400); RED BLOOD COUNT 3.42 x10^6/uL (3.50-5.40); RED CELL DISTRIBUTION WIDTH 24.6 % (11.5-14.5)
[2018-07-13 10:53] LABS: ALBUMIN 2.5 g/dL (3.4-5.0); ALBUMIN/GLOBULIN RATIO 0.7 (1.0-1.7); CALCIUM 8.6 mg/dL (8.5-10.1); CREATININE 0.8 mg/dL (0.6-1.0); GFR 84.4; POTASSIUM 3.9 mmol/L (3.5-5.1); TOTAL BILIRUBIN 0.4 mg/dL (0.2-1.0); TOTAL PROTEIN 6.1 g/dL (6.4-8.2)
--- NOTE | 2018-07-13 11:42 | RAD ---
Ultrasound guided right thoracentesis 07/13/2018 Clinical History: Shortness of breath and hypoxia. Large right pleural effusion. Technique: After the risks and benefits of the procedure were explained to the patient, written informed consent was obtained. Real-time scanning of the posterior aspect of the right pleural space was performed. The patient has a large sized rightpleural effusion. A huong was placed on the skin surface corresponding to the fluid. This area was prepped and draped in sterile fashion. 1% lidocaine was used as a local anesthetic. A 6 Lithuanian catheter was advanced over a needle into the posterior right pleural space. The needle was removed and 1000 mL of serous pleural fluid was then removed. The fluid was sent to the laboratory for the requested studies. Following this the catheter was removed and hemostasis achieved at the puncture site. A sterile bandage was placed on the skin puncture site. The patient tolerated the procedure well and there were no immediate complications. Impression: Technically successful ultrasound guided right thoracentesis. Electronically signed by: Timothy Mckeon MD (07/13/2018 11:38 AM) [id number]
[2018-07-13] MEDS: ENOXAPARIN 40 MG/0.4 ML SYRINGE. SQ SCH (15:22)
--- NOTE | 2018-07-13 15:22 | RAD ---
EXAM: CHEST 1 VIEW. HISTORY: Chest pain after thoracentesis. COMPARISON: 07/10/2018. FINDINGS: A frontal view of the chest is obtained. The right pleural effusion is now small. The left remains small to moderate. There is no pneumothorax. Bibasilar atelectasis or infiltrate persist. Calcified mediastinal lymph nodes are likely secondary to old granulomatous disease. There are atherosclerotic calcifications of the aorta. There is no pneumothorax or pleural effusion. The heart is not enlarged. A right-sided port catheter has its tip in the superior vena cava. Midthoracic compression deformities are again noted. IMPRESSION: 1. The right pleural effusion is now small. No pneumothorax. 2. Stable small to moderate left pleural effusion and bibasilar atelectasis or infiltrate. Electronically signed by: Phu Pierson MD (07/13/2018 3:06 PM) [facility]
[2018-07-13] MEDS: MONTELUKAST 10 MG TABLET. PO SCH (21:12)
[2018-07-13] MEDS: ATORVASTATIN CALCIUM 20 MG TABLET PO SCH (21:12)
[2018-07-13] MEDS: INSULIN GLARGINE 300 UNITS/3 ML INSULN.PEN. SQ SCH (21:12)
[2018-07-13] MEDS: ACETAMINOPHEN 325 MG TABLET PO PRN (21:40)
--- NOTE | 2018-07-14 04:05 | PN ---
DATE: 07/13/2018 SUBJECTIVE: The patient is sitting comfortably in her chair, eating her lunch comfortably, in no apparent distress. Apparently, she underwent right-sided thoracentesis and about 1000 mL of serous pleural fluid was removed. The fluid was sent to the labs for requested studies. The catheter was removed and hemostasis was achieved at the puncture site. When I saw her, she was complaining of pain that is tolerable in the right side. She does not want any pain medication for that. PHYSICAL EXAMINATION: GENERAL: When I examined her, she looked pale, cachectic, but not jaundice, cyanosed or thyromegaly. No jugular venous distension. No lymph edema. VITAL SIGNS: Her heart rate was 94, blood pressure 130/56, temperature was 98.5, respiratory rate was 20, and oxygen saturation was 97% on 2 liters oxygen. HEAD, EYES, EARS, NOSE AND THROAT: Showed normocephalic, atraumatic. NECK: Supple. HEART: Showed normal first and second heart sounds with no gallop, rub or murmur. CHEST: Showed central trachea equal bilateral expansion anteriorly with vesicular breath sounds. No crepitation or rhonchi. Posteriorly the chest expansion much better on the right side after the thoracentesis. She has continued to have dull percussion noted and absent breath sounds posteriorly. ABDOMEN: Slightly distended, soft, nontender. NEUROLOGIC: She was awake, alert, responding appropriately. All cranial nerves intact. She moves extremities without difficulty. She ambulates with a walker. Her intake over the last 24 hours was 300, output was 3575. LABORATORY DATA: Her lab work this morning showed a white cell count of 3000, hemoglobin 9, hematocrit 27, MCV 81, and platelet count of 204,000. Her chemistry showed a serum sodium 146, potassium 3.9, chloride 107, bicarbonate 33, anion gap of 6, BUN 27, creatinine 0.8, estimated GFR was 84 mL per minute. Her glucose was 131, calcium was 8.6. Total bilirubin, AST, ALT, alkaline phosphatase were normal. Total protein was 6.1, albumin was 2.5. ASSESSMENT: 1. Acute hypoxic respiratory failure, likely multifactorial including: a. Bilateral pleural effusion. b. Atelectasis. c. Pneumonia. 2. Metastatic breast cancer for which she is receiving chemotherapy and received her fourth course last Friday. 3. Her D-dimer was elevated; however, CT angio chest was negative for pulmonary emboli. 4. Type 2 diabetes mellitus. 5. Anemia as well as leukopenia. PLAN: To continue with IV Levaquin. Continue with all her other medications. We will start physical and occupational therapy and hopefully we can discharge her home tomorrow. RENEE ROMAN MD DR: ANTOINE/mariela JOB#: [id number] / [id number]
[2018-07-14 05:51] VITALS: BP 128/53
[2018-07-14] MEDS: IPRATRPIUM/ALBUTEROL 0.5/2.5MG 3 ML NEBU. NEB SCH ×4 (05:52→20:10)
[2018-07-14] MEDS: BUDESONIDE 0.5 MG/2 ML NEBU NEB SCH ×2 (05:52→20:10)
[2018-07-14 06:24] LABS: CALCIUM 8.2 mg/dL (8.5-10.1); CREATININE 0.7 mg/dL (0.6-1.0); GFR 98.4; POTASSIUM 3.7 mmol/L (3.5-5.1)
[2018-07-14] MEDS: INSULIN LISPRO 300 UNITS/3 ML INSULN.PEN. SQ SCH ×3 (07:30→16:59)
[2018-07-14] MEDS: POLYETHYLENE GLYCOL 3350 17 GM PACKET. PO SCH (07:45)
[2018-07-14] MEDS: CHOLECALCIFEROL (VITAMIN D3) 1,000 UNIT TABLET PO SCH (07:45)
[2018-07-14] MEDS: DRONABINOL 2.5 MG CAPSULE PO SCH ×2 (07:45→16:37)
[2018-07-14] MEDS: BUMETANIDE 1 MG TABLET PO SCH (07:46)
[2018-07-14] MEDS: SPIRONOLACTONE 25 MG TABLET PO SCH (07:46)
[2018-07-14] MEDS: POTASSIUM CHLORIDE 10 MEQ TABLET.ER. PO SCH (07:46)
[2018-07-14] MEDS: MAGNESIUM OXIDE 400 MG TABLET PO SCH ×2 (07:46→20:46)
[2018-07-14] MEDS: LOSARTAN 50 MG TABLET. PO SCH (07:46)
[2018-07-14] MEDS: CALCIUM CARB/VIT D3 500/200 TABLET PO SCH (07:47)
[2018-07-14] MEDS: MESALAMINE 1.2 GM TABLET.DR PO SCH (07:48)
[2018-07-14] MEDS: LABETALOL HCL 200 MG TABLET PO SCH ×2 (07:48→20:46)
[2018-07-14 08:00] VITALS: BP 140/54
[2018-07-14 08:29] LABS: BASO % 0 % (0-3); EOS # 0.1 x10^3/uL (0.0-0.7); EOS % 3 % (0-3); HEMATOCRIT 24.3 % (36.0-47.0); HEMOGLOBIN 7.8 g/dL (12.0-15.5); LYMPH # 0.3 x10^3/uL (1.0-4.8); LYMPH % 12 % (24-48); MEAN CORPUSCULAR HEMOGLOBIN 27 pg (25-35); MEAN CORPUSCULAR HGB CONC 32 g/dL (31-37); MEAN CORPUSCULAR VOLUME 82 fL (79-100); MONO # 0.1 x10^3/uL (0.0-1.1); MONO % 3 % (0-9); NEUT % 81 % (31-73); PLATELET COUNT 168 x10^3/uL (140-400); RED BLOOD COUNT 2.94 x10^6/uL (3.50-5.40); RED CELL DISTRIBUTION WIDTH 25.3 % (11.5-14.5); WHITE BLOOD COUNT 2.5 x10^3/uL (4.0-11.0)
[2018-07-14 10:30] VITALS: BP 145/55
--- NOTE | 2018-07-14 14:56 | RAD ---
EXAM: CHEST 1 VIEW History: Shortness of breath COMPARISON: 07/13/2018 TECHNIQUE: Single portable radiograph of the chest FINDINGS: Low lung volumes and technique accentuates heart size and pulmonary vascularity. Mild cardiomegaly. Diffuse prominent appearing bilateral lung markings likely congestive changes. Bibasilar lung airspace opacities likely atelectasis or infiltrates and small bilateral pleural effusions. Right-sided Port-A-Cath is unchanged. IMPRESSION: 1. Moderate congestive changes. 2. Bibasilar lung airspace opacities likely atelectasis or infiltrates with small bilateral pleural effusions. Electronically signed by: Gabino Ya MD (07/14/2018 2:53 PM) [place] [id number]
[2018-07-14] MEDS: ENOXAPARIN 40 MG/0.4 ML SYRINGE. SQ SCH (15:24)
[2018-07-14 16:23] VITALS: BP 124/46
[2018-07-14 19:16] VITALS: BP 136/50
[2018-07-14] MEDS: INSULIN GLARGINE 300 UNITS/3 ML INSULN.PEN. SQ SCH (20:45)
[2018-07-14] MEDS: MONTELUKAST 10 MG TABLET. PO SCH (20:46)
[2018-07-14] MEDS: ATORVASTATIN CALCIUM 20 MG TABLET PO SCH (20:46)
[2018-07-14 23:13] VITALS: BP 118/49
--- NOTE | 2018-07-15 04:16 | PN ---
DATE: 07/14/2018 SUBJECTIVE: The patient is resting slightly propped up in bed, able to maintain her oxygen saturation at 95% on room air. With minimal exertion, she continued to desaturate down to the 70s. She continued to have tachycardia and I did speak with Dr. Gil about her in the office. They stated that the patient has stage IV breast cancer and that the effusions are new, the first time she had thoracentesis was in May. We did actually drain her right hemithorax and he recommended to drain the other side also as she continued to desaturate and also tachycardic and short of breath on exertion. They also stated that the patient and her family knew that she has stage IV breast cancer. OBJECTIVE: GENERAL: When I examined her this afternoon, she was resting slightly propped up in bed in no apparent respiratory distress; however, even at rest, her heart rate was high, goes up to 110-115. She was pale, cachectic, but no jaundice, cyanosis, or thyromegaly. No jugular venous distension. No lower limb edema. VITAL SIGNS: Her heart rate was 106, blood pressure 145/55, temperature was 97.8, respiratory rate was 18, and oxygen saturation was 94% on room air. HEAD, EYES, EARS, NOSE, AND THROAT: Showed normocephalic, atraumatic. NECK: Supple. HEART: Showed normal first and second heart sounds. No gallop, rub, or murmur. CHEST: Showed central trachea, equal air entry on chest expansion anteriorly. She had dull percussion noted and absent breath sounds more so on the left side than the right. We could not appreciate any crepitation or rhonchi. ABDOMEN: Distended, soft, nontender. No guarding or rigidity. No organomegaly. All hernial orifices were intact. Bowel sounds normal. NEUROLOGIC: She was awake, alert, responding appropriately. All cranial nerves were intact. She moved extremities without difficulty. She did ambulate with a walker. Unfortunately, she continued to desaturate dramatically with minimal exertion and required oxygen on ambulation. LABORATORY DATA: Her lab work showed her white cell count was 2500, hemoglobin 7.8, hematocrit 24, MCV 82, and platelet count of 168,000. Her chemistry showed serum sodium 146, potassium 3.7, chloride 108, bicarbonate 35, anion gap of 3, BUN 26, creatinine 0.7, estimated GFR was 98 mL per minute. Her glucose was 87, calcium was 8.2. Her pleural effusion seemed to be exudative in nature, probably could be malignant. PLAN: My plan is obviously to continue with her antibiotics in the form of Levaquin. Continue DVT prophylaxis. Continue with bronchodilators. Continue her diuretics and blood pressure medication and I have repeated her chest x-ray today. I have also consulted the radiologist to drain the left hemithorax and hopefully we will arrange for her to have home oxygen and can be discharged home tomorrow. RENEE ROMAN MD DR: ANTOINE/mariela JOB#: [id number] / [id number]
[2018-07-15] MEDS: BUDESONIDE 0.5 MG/2 ML NEBU NEB SCH ×2 (04:49→20:03)
[2018-07-15] MEDS: IPRATRPIUM/ALBUTEROL 0.5/2.5MG 3 ML NEBU. NEB SCH ×4 (04:49→20:02)
[2018-07-15 05:02] VITALS: BP 114/47
[2018-07-15 06:40] LABS: BASO % 0 % (0-3); EOS # 0.1 x10^3/uL (0.0-0.7); EOS % 3 % (0-3); HEMATOCRIT 22.9 % (36.0-47.0); HEMOGLOBIN 7.6 g/dL (12.0-15.5); LYMPH # 0.3 x10^3/uL (1.0-4.8); LYMPH % 13 % (24-48); MEAN CORPUSCULAR HEMOGLOBIN 27 pg (25-35); MEAN CORPUSCULAR HGB CONC 33 g/dL (31-37); MEAN CORPUSCULAR VOLUME 80 fL (79-100); MONO # 0.1 x10^3/uL (0.0-1.1); MONO % 4 % (0-9); NEUT # 1.6 x10^3uL (1.8-7.7); NEUT % 80 % (31-73); PLATELET COUNT 174 x10^3/uL (140-400); RED BLOOD COUNT 2.85 x10^6/uL (3.50-5.40)
[2018-07-15 06:44] LABS: ALBUMIN 2.1 g/dL (3.4-5.0); ALBUMIN/GLOBULIN RATIO 0.7 (1.0-1.7); CALCIUM 8.2 mg/dL (8.5-10.1); CREATININE 0.6 mg/dL (0.6-1.0); GFR 117.6; POTASSIUM 3.7 mmol/L (3.5-5.1); TOTAL BILIRUBIN 0.3 mg/dL (0.2-1.0); TOTAL PROTEIN 5.1 g/dL (6.4-8.2)
[2018-07-15] MEDS: SPIRONOLACTONE 25 MG TABLET PO SCH (08:56)
[2018-07-15] MEDS: BUMETANIDE 1 MG TABLET PO SCH (08:56)
[2018-07-15] MEDS: MESALAMINE 1.2 GM TABLET.DR PO SCH (08:56)
[2018-07-15] MEDS: MAGNESIUM OXIDE 400 MG TABLET PO SCH ×2 (08:56→21:13)
[2018-07-15] MEDS: LOSARTAN 50 MG TABLET. PO SCH (08:56)
[2018-07-15] MEDS: CHOLECALCIFEROL (VITAMIN D3) 1,000 UNIT TABLET PO SCH (08:56)
[2018-07-15] MEDS: CALCIUM CARB/VIT D3 500/200 TABLET PO SCH (08:56)
[2018-07-15] MEDS: POLYETHYLENE GLYCOL 3350 17 GM PACKET. PO SCH (08:57)
[2018-07-15] MEDS: POTASSIUM CHLORIDE 10 MEQ TABLET.ER. PO SCH (08:57)
[2018-07-15] MEDS: LABETALOL HCL 200 MG TABLET PO SCH ×2 (08:57→21:13)
[2018-07-15] MEDS: INSULIN LISPRO 300 UNITS/3 ML INSULN.PEN. SQ SCH ×3 (09:00→18:00)
[2018-07-15 10:01] LABS: % BANDS 7 % (0-9); % BASOS 0 % (0-3); % EOS 1 % (0-5); % LYMPHS 12 % (24-48); % MONOS 0 % (0-10); % SEGS 79 % (35-66); PLT ESTIMATE ADEQUATE (ADEQUATE)
[2018-07-15 10:02] LABS: ANISOCYTOSIS MOD; MICROCYTOSIS SLIGHT; TEAR DROP CELLS OCC
[2018-07-15 10:03] LABS: SCHISTOCYTES OCC
[2018-07-15] MEDS: DRONABINOL 2.5 MG CAPSULE PO SCH ×2 (12:11→17:59)
[2018-07-15 12:41] VITALS: BP 144/53
[2018-07-15] MEDS: ENOXAPARIN 40 MG/0.4 ML SYRINGE. SQ SCH (14:37)
[2018-07-15 16:04] VITALS: BP 110/44
[2018-07-15] MEDS: ATORVASTATIN CALCIUM 20 MG TABLET PO SCH (21:13)
[2018-07-15] MEDS: MONTELUKAST 10 MG TABLET. PO SCH (21:13)
[2018-07-15] MEDS: ACETAMINOPHEN 325 MG TABLET PO PRN (21:13)
[2018-07-15] MEDS: INSULIN GLARGINE 300 UNITS/3 ML INSULN.PEN. SQ SCH (21:14)
[2018-07-15 21:35] VITALS: BP 111/53
[2018-07-16 00:01] VITALS: BP 118/48
--- NOTE | 2018-07-16 01:27 | PN ---
DATE: 07/15/2018 SUBJECTIVE: The patient is resting slightly propped up in bed, fairly comfortable. She continued to have some shortness of breath, although at rest, her oxygen saturation is 95% on room air. OBJECTIVE: GENERAL: When I examined her, she was pale, cachectic, but no jaundice, cyanosis, or thyromegaly. No jugular venous distension. No lower limb edema; however, her left upper extremity is more swollen than the right and apparently she has had a lymphadenectomy from her left axillary area and has had intermittent swelling of her left upper extremity. The venous Doppler ultrasound showed no evidence of DVT of the bilateral upper extremity deep veins. VITAL SIGNS: Her heart rate was 104, blood pressure 110/44, temperature was 98.6, respiratory rate was 18 and oxygen saturation was 95% on room air. HEAD, EYES, EARS, NOSE AND THROAT: Showed normocephalic, atraumatic. NECK: Supple. HEART: Showed normal first and second heart sounds with no gallop, rub or murmur. CHEST: Shows central trachea, equal bilateral chest expansion, air entry, vesicular breath sounds. No crepitation or rhonchi anteriorly. The patient has dull percussion noted and absent breath sounds in the left side posteriorly, more than the right. ABDOMEN: Slightly distended, soft with positive shifting dullness. NEUROLOGIC: She is awake, alert, responding appropriately. All cranial nerves intact. She moves extremities without difficulty. Her intake over the last 24 hours was 800, output was 675. LABORATORY DATA: As of this morning, her serum sodium was 146, potassium 3.7, chloride 108, bicarbonate 34, anion gap of 4, BUN 20, creatinine 0.6. Estimated GFR was 117 mL per minute. Her glucose was 94, calcium was 8.2. Total bilirubin, AST, ALT, alkaline phosphatase were normal. Total protein was 5.1, albumin was 2.1. Her white cell count was 2000. Hemoglobin 7.6, hematocrit 22.9, MCV 80 and platelet count of 174,000. ASSESSMENT: 1. Acute hypoxic respiratory failure, multifactorial including bilateral pleural effusion, atelectasis and pneumonia. 2. Stage 4 breast cancer with malignant bilateral pleural effusion. 3. Her D-dimer was elevated; however, CT angio of the chest was negative for pulmonary embolism and bilateral upper and lower extremity venous Doppler ultrasound was negative for deep vein thrombosis. 4. Type 2 diabetes mellitus, anemia as well as leukopenia. PLAN: Continue with IV Levaquin. Continue with all her other medications. Continue DVT prophylaxis. Continue with physical and occupational therapy. We will arrange for her to have thoracentesis of her left hemithorax, and if no complications, she can be discharged home. RENEE ROMAN MD DR: ANTOINE/mariela JOB#: [id number] / [id number]
[2018-07-16 04:40] VITALS: BP 115/73
[2018-07-16] MEDS: BUDESONIDE 0.5 MG/2 ML NEBU NEB SCH ×2 (05:03→09:12)
[2018-07-16] MEDS: IPRATRPIUM/ALBUTEROL 0.5/2.5MG 3 ML NEBU. NEB SCH ×3 (05:04→15:23)
[2018-07-16] MEDS: INSULIN LISPRO 300 UNITS/3 ML INSULN.PEN. SQ SCH ×3 (07:30→17:19)
[2018-07-16] MEDS: CHOLECALCIFEROL (VITAMIN D3) 1,000 UNIT TABLET PO SCH (09:05)
[2018-07-16] MEDS: CALCIUM CARB/VIT D3 500/200 TABLET PO SCH (09:05)
[2018-07-16] MEDS: BUMETANIDE 1 MG TABLET PO SCH (09:05)
[2018-07-16] MEDS: POLYETHYLENE GLYCOL 3350 17 GM PACKET. PO SCH (09:06)
[2018-07-16] MEDS: POTASSIUM CHLORIDE 10 MEQ TABLET.ER. PO SCH (09:06)
[2018-07-16] MEDS: LABETALOL HCL 200 MG TABLET PO SCH (09:07)
[2018-07-16] MEDS: LOSARTAN 50 MG TABLET. PO SCH (09:08)
[2018-07-16] MEDS: SPIRONOLACTONE 25 MG TABLET PO SCH (09:09)
[2018-07-16] MEDS: MESALAMINE 1.2 GM TABLET.DR PO SCH (09:10)
[2018-07-16] MEDS: MAGNESIUM OXIDE 400 MG TABLET PO SCH (09:10)
--- NOTE | 2018-07-16 09:53 | RAD ---
Ultrasound guided thoracentesis 07/16/2018 Clinical History: Moderate to large sized left pleural effusion. Technique: After the risks and benefits of the procedure were explained the patient, written informed consent was obtained. Real-time scanning of the posterior aspect of the left pleural space was performed. The patient has a moderate to large sized leftpleural effusion. A huong was placed in the skin surface corresponding to the fluid. This area was prepped and draped in sterile fashion. 1% lidocaine was used as a local anesthetic. A 6 Kuwaiti thoracentesis catheter was advanced over a needle into the posterior left pleural space. The needle was removed and 750 cc of serous pleural fluid was then removed. Following this the catheter was removed and hemostasis achieved at the puncture site. A sterile bandage was placed on the skin puncture site. The patient tolerated the procedure well and there were no immediate complications. Impression: Technically successful ultrasound guided left thoracentesis. Electronically signed by: Timothy Mckeon MD (07/16/2018 9:50 AM) [id number]
[2018-07-16 10:40] VITALS: BP 127/53
[2018-07-16] MEDS: ACETAMINOPHEN 325 MG TABLET PO PRN (10:46)
[2018-07-16] MEDS: DRONABINOL 2.5 MG CAPSULE PO SCH ×2 (12:05→17:19)
[2018-07-16] MEDS: ENOXAPARIN 40 MG/0.4 ML SYRINGE. SQ SCH (12:09)
--- NOTE | 2018-07-16 16:12 | RAD ---
CHEST AP ONLY Clinical indications: Status post thoracentesis COMPARISON: July 14, 2018. Findings: Previously seen left-sided pleural effusion is now small with mild blunting of the left costophrenic angle after thoracentesis. There is improved aeration of the left lung base with persistent mild atelectasis of the left lung base. Small to moderate size right-sided pleural effusion and associated compressive atelectasis or infiltrate of the right lung base is unchanged. No pneumothorax is seen. Granuloma of the right midlung zone is again evident. Right IJ Port-A-Cath is unchanged in position. The heart size and mediastinum and pulmonary vasculature and both castillo are stable. There is a compression deformity of the left lateral aspect of the superior endplate of a mid thoracic vertebral body which is unchanged. Old healed left posterior fourth rib fracture is seen. IMPRESSION: Significant improvement of left-sided pleural effusion with improved aeration of the left lung base after a thoracentesis. No pneumothorax is seen. Electronically signed by: Zafar Su MD (07/16/2018 4:10 PM) [id number]
[2018-07-16 16:59] VITALS: BP 129/56
[2018-07-16 18:05] VITALS: BP 142/49
--- NOTE | 2018-07-16 20:13 | DS ---
DATE OF DISCHARGE: 07/16/2018 HOSPITAL COURSE: The patient was admitted with acute hypoxic respiratory failure and further investigation showed that she has large bilateral malignant pleural effusion, atelectasis and possible lung infiltrate. We treated her with IV antibiotics. The right-sided pleural effusion was drained and about 1000 mL of straw-colored fluid was removed and she continued to be on Lasix and spironolactone together with bronchodilator and IV Levaquin. Today, about 700 mL of serous fluid was removed from the left hemothorax. Her left lung has completely expanded. She was resting flat, comfortably in bed, in no apparent distress. Even with exertion, she is maintaining her oxygen saturation more than 90% and a decision was made to discharge her home to follow with her primary care physician as well as Dr. Gil. PHYSICAL EXAMINATION: GENERAL: When I saw her this afternoon, she looked well and was clearly in no apparent distress. She was pale, no jaundice, cyanosis or thyromegaly. No jugular venous distension. No lower limb edema. VITAL SIGNS: Her heart rate was 98, blood pressure was 129/56, temperature was 97.9, respiratory rate was 16, and oxygen saturation was 98% on room air. HEAD, EYES, EARS, NOSE AND THROAT: Showed normocephalic, atraumatic. NECK: Supple. HEART: Showed normal first and second heart sounds with no gallop, rub or murmur. CHEST: Clear to auscultation. No crepitation or rhonchi. ABDOMEN: Distended, soft, nontender. NEUROLOGIC: She is awake, alert, responding appropriately. All cranial nerves intact. She moves extremities without difficulty. She ambulates with a walker. Her intake over the last 24 hours was 930, output was 900 as of this morning. LABORATORY DATA: Her most recent lab work showed a serum sodium 146, potassium 3.7, chloride 108, bicarbonate 34, anion gap of 4, BUN 20, creatinine 0.6, estimated GFR was 117 mL per minute. Her glucose was 94, calcium was 8.2, magnesium was 2.1. Total bilirubin, AST, ALT, alkaline phosphatase were normal. Total protein was 5.1, albumin was 2.1. White cell count was 2000, hemoglobin was 7.6, hematocrit 22.9, MCV 80 and platelet count of 174,000. Her blood and pleural fluid cultures are so far negative. DISCHARGE MEDICATIONS: The patient was discharged home to continue on albuterol sulfate for ProAir 2 puffs every 6 hours, atorvastatin calcium 20 mg at bedtime, Symbicort 2 puffs twice a day, bumetanide 2 mg once a day, calcium carbonate with vitamin D one tablet once a day, cholecalciferol 2000 International Units daily, diltiazem 240 mg daily, dronabinol 5 mg three times a day, Lantus insulin 22 units at bedtime and Humalog insulin 13 units before meals, ipratropium bromide, albuterol sulfate for DuoNeb 3 mL by nebulizer 4 times a day, labetalol 200 mg three times a day, losartan potassium 50 mg once a day, magnesium oxide 400 mg twice a day, mesalamine 1.2 grams p.o. daily. She will be discharged also on montelukast or Singulair 10 mg at bedtime, ondansetron 8 mg every 8 hours, paclitaxel protein bound or Abraxane 150 mg IV every Friday, polyethylene glycol 17 grams daily, potassium chloride 10 mEq daily, simethicone 80 mg three times a day, spironolactone 25 mg once a day and Ambien 10 mg at bedtime. FINAL DISCHARGE DIAGNOSES: 1. Acute hypoxic respiratory failure, multifactorial including bilateral pleural effusion, atelectasis and pneumonia. 2. Stage IV breast cancer with malignant bilateral pleural effusion. 3. Her D-dimer was elevated; however, CT angio of the chest was negative for pulmonary embolism and bilateral upper and lower extremity venous ultrasound were negative for deep vein thrombosis. 4. Type 2 diabetes mellitus. 5. Anemia. 6. Leukopenia. 7. Severe protein-calorie malnutrition. RENEE ROMAN MD DR: ANTOINE/mariela JOB#: [id number] / [id number]
== END 2018-07-16 19:22 | disposition home health service (06) | DRG 597 ==
LOC: ER 22:34 → ICU 23:00
PROVIDERS: ADMIT Internal Medicine; ATTEND Internal Medicine
PROC: 0W993ZZ Drainage of Right Pleural Cavity, Percutaneous Approach (ICD-10-PCS; principal; 2018-07-13)
PROC: 0W9B3ZZ Drainage of Left Pleural Cavity, Percutaneous Approach (ICD-10-PCS; 2018-07-16)
DX: C50.919 Malignant neoplasm of unspecified site of unspecified female breast (principal); J18.9 Pneumonia, unspecified organism; J96.01 Acute respiratory failure with hypoxia; E43 Unspecified severe protein-calorie malnutrition; J91.0 Malignant pleural effusion; J98.11 Atelectasis; C79.51 Secondary malignant neoplasm of bone; I25.10 Atherosclerotic heart disease of native coronary artery without angina pectoris; J45.909 Unspecified asthma, uncomplicated; I11.0 Hypertensive heart disease with heart failure; I50.9 Heart failure, unspecified; E78.5 Hyperlipidemia, unspecified; Z68.22 Body mass index [BMI] 22.0-22.9, adult; E11.9 Type 2 diabetes mellitus without complications; Z83.3 Family history of diabetes mellitus; Z80.0 Family history of malignant neoplasm of digestive organs; Z85.3 Personal history of malignant neoplasm of breast; Z98.41 Cataract extraction status, right eye; Z98.42 Cataract extraction status, left eye
CPT/HCPCS: 36415; 36600; 60300; 71045; 71275; 76942; 80048; 80053; 80076; 81001; 82042; 82550; 82803; 82945; 82947; 83615; 83690; 83735; 83880; 84157; 84443; 84484; 85007; 85025; 85379; 85610; 85730; 87040; 87071; 87075; 87641; 93005; 93970; 94640; 96361; 96372; 96374; 96375; J0696; J1650; J1815; J1940; J1956; J2405; J2930; J7120; J7620; J7626; Q0167; Q9967; 97110; 97116; 97530; 99285-25

== ENCOUNTER → 2018-07-30 | Outpatient (CLI) | payer OTHER, MEDICARE ==
[2018-07-16 18:05] VITALS: BP 142/49
[~2018-07-30] MED LIST changes: +BUDE10.2 IH; +BUME2TAB3 PO; +DRON5CAP2 PO; +INSU100C SQ; +INSU100I13 SQ; +IPRA3AMP29 NEB; +MESA1.2T PO; +MONT10TA80 PO; -MONT10TA9 PO; +ONDA8TAB9 PO; +PACL100V IV; +POLY17PO5 PO; +POTA10TA10 PO; +SIME80TA14 PO; +SPIR25TA5 PO; +ZOLP10TA PO
[2018-07-30 14:35] LABS: CALCIUM 9.1 mg/dL (8.5-10.1); CREATININE 0.7 mg/dL (0.6-1.0); GFR 98.4; POTASSIUM 4.2 mmol/L (3.5-5.1)
== END | disposition home or self-care (01) ==
LOC: LAB 13:40
PROVIDERS: ATTEND Internal Medicine Cardiovascular Disease
DX: I50.32 Chronic diastolic (congestive) heart failure (principal)
CPT/HCPCS: 36415; 80048; 83880; 84443

== ENCOUNTER → 2018-07-30 | Outpatient (CLI) | payer OTHER, MEDICARE ==
[2018-07-16 18:05] VITALS: BP 142/49
[2018-07-30 14:11] LABS: BASO % 1 % (0-3); EOS % 2 % (0-3); HEMOGLOBIN 8.7 g/dL (12.0-15.5); LYMPH # 0.3 x10^3/uL (1.0-4.8); LYMPH % 22 % (24-48); MEAN CORPUSCULAR HEMOGLOBIN 28 pg (25-35); MEAN CORPUSCULAR HGB CONC 33 g/dL (31-37); MEAN CORPUSCULAR VOLUME 83 fL (79-100); MONO # 0.3 x10^3/uL (0.0-1.1); MONO % 19 % (0-9); NEUT # 0.9 x10^3uL (1.8-7.7); NEUT % 57 % (31-73); PLATELET COUNT 232 x10^3/uL (140-400); RED BLOOD COUNT 3.13 x10^6/uL (3.50-5.40); RED CELL DISTRIBUTION WIDTH 28.2 % (11.5-14.5)
[2018-07-30 14:23] LABS: WHITE BLOOD COUNT 1.5 x10^3/uL (4.0-11.0)
[2018-07-30 15:15] LABS: % SEGS 51 % (35-66)
[2018-07-30 15:16] LABS: % BANDS 5 % (0-9); % BASOS 1 % (0-3); % EOS 1 % (0-5); % LYMPHS 23 % (24-48); % MONOS 19 % (0-10); ANISOCYTOSIS MOD; HYPOCHROMIA PRESENT; MICROCYTOSIS PRESENT; PLT ESTIMATE ADEQUATE (ADEQUATE); TEAR DROP CELLS OCC
[2018-07-30 15:17] LABS: SCHISTOCYTES OCC
== END | disposition home or self-care (01) ==
LOC: LAB 13:56
PROVIDERS: ATTEND Nurse Practitioner Adult Health
DX: C50.912 Malignant neoplasm of unspecified site of left female breast (principal); Z17.0 Estrogen receptor positive status [ER+]
CPT/HCPCS: 36415; 85007; 85025

== ENCOUNTER → 2018-08-13 | Outpatient (CLI) | payer OTHER, MEDICARE ==
[2018-07-16 18:05] VITALS: BP 142/49
[~2018-08-13] MED LIST changes: +CYCL5TAB PO; +OXYC1TAB15 PO
[2018-08-13 09:49] LABS: BASO % 1 % (0-3); EOS % 2 % (0-3); HEMATOCRIT 26.1 % (36.0-47.0); HEMOGLOBIN 8.5 g/dL (12.0-15.5); LYMPH # 0.4 x10^3/uL (1.0-4.8); LYMPH % 17 % (24-48); MEAN CORPUSCULAR HEMOGLOBIN 27 pg (25-35); MEAN CORPUSCULAR HGB CONC 33 g/dL (31-37); MEAN CORPUSCULAR VOLUME 84 fL (79-100); MONO # 0.3 x10^3/uL (0.0-1.1); MONO % 13 % (0-9); NEUT # 1.5 x10^3uL (1.8-7.7); NEUT % 69 % (31-73); PLATELET COUNT 265 x10^3/uL (140-400); RED BLOOD COUNT 3.11 x10^6/uL (3.50-5.40); RED CELL DISTRIBUTION WIDTH 25.6 % (11.5-14.5); WHITE BLOOD COUNT 2.2 x10^3/uL (4.0-11.0)
[2018-08-13 09:50] LABS: ALBUMIN 2.8 g/dL (3.4-5.0); ALBUMIN/GLOBULIN RATIO 0.8 (1.0-1.7); CALCIUM 9.7 mg/dL (8.5-10.1); CREATININE 0.6 mg/dL (0.6-1.0); GFR 117.6; POTASSIUM 4.4 mmol/L (3.5-5.1); TOTAL BILIRUBIN 0.3 mg/dL (0.2-1.0); TOTAL PROTEIN 6.5 g/dL (6.4-8.2)
[2018-08-13 10:37] LABS: PLT ESTIMATE ADEQUATE (ADEQUATE)
[2018-08-13 10:38] LABS: ANISOCYTOSIS MOD; MICROCYTOSIS SLIGHT; POLYCHROMASIA PRESENT
[2018-08-13 10:39] LABS: OVALOCYTES FEW; POIKILOCYTOSIS SLIGHT; TEAR DROP CELLS OCC
== END | disposition home or self-care (01) ==
LOC: LAB 08:47
PROVIDERS: ATTEND Internal Medicine Hematology & Oncology
DX: C50.912 Malignant neoplasm of unspecified site of left female breast (principal); Z17.0 Estrogen receptor positive status [ER+]
CPT/HCPCS: 36415; 80053; 85025; 86300

== ENCOUNTER 2018-08-18 14:44 | Emergency (ER) | payer OTHER, MEDICARE ==
[~2018-08-18] VITALS: Ht 160 cm; Wt 52.8 kg
[~2018-08-18 14:44] MED LIST changes: -CYCL5TAB PO; -OXYC1TAB15 PO
[2018-08-18] MEDS ORDERED: IV NORMAL SALINE 1,000ML 1,000 ML IV SCH (15:06)
--- NOTE | 2018-08-18 15:14 | PHYS DOC ---
Past History Past Medical History: Asthma, Cancer, CHF, Diabetes, Hypertension, Other (TIFFANI ZAPATA Jr., DO) Past Surgical History: Cancer Surgery (TIFFANI ZAPATA Jr., DO) Smoking: Non-smoker Alcohol Use: None Drug Use: None (TIFFANI ZAPAAT Jr., DO) Adult General Chief Complaint Chief Complaint: DIZZY/LIGHT HEADED HPI HPI Patient is a 78-year-old female who presents with complaint of dizziness that s tarted this afternoon. Patient states that she had been lying down and when she went to get up, she became very dizzy. She describes the dizziness as feeling off balance, like she is going to fall if she doesn't grab a hold of something. She denies any sensation of room spinning and states that it is not like lightheadedness or fainting sensation. She denies any chest pain or shortness of breath. She also denies any nausea or vomiting. Patient denies any lateralizing weakness. Patient also indicates that she has swelling to her left arm.[] (TIFFANI ZAPATA Jr., DO) Review of Systems Review of Systems Constitutional: Denies fever or chills [] Eyes: Denies change in visual acuity, redness, or eye pain [] Respiratory: Denies cough or shortness of breath [] Cardiovascular: No additional information not addressed in HPI [] Neurologic: Denies headache, focal weakness or sensory changes. Positive dizziness. [] All other systems were reviewed and found to be within normal limits, except as documented in this note. (TIFFANI ZAPATA Jr., DO) Current Medications Current Medications Current Medications Medications (Trade) Dose Ordered Sig/[facility] Start Time Stop Time Status Last Admin Dose Admin Sodium Chloride 1,000 ml @ 1,000 mls/hr Q1H 08/18/18 15:06 08/18/18 16:05 (TIFFANI ZAPATA Jr., DO) Allergies Allergies Allergies Coded Allergies Type Severity Reaction Last Updated Verified No Known Drug Allergies 03/24/14 No (TIFFANI ZAPATA Jr., DO) Physical Exam Physical Exam Constitutional: Well developed, well nourished, no acute distress, non-toxic appearance. [] HENT: Normocephalic, atraumatic, bilateral external ears normal, oropharynx moist, no oral exudates, nose normal. [] Eyes: PERRLA, EOMI, conjunctiva normal, no discharge. [] Neck: Normal range of motion, no tenderness, supple, no stridor. [] Cardiovascular:Heart rate regular rhythm, no murmur [] Lungs & Thorax: Bilateral breath sounds clear to auscultation [] Abdomen: Bowel sounds normal, soft, no tenderness. [] Skin: Warm, dry, no erythema, no rash. [] Extremities: No tenderness, no cyanosis, no clubbing, ROM intact. [] Neurologic: Alert and oriented X 3, no focal deficits noted. [] (TIFFANI ZAPATA Jr. DO) EKG EKG [] (TIFFANI ZAPATA Jr., DO) Radiology/Procedures Radiology/Procedures [] (TIFFANI ZAPATA Jr., DO) Radiology/[place] [address] IMAGING REPORT Signed PATIENT: ERNA FRENCH ACCOUNT: [id number] : 1940 LOCATION: ER AGE: 78 SEX: F EXAM STATUS: DEP ER ORD. PHYSICIAN: TIFFANI ZAPATA Jr., DO REASON: possible DVT PROCEDURE: VENOUS UPPER EXTREMITY LEFT Left upper extremity venous Doppler. HISTORY: History of cancer, lymph node removed left arm 2 years ago, mid arm to wrist edema Duplex ultrasound was used to evaluate the veins left upper extremity. Real-time imaging with compression, color imaging and Doppler were utilized. Jugular vein is compressible and has flow with color imaging. Subclavian has flow with color imaging and normal Doppler flow. The axillary and brachial veins are compressible and have flow with color imaging. The basilic vein is compressible and has flow with color imaging. Cephalic vein is compressible and has flow with color imaging. Radial and ulnar veins are compressible and have flow with color imaging. There is edema superficially in the arm. IMPRESSION: 1. Negative for acute deep venous thrombosis. 2. Superficial edema in the left arm. Electronically signed by: Tawanda Lombardi MD (08/18/2018 9:19 PM) [facility] DICTATED AND SIGNED BY: TAWANDA LOMBARDI MD DATE: 08/18/182118 CC: TIFFANI ZAPATA Jr., DO; LUCIO WADSWORTH MD; KANCHAN MG ~ (LUCIO WADSWORTH MD) Course & Med Decision Making Course & Med Decision Making Pertinent Labs and Imaging studies reviewed. (See chart for details) [] (TIFFANI ZAPATA Jr., DO) Course & Med Decision Making Pt. requesting discharge. Risks and Benefits discussed. Pt. declines admission for observation at this time. Will follow up with primary and oncology. Pt. and will return if any increased symptoms. Discussed current labs. Impression: 1. Dizzy 2. Metastatic Cancer- on Chemotherapy 3. Anemia hemoglobin 8.4 4. Leukopenia white count 2.0 5. Diabetes glucose 190 6. Malnutrition albumin 2.7 (LUCIO WADSWORTH MD) Dragon Disclaimer Dragon Disclaimer This electronic medical record was generated, in whole or in part, using a voice recognition dictation system. (TIFFANI ZAPATA Jr., DO) Departure Departure: Impression: Primary Impression: Dizziness Disposition: HOME, SELF-CARE Condition: STABLE Referrals: KANCHAN MG (PCP) Scripts Cyclobenzaprine Hcl (CYCLOBENZAPRINE HCL) 5 Mg Tablet 5 MG PO tidprn for muscle spasm, #30 TAB Prov: LUCIO WADSWORTH MD 08/18/18 Oxycodone Hcl/Acetaminophen (PERCOCET 5-325 MG TABLET ) 1 Each Tablet 1 TAB PO PRN Q6HRS PRN for PAIN, #30 TAB Prov: LUCIO WADSWORTH MD 08/18/18 Discharge Summary Visit Information Final Diagnosis Problems Medical Problems: (1) Dizziness Status: Acute (LUCIO WADSWORTH MD) Final Diagnosis Problems Medical Problems: (1) Dizziness Status: Acute (TIFFANI ZAPATA Jr., DO) Brief Hospital Course Allergies Allergies Coded Allergies Type Severity Reaction Last Updated Verified No Known Drug Allergies 03/24/14 No Vital Signs Vital Signs Date Time Temp Pulse Resp B/P (MAP) Pulse Ox O2 Delivery O2 Flow Rate FiO2 08/18/18 18:44 101 22 137/57 (83) 97 Room Air 08/18/18 14:45 98.3 Lab Results Laboratory Tests Test 08/18/18 16:15 08/18/18 16:36 08/18/18 21:07 White Blood Count 2.0 x10^3/uL (4.0-11.0) Red Blood Count 3.05 x10^6/uL (3.50-5.40) Hemoglobin 8.4 g/dL (12.0-15.5) Hematocrit 26.2 % (36.0-47.0) Mean Corpuscular Volume 86 fL (79-100) Mean Corpuscular Hemoglobin 28 pg (25-35) Mean Corpuscular Hemoglobin Concent 32 g/dL (31-37) Red Cell Distribution Width 25.9 % (11.5-14.5) Platelet Count 281 x10^3/uL (140-400) Neutrophils (%) (Auto) 72 % (31-73) Lymphocytes (%) (Auto) 19 % (24-48) Monocytes (%) (Auto) 8 % (0-9) Eosinophils (%) (Auto) 1 % (0-3) Basophils (%) (Auto) 0 % (0-3) Neutrophils # (Auto) 1.4 x10^3uL (1.8-7.7) Lymphocytes # (Auto) 0.4 x10^3/uL (1.0-4.8) Monocytes # (Auto) 0.2 x10^3/uL (0.0-1.1) Eosinophils # (Auto) 0.0 x10^3/uL (0.0-0.7) Basophils # (Auto) 0.0 x10^3/uL (0.0-0.2) Segmented Neutrophils % 78 % (35-66) Lymphocytes % 17 % (24-48) Monocytes % 5 % (0-10) Platelet Estimate Adequate (ADEQUATE) Hypochromasia Slight Poikilocytosis Slight Anisocytosis Mod Tear Drop Cells Occ Ovalocytes Occ Sodium Level 138 mmol/L (136-145) Potassium Level 4.6 mmol/L (3.5-5.1) Chloride Level 106 mmol/L (98-107) Carbon Dioxide Level 27 mmol/L (21-32) Anion Gap 5 (6-14) Blood Urea Nitrogen 14 mg/dL (7-20) Creatinine 0.6 mg/dL (0.6-1.0) Estimated GFR (Cockcroft-Gault) 117.6 BUN/Creatinine Ratio 23 (6-20) Glucose Level 190 mg/dL (70-99) Calcium Level 9.8 mg/dL (8.5-10.1) Magnesium Level 1.9 mg/dL (1.8-2.4) Total Bilirubin 0.3 mg/dL (0.2-1.0) Aspartate Amino Transf (AST/SGOT) 28 U/L (15-37) Alanine Aminotransferase (ALT/SGPT) 22 U/L (14-59) Alkaline Phosphatase 96 U/L (46-116) Troponin I Quantitative < 0.017 ng/mL (0-0.055) Total Protein 5.8 g/dL (6.4-8.2) Albumin 2.7 g/dL (3.4-5.0) Albumin/Globulin Ratio 0.9 (1.0-1.7) Urine Collection Type Unknown Urine Color Rosi Urine Clarity Cloudy Urine pH 6.5 Urine Specific [place] 1.015 Urine Protein 30 mg/dl (NEG-TRACE) Urine Glucose (UA) Neg mg/dL (NEG) Urine Ketones (Stick) Neg mg/dL (NEG) Urine Blood Neg (NEG) Urine Nitrite Neg (NEG) Urine Bilirubin Neg (NEG) Urine Urobilinogen Dipstick 1 mg/dL (0.2 mg/dL) Urine Leukocyte Esterase Neg (NEG) Urine RBC 0 /HPF (0-2) Urine WBC 0 /HPF (0-4) Urine Squamous Epithelial Cells Occ /LPF Urine Bacteria 0 /HPF (0-FEW) Urine Mucus Slight /LPF Glucose (Fingerstick) 118 mg/dL (70-99) Brief Hospital Course Ms. French is a 78 old female who presented with episode of dizziness. Elects to go home. US of Lt arm- no DVT. Does have some adenopathy. Pt. elects to follow up with primary and oncology. (LUCIO WADSWORTH MD) Allergies Allergies Coded Allergies Type Severity Reaction Last Updated Verified No Known Drug Allergies 03/24/14 No Vital Signs Vital Signs Date Time Temp Pulse Resp B/P (MAP) Pulse Ox O2 Delivery O2 Flow Rate FiO2 08/18/18 18:44 101 22 137/57 (83) 97 Room Air 08/18/18 14:45 98.3 Lab Results Laboratory Tests Test 08/18/18 16:15 08/18/18 16:36 08/18/18 21:07 White Blood Count 2.0 x10^3/uL (4.0-11.0) Red Blood Count 3.05 x10^6/uL (3.50-5.40) Hemoglobin 8.4 g/dL (12.0-15.5) Hematocrit 26.2 % (36.0-47.0) Mean Corpuscular Volume 86 fL (79-100) Mean Corpuscular Hemoglobin 28 pg (25-35) Mean Corpuscular Hemoglobin Concent 32 g/dL (31-37) Red Cell Distribution Width 25.9 % (11.5-14.5) Platelet Count 281 x10^3/uL (140-400) Neutrophils (%) (Auto) 72 % (31-73) Lymphocytes (%) (Auto) 19 % (24-48) Monocytes (%) (Auto) 8 % (0-9) Eosinophils (%) (Auto) 1 % (0-3) Basophils (%) (Auto) 0 % (0-3) Neutrophils # (Auto) 1.4 x10^3uL (1.8-7.7) Lymphocytes # (Auto) 0.4 x10^3/uL (1.0-4.8) Monocytes # (Auto) 0.2 x10^3/uL (0.0-1.1) Eosinophils # (Auto) 0.0 x10^3/uL (0.0-0.7) Basophils # (Auto) 0.0 x10^3/uL (0.0-0.2) Segmented Neutrophils % 78 % (35-66) Lymphocytes % 17 % (24-48) Monocytes % 5 % (0-10) Platelet Estimate Adequate (ADEQUATE) Hypochromasia Slight Poikilocytosis Slight Anisocytosis Mod Tear Drop Cells Occ Ovalocytes Occ Sodium Level 138 mmol/L (136-145) Potassium Level 4.6 mmol/L (3.5-5.1) Chloride Level 106 mmol/L (98-107) Carbon Dioxide Level 27 mmol/L (21-32) Anion Gap 5 (6-14) Blood Urea Nitrogen 14 mg/dL (7-20) Creatinine 0.6 mg/dL (0.6-1.0) Estimated GFR (Cockcroft-Gault) 117.6 BUN/Creatinine Ratio 23 (6-20) Glucose Level 190 mg/dL (70-99) Calcium Level 9.8 mg/dL (8.5-10.1) Magnesium Level 1.9 mg/dL (1.8-2.4) Total Bilirubin 0.3 mg/dL (0.2-1.0) Aspartate Amino Transf (AST/SGOT) 28 U/L (15-37) Alanine Aminotransferase (ALT/SGPT) 22 U/L (14-59) Alkaline Phosphatase 96 U/L (46-116) Troponin I Quantitative < 0.017 ng/mL (0-0.055) Total Protein 5.8 g/dL (6.4-8.2) Albumin 2.7 g/dL (3.4-5.0) Albumin/Globulin Ratio 0.9 (1.0-1.7) Urine Collection Type Unknown Urine Color Rosi Urine Clarity Cloudy Urine pH 6.5 Urine Specific [place] 1.015 Urine Protein 30 mg/dl (NEG-TRACE) Urine Glucose (UA) Neg mg/dL (NEG) Urine Ketones (Stick) Neg mg/dL (NEG) Urine Blood Neg (NEG) Urine Nitrite Neg (NEG) Urine Bilirubin Neg (NEG) Urine Urobilinogen Dipstick 1 mg/dL (0.2 mg/dL) Urine Leukocyte Esterase Neg (NEG) Urine RBC 0 /HPF (0-2) Urine WBC 0 /HPF (0-4) Urine Squamous Epithelial Cells Occ /LPF Urine Bacteria 0 /HPF (0-FEW) Urine Mucus Slight /LPF Glucose (Fingerstick) 118 mg/dL (70-99) Brief Hospital Course Ms. French is a 78 old [sex] who presented with [ ] (TIFFANI ZAPATA Jr. DO) Discharge Information Condition at Discharge: Improved Disposition/Orders: D/C to Home Dischare Medications Current Medications Sodium Chloride 1,000 ml @ 1,000 mls/hr Q1H IV Last administered on 08/18/18at 16:28; Start 08/18/18 at 15:06; Stop 08/18/18 at 16:05; Status DC Meclizine HCl (Antivert) 25 mg PRN Q6HRS PRN PO DIZZINESS Last administered on 08/18/18 16:28; Start 08/18/18 at 15:15; Stop 08/18/18 at 21:18; Status DC Lidocaine HCl (Xylocaine 2% Topical 5gm Tube) 1 allison 1X ONCE TP Last administered on 08/18/18at 15:35; Start 7/9/19 at 16:00; Stop 08/18/18 at 16:01; Status DC Oxycodone/ Acetaminophen (Percocet 5/325) 1 tab 1X ONCE PO Last administered on 08/18/18at 21:04; Start 08/18/18 at 20:15; Stop 08/18/18 at 20:16; Status DC Active Scripts Active Cyclobenzaprine Hcl 5 Mg Tablet 5 Mg PO TIDPRN Percocet 5-325 Mg Tablet (Oxycodone Hcl/Acetaminophen) 1 Each Tablet 1 Tab PO PRN Q6HRS PRN Mag-Oxide (Magnesium Oxide) 400 Mg Tablet 1 Tab PO BID 30 Days Reported Miralax (Polyethylene Glycol 3350) 17 Gm Powd.pack 1 Packet PO DAILY Lialda (Mesalamine) 1.2 Gm Tablet. 1.2 Gm PO DAILY Ambien (Zolpidem Tartrate) 10 Mg Tablet 10 Mg PO QHS PRN Abraxane (Paclitaxel Protein-Bound) 100 Mg Vial 150 Mg IV Q FRIDAY X 3 Symbicort 160-4.5 Mcg Inhaler (Budesonide/Formoterol Fumarate) 10.2 Gm Hfa.aer.ad 2 Puff IH BID Spironolactone 25 Mg Tablet 1 Tab PO DAILY Simethicone 80 Mg Tab.chew 80 Mg PO PRN TID PRN Zofran (Ondansetron Hcl) 8 Mg Tablet 1 Tab PO Q8HRS PRN Duoneb 0.5-3(2.5) Mg/3 Ml (Albuterol/Ipratropium) 3 Ml Ampul.neb 3 Ml NEB QID Humalog (Insulin Lispro) 100 Unit/1 Ml Cartridge 13 Unit SQ TIDAC Lantus Solostar (Insulin Glargine,Hum.rec.anlog) 100 Unit/1 Ml Insuln.pen 22 Unit SQ QHS Potassium Chloride 10 Meq Tablet.er 10 Meq PO DAILY Bumetanide 2 Mg Tablet 1 Tab PO DAILY Dronabinol 5 Mg Capsule 5 Mg PO TID Calcium 500 + Vit D 200 Tablet (Calcium Carbonate/Vitamin D3) 1 Each Tablet 1 Each PO DAILY Atorvastatin Calcium 20 Mg Tablet 20 Mg PO QHS Proair Hfa Inhaler (Albuterol Sulfate) 8.5 Gm Hfa.aer.ad 2 Puff IH PRN Q6HRS PRN Vitamin D3 (Cholecalciferol (Vitamin D3)) 1,000 Unit Tablet 2,000 Unit PO DAILY Losartan Potassium (Losartan Potassium) 50 Mg Tablet 50 Mg PO DAILY Montelukast Sodium Tablet (Montelukast Sodium) 10 Mg Tablet 10 Mg PO HS Labetalol Hcl 200 Mg Tablet 200 Mg PO BID Diltiazem 24HR Cd (Diltiazem Hcl) 240 Mg Cap.er.24h 1 Cap PO DAILY (LUCIO WADSWORTH MD) Dischare Medications Current Medications Sodium Chloride 1,000 ml @ 1,000 mls/hr Q1H IV Last administered on 08/18/18at 16:28; Start 08/18/18 at 15:06; Stop 08/18/18 at 16:05; Status DC Meclizine HCl (Antivert) 25 mg PRN Q6HRS PRN PO DIZZINESS Last administered on 08/18/18at 16:28; Start 08/18/18 at 15:15; Stop 08/18/18 at 21:18; Status DC Lidocaine HCl (Xylocaine 2% Topical 5gm Tube) 1 allison 1X ONCE TP Last administered on 08/18/18at 15:35; Start 08/18/18 at 16:00; Stop 08/18/18 at 16:01; Status DC Oxycodone/ Acetaminophen (Percocet 5/325) 1 tab 1X ONCE PO Last administered on 08/18/18at 21:04; Start 08/18/18 at 20:15; Stop 08/18/18 at 20:16; Status DC Active Scripts Active Cyclobenzaprine Hcl 5 Mg Tablet 5 Mg PO TIDPRN Percocet 5-325 Mg Tablet (Oxycodone Hcl/Acetaminophen) 1 Each Tablet 1 Tab PO PRN Q6HRS PRN Mag-Oxide (Magnesium Oxide) 400 Mg Tablet 1 Tab PO BID 30 Days Reported Miralax (Polyethylene Glycol 3350) 17 Gm Powd.pack 1 Packet PO DAILY Lialda (Mesalamine) 1.2 Gm Tablet. 1.2 Gm PO DAILY Ambien (Zolpidem Tartrate) 10 Mg Tablet 10 Mg PO QHS PRN Abraxane (Paclitaxel Protein-Bound) 100 Mg Vial 150 Mg IV Q FRIDAY X 3 Symbicort 160-4.5 Mcg Inhaler (Budesonide/Formoterol Fumarate) 10.2 Gm Hfa.aer.ad 2 Puff IH BID Spironolactone 25 Mg Tablet 1 Tab PO DAILY Simethicone 80 Mg Tab.chew 80 Mg PO PRN TID PRN Zofran (Ondansetron Hcl) 8 Mg Tablet 1 Tab PO Q8HRS PRN Duoneb 0.5-3(2.5) Mg/3 Ml (Albuterol/Ipratropium) 3 Ml Ampul.neb 3 Ml NEB QID Humalog (Insulin Lispro) 100 Unit/1 Ml Cartridge 13 Unit SQ TIDAC Lantus Solostar (Insulin Glargine,Hum.rec.anlog) 100 Unit/1 Ml Insuln.pen 22 Unit SQ QHS Potassium Chloride 10 Meq Tablet.er 10 Meq PO DAILY Bumetanide 2 Mg Tablet 1 Tab PO DAILY Dronabinol 5 Mg Capsule 5 Mg PO TID Calcium 500 + Vit D 200 Tablet (Calcium Carbonate/Vitamin D3) 1 Each Tablet 1 Each PO DAILY Atorvastatin Calcium 20 Mg Tablet 20 Mg PO QHS Proair Hfa Inhaler (Albuterol Sulfate) 8.5 Gm Hfa.aer.ad 2 Puff IH PRN Q6HRS PRN Vitamin D3 (Cholecalciferol (Vitamin D3)) 1,000 Unit Tablet 2,000 Unit PO DAILY Losartan Potassium (Losartan Potassium) 50 Mg Tablet 50 Mg PO DAILY Montelukast Sodium Tablet (Montelukast Sodium) 10 Mg Tablet 10 Mg PO HS Labetalol Hcl 200 Mg Tablet 200 Mg PO BID Diltiazem 24HR Cd (Diltiazem Hcl) 240 Mg Cap.er.24h 1 Cap PO DAILY (TIFFANI ZAPATA Jr. DO) Dragon Disclaimer This chart was dictated in whole or in part using Voice Recognition software in a busy, high-work load, and often noisy Emergency Department environment. It may contain unintended and wholly unrecognized errors or omissions. (LUCIO WADSWORTH MD) Dragon Disclaimer This chart was dictated in whole or in part using Voice Recognition software in a busy, high-work load, and often noisy Emergency Department environment. It may contain unintended and wholly unrecognized errors or omissions. (TIFFANI ZAPATA Jr. DO) TIFFANI ZAPATA Jr., DO Aug 18, 2018 15:14 LUCIO WADSWORTH MD Aug 19, 2018 00:09
[2018-08-18] MEDS ORDERED: MECLIZINE 12.5 MG TABLET. PO PRN (15:15)
[2018-08-18] MEDS ORDERED: LIDOCAINE 2% TOPICAL JELLY 5GM TUBE. TP ONE (16:00)
[2018-08-18 16:38] LABS: BASO % 0 % (0-3); EOS % 1 % (0-3); HEMATOCRIT 26.2 % (36.0-47.0); HEMOGLOBIN 8.4 g/dL (12.0-15.5); LYMPH # 0.4 x10^3/uL (1.0-4.8); LYMPH % 19 % (24-48); MEAN CORPUSCULAR HEMOGLOBIN 28 pg (25-35); MEAN CORPUSCULAR HGB CONC 32 g/dL (31-37); MEAN CORPUSCULAR VOLUME 86 fL (79-100); MONO # 0.2 x10^3/uL (0.0-1.1); MONO % 8 % (0-9); NEUT # 1.4 x10^3uL (1.8-7.7); NEUT % 72 % (31-73); PLATELET COUNT 281 x10^3/uL (140-400); RED BLOOD COUNT 3.05 x10^6/uL (3.50-5.40); RED CELL DISTRIBUTION WIDTH 25.9 % (11.5-14.5)
[2018-08-18 16:52] LABS: ALBUMIN 2.7 g/dL (3.4-5.0); ALBUMIN/GLOBULIN RATIO 0.9 (1.0-1.7); CALCIUM 9.8 mg/dL (8.5-10.1); CREATININE 0.6 mg/dL (0.6-1.0); GFR 117.6; MAGNESIUM 1.9 mg/dL (1.8-2.4); POTASSIUM 4.6 mmol/L (3.5-5.1); TOTAL BILIRUBIN 0.3 mg/dL (0.2-1.0); TOTAL PROTEIN 5.8 g/dL (6.4-8.2)
[2018-08-18 17:10] LABS: BACTERIA,URINE 0 /HPF (0-FEW); BILIRUBIN,URINE NEG (NEG); CLARITY,URINE CLOUDY; COLOR,URINE AMBER; GLUCOSE,URINE NEG (NEG); NITRITE,URINE NEG (NEG); RBC,URINE 0 /HPF (0-2); SQUAMOUS EPITHELIAL CELL,UR OCC /LPF; UROBILINOGEN,URINE 1 mg/dL (0.2 mg/dL); WBC,URINE 0 /HPF (0-4)
[2018-08-18 17:30] LABS: % LYMPHS 17 % (24-48); % MONOS 5 % (0-10); % SEGS 78 % (35-66); PLT ESTIMATE ADEQUATE (ADEQUATE)
[2018-08-18 17:31] LABS: OVALOCYTES OCC; TEAR DROP CELLS OCC
[2018-08-18 17:32] LABS: ANISOCYTOSIS MOD; HYPOCHROMIA SLIGHT; POIKILOCYTOSIS SLIGHT
[2018-08-18 18:44] VITALS: BP 137/57
[2018-08-18] MEDS ORDERED: OXYC1TAB15 PO (20:14)
[2018-08-18] MEDS ORDERED: CYCL5TAB PO (20:14)
[2018-08-18] MEDS ORDERED: oxyCODONE/APAP 5/325 1 TAB TABLET PO ONE (20:15)
--- NOTE | 2018-08-18 21:22 | RAD ---
Left upper extremity venous Doppler. HISTORY: History of cancer, lymph node removed left arm 2 years ago, mid arm to wrist edema Duplex ultrasound was used to evaluate the veins left upper extremity. Real-time imaging with compression, color imaging and Doppler were utilized. Jugular vein is compressible and has flow with color imaging. Subclavian has flow with color imaging and normal Doppler flow. The axillary and brachial veins are compressible and have flow with color imaging. The basilic vein is compressible and has flow with color imaging. Cephalic vein is compressible and has flow with color imaging. Radial and ulnar veins are compressible and have flow with color imaging. There is edema superficially in the arm. IMPRESSION: 1. Negative for acute deep venous thrombosis. 2. Superficial edema in the left arm. Electronically signed by: Tawanda Lombardi MD (08/18/2018 9:19 PM) [facility]
== END 2018-08-18 21:10 | disposition home or self-care (01) ==
LOC: ER 14:44
DX: R42 Dizziness and giddiness (principal); D64.9 Anemia, unspecified; D72.819 Decreased white blood cell count, unspecified; E46 Unspecified protein-calorie malnutrition; E11.9 Type 2 diabetes mellitus without complications; J45.909 Unspecified asthma, uncomplicated; I11.0 Hypertensive heart disease with heart failure; I50.9 Heart failure, unspecified; Z68.20 Body mass index [BMI] 20.0-20.9, adult; Z79.899 Other long term (current) drug therapy
CPT/HCPCS: 36415; 80053; 81001; 82947; 83735; 84484; 85007; 85025; 93005; 93971; 96360; 96361; 99285; J8597; J7030

== ENCOUNTER → 2018-09-03 | Outpatient (CLI) | payer OTHER, MEDICARE ==
[2018-08-18 18:44] VITALS: BP 137/57
[~2018-09-03] MED LIST changes: +CYCL5TAB PO; +OXYC1TAB15 PO
[2018-09-03 10:45] LABS: BASO % 0 % (0-3); EOS % 1 % (0-3); HEMATOCRIT 29.5 % (36.0-47.0); HEMOGLOBIN 9.4 g/dL (12.0-15.5); LYMPH # 0.6 x10^3/uL (1.0-4.8); LYMPH % 12 % (24-48); MEAN CORPUSCULAR HEMOGLOBIN 27 pg (25-35); MEAN CORPUSCULAR HGB CONC 32 g/dL (31-37); MEAN CORPUSCULAR VOLUME 85 fL (79-100); MONO # 0.7 x10^3/uL (0.0-1.1); MONO % 16 % (0-9); NEUT # 3.3 x10^3uL (1.8-7.7); NEUT % 71 % (31-73); PLATELET COUNT 199 x10^3/uL (140-400); RED BLOOD COUNT 3.47 x10^6/uL (3.50-5.40); RED CELL DISTRIBUTION WIDTH 23.3 % (11.5-14.5); WHITE BLOOD COUNT 4.7 x10^3/uL (4.0-11.0)
[2018-09-03 11:20] LABS: ALBUMIN 2.8 g/dL (3.4-5.0); ALBUMIN/GLOBULIN RATIO 0.7 (1.0-1.7); CALCIUM 10.4 mg/dL (8.5-10.1); CREATININE 0.6 mg/dL (0.6-1.0); GFR 117.6; POTASSIUM 4.4 mmol/L (3.5-5.1); TOTAL BILIRUBIN 0.4 mg/dL (0.2-1.0); TOTAL PROTEIN 6.8 g/dL (6.4-8.2)
[2018-09-03 12:56] LABS: ANISOCYTOSIS MOD; HYPOCHROMIA SLIGHT; OVALOCYTES FEW; PLT ESTIMATE ADEQUATE (ADEQUATE); POLYCHROMASIA SLIGHT; TARGET CELLS OCC; TEAR DROP CELLS FEW
== END | disposition home or self-care (01) ==
LOC: LAB 10:21
PROVIDERS: ATTEND Nurse Practitioner Adult Health
DX: C50.912 Malignant neoplasm of unspecified site of left female breast (principal); Z17.0 Estrogen receptor positive status [ER+]
CPT/HCPCS: 36415; 80053; 85025